=== PATIENT | male | born 1955 | race Caucasian/White ===

== ENCOUNTER 2023-04-07 07:51 | Outpatient (OUT) | payer OTHER, SELFPAY ==
[2023-04-07 08:49] LABS: Basophils Absolute Auto 0.1 10^3/uL (0.0-0.1); Eosinophils Absolute Auto 0.3 10^3/uL (0.0-0.7); Eosinophils Percent Auto 3.8 % (0.9-7.0); Hematocrit 46.3 % (42.0-54.0); Hemoglobin 15.2 g/dL (14.0-18.0); Immature Granulocytes Abs Auto 0.04 10^3/uL (0.00-0.03); Immature Granulocytes Pct Auto 0.5 % (0.0-0.5); Lymphocytes Absolute Auto 1.8 10^3/uL (1.2-3.8); Lymphocytes Percent Auto 21.1 % (20.5-60.0); Mean Corpuscular HGB Conc 32.8 g/dL (29.9-35.2); Mean Corpuscular Hemoglobin 29.3 pg (25.9-34.0); Mean Corpuscular Volume 89.4 fL (80.0-94.0); Mean Platelet Volume 10.5 fL (9.5-13.5); Monocytes Absolute Auto 0.9 10^3/uL (0.3-0.8); Monocytes Percent Auto 10.6 % (1.7-12.0); Neutrophils Absolute Auto 5.3 10^3/uL (1.4-6.5); Platelet Count 314 10^3/uL (150-450); Red Blood Count 5.18 10^6/uL (4.70-6.10); Red Cell Distribution Width 13.1 % (11.0-15.0); White Blood Count 8.4 10^3/uL (4.0-11.0)
[2023-04-07 10:04] LABS: Free T4 1.05 ng/dL (0.76-1.46)
[2023-04-07 10:10] LABS: Prostate Specific Antigen Scrn 0.84 ng/mL (<=4.00)
[2023-04-07 10:43] LABS: Alanine Aminotransferase 23 U/L (16-63); Albumin Globulin Ratio 1.1; Alkaline Phosphatase 94 U/L (46-116); Anion Gap 10.7; Aspartate Amino Transferase 12 U/L (15-37); BUN Creatinine Ratio 21.1; Bilirubin Total 0.6 mg/dL (0.2-1.0); Calcium 8.8 mg/dL (8.5-10.1); Carbon Dioxide 27.1 mmol/L (21.0-32.0); Chloride 105 mmol/L (98-107); Chol HDL Ratio 3.6; Cholesterol 157 mg/dL (<=200); Estimated GFR (African America >60 (>=60); Estimated GFR (Non-African Ame >60 (>=60); Globulin 3.8 g/dL; Glucose 124 mg/dL (74-106); HDL Cholesterol 44 mg/dL (40-60); LDL Cholesterol Calculated 91.2 mg/dL; Potassium 3.8 mmol/L (3.5-5.1); Sodium 139 mmol/L (136-145); Thyroid Stimulating Hormone 4.479 uIU/mL (0.358-3.740); Total Protein 7.8 g/dL (6.4-8.2); Triglycerides 109 mg/dL (<=150); VLDL CHOLESTEROL 21.8 mg/dL
[2023-04-07 11:45] LABS: Estimated Average Glucose 128 mg/dL; Glycohemoglobin A1C 6.1 % (4.5-6.2)
[2023-04-07 12:02] LABS: Microalbumin Urine Random <1.3 mg/dL (<=30.0)
[2023-04-07 12:19] LABS: Bilirubin Urine NEGATIVE (NEGATIVE); Blood Urine NEGATIVE (NEGATIVE); Clarity Urine CLEAR (CLEAR); Color Urine LT. YELLOW (YELLOW); Glucose Urine UA NEGATIVE (NEGATIVE); Ketones Urine NEGATIVE (NEGATIVE); Leukocyte Esterase Urine NEGATIVE (NEGATIVE); Nitrite Urine NEGATIVE (NEGATIVE); Protein Urine NEGATIVE (NEG/TRACE); Urobilinogen Urine 0.2 EU/dL (0.2-1.0)
[2023-04-07 13:24] LABS: Bacteria Urine NONE SEEN #/HPF (NONE SEEN); Mucus Urine NONE SEEN (NONE SEEN); RBC Urine NONE SEEN #/HPF (0-2); WBC Urine NONE SEEN #/HPF (NONE SEEN)
[2023-04-07 13:25] LABS: Squamous Epithelial Cell Urine RARE #/LPF (NONE/RARE)
== END 2023-04-07 07:52 | disposition home or self-care (01) ==
LOC: LAB 07:58
PROVIDERS: PCP Nurse Practitioner; Visit Provider Nurse Practitioner
DX: R73.03 Prediabetes (principal); E03.9 Hypothyroidism, unspecified; E78.5 Hyperlipidemia, unspecified; Z12.5 Encounter for screening for malignant neoplasm of prostate
CPT/HCPCS: 36415; 80053; 80061; 81001; 82043; 83036; 84439; 84443; 85025; G0103

== ENCOUNTER 2023-11-14 13:36 | Outpatient (OUT) | payer OTHER, SELFPAY | END 2023-11-14 13:37 | disposition home or self-care (01) | LOC: PST 13:36 | PROVIDERS: PCP Nurse Practitioner; Visit Provider Surgery | DX: Z86.010 Personal history of colon polyps (principal) ==

== ENCOUNTER 2023-11-22 07:18 | Day surgery (SDC) | payer OTHER, SELFPAY ==
--- NOTE | 2023-11-22 | OP_ITS ---
OPERATION DATE: 11/22/2023 PREOPERATIVE DIAGNOSIS: Personal history of colon polyps. POSTOPERATIVE DIAGNOSIS: A 3 mm descending colon polyp. PROCEDURE: Colonoscopy to cecum with cold biopsy forceps polypectomy x1 for a 3 mm descending colon polyp. SURGEON: Jason Arriaza M.D. ANESTHESIA: Monitored anesthesia care. ESTIMATED BLOOD LOSS: Less than 1 mL. INDICATIONS AND CONSENT: Patient is a 67-year-old male with a personal history of colon polyps. Indications, risks, benefits, alternatives of proceeding with colonoscopy were explained extensively to the patient, including the risks of bleeding, colon perforation or anesthetic complications. All of his questions were answered. Informed consent was obtained. PROCEDURE: Patient brought to the operating room, placed in the left lateral decubitus position. Monitored anesthesia care was provided. Rectal exam was performed which showed no masses or blood. The scope was inserted into the anal canal. Under direct visualization was advanced. With the aid of abdominal compression, it was advanced to the cecum where cecal markings were clearly identified. There was noted to be a good prep. Upon withdrawal of the scope, mucosal surfaces were carefully examined. There were no mass lesions or inflammatory changes. Within the descending colon, there was noted to be a 3 mm sessile polyp that was removed with cold biopsy forceps with good hemostasis. Within the sigmoid colon, there was moderate to severe sigmoid diverticulosis without inflammatory changes or scarring. The scope was retroflexed in the anal canal. There were prominent rectal veins. No significant hemorrhoidal disease. The scope was then withdrawn. Patient tolerated procedure well, was sent to recovery room in good condition. Follow up colonoscopy should be in five years. CC: Sabine Verde, ELVA MARTÍNEZ
--- OUTSIDE RECORDS SUMMARY | 2023-11-22 07:21 | XMS_ITS | CCD ---
Author Name Unknown Address [address] [place] [address] Organization [facility] Care Team Providers Care Retort Engineer Name Role Phone SABINE VERDE Primary Care Physician SABINE VERDE Attending Unavailable KELSEY ESTRADA Attending Unavailable SABINE VERDE Attending Unavailable Julissa Alvarado Attending Unavailable Jason QUISPE Attending Unavailable SABINE VERDE Referring Unavailable Allergies Allergy Classification Reported Allergen(s) Allergy Type Date of Onset Reaction(s) Facility (2 sources) HYDROcodone; Translations: [hydrocodone] Drug Allergy Gastrointestinal irritation (disorder) General [facility] (2 sources) iodinated radiocontrast dyes; Translations: [iodinated radiocontrast agents] Propensity to adverse reactions to drug Anaphylaxis (disorder) General Surgery [facility] (1 source) No Known Medication Allergies; Translations: [No Known Medication Allergies] Propensity to adverse reactions (disorder) [facility] Repository Medications Current Medications Medication Drug Class(es) Dates Sig (Normalized) Sig (Original) Albuterol (Eqv-Proventil HFA) 90 mcg/inh inhalation aerosol (2 sources) Start: 10-11-2022 take 2 puff(s) by inhalation every six hours as needed for wheezing Albuterol (Eqv-Proventil HFA) 90 mcg/inh inhalation aerosol = 2 puff(s), Inhalation, q6hr, PRN Shortness of breath or wheezing, Refills(s) 0 Start Date: 10/11/22 Status: Ordered Start: 10-11-2022 Albuterol (Eqv -Proventil HFA) 90 mcg/inh inhalation aerosol Refills(s) 0 Start Date: 10/11/22 Status: Ordered amitriptyline hydrochloride 10 mg oral tablet (2 sources) Tricyclic Antidepressant Start: 10-11-2022 take 1 tablet by mouth once daily at bedtime amitriptyline 10 mg Tab 10 mg = 1 tab(s), Oral, Once a day (at bedtime), Refills(s) 0 Start Date: 10/11/22 Status: Ordered atorvastatin 40 mg oral tablet (2 sources) HMG-CoA Reductase Inhibitor Start: 10-11-2022 take 1 tablet by mouth once daily atorvastatin 40 mg Tab 40 mg = 1 tab(s), Oral, Daily, Refills(s) 0 Start Date: 10/11/22 Status: Ordered 24 hr buPROPion hydrochloride 300 mg extended release oral tablet (1 source) Aminoketone Start: 10-19-2023 take 1 tablet by mouth once daily Wellbutrin XL 300 mg/24 hours Tab-ER 300 mg = 1 tab(s), Oral, Daily, Refills(s) 0 Start Date: 10/19/23 Status: Ordered cetirizine hydrochloride 10 mg oral tablet (1 source) Histamine-1 Receptor Antagonist Start: 10-19-2023 take 1 tablet by mouth once daily cetirizine 10 mg Tab 10 mg = 1 tab(s), Oral, Daily, Refills(s) 0 Start Date: 10/19/23 Status: Ordered ibuprofen 600 mg oral tablet (1 source) Nonsteroidal Anti-inflammatory Drug Start: 10-11-2022 ibuprofen 600 mg Tab Refills(s) 0 Start Date: 10/11/22 Status: Ordered levothyroxine sodium 0.088 mg oral tablet (2 sources) l-Thyroxine Start: 10-19-2023 take 1 tablet by mouth once daily levothyroxine 88 mcg (0.088 mg) Tab 88 mcg = 1 tab(s), Oral, Daily, Refills(s) 0 Start Date: 10/19/23 Status: Ordered Start: 10-11-2022 levothyroxine 75 mcg (0.075 mg) Tab Refills(s) 0 Start Date: 10/11/22 Status: Ordered lisinopril 10 mg oral tablet (2 sources) Angiotensin Converting Enzyme Inhibitor Start: 10-11-2022 take 1 tablet by mouth once daily lisinopril 10 mg Tab 10 mg = 1 tab(s), Oral, Daily, Refills(s) 0 Start Date: 10/11/22 Status: Ordered metFORMIN hydrochloride 500 mg oral tablet (2 sources) Biguanide Start: 10-11-2022 take 1 tablet by mouth twice daily metformin 500 mg Tab 500 mg = 1 tab(s), Oral, BID, Refills(s) 0 Start Date: 10/11/22 Status: Ordered montelukast 10 mg oral tablet (2 sources) Leukotriene Receptor Antagonist Start: 10-11-2022 take 1 tablet by mouth once daily in the evening montelukast 10 mg Tab 10 mg = 1 tab(s), Oral, qPM, Refills(s) 0 Start Date: 10/11/22 Status: Ordered SUMAtriptan 25 mg oral tablet (1 source) Serotonin-1b and Serotonin-1d Receptor Agonist Start: 10-19-2023 take 1 tablet by mouth once Imitrex 25 mg Tab 25 mg = 1 tab(s), Oral, Once, Refills(s) 0 Start Date: 10/19/23 Status: Ordered tadalafil 5 mg oral tablet (4 sources) Phosphodiesterase 5 Inhibitor Start: 10-12-2022 take 1 tablet by mouth once daily, then take 1 tablet by mouth once daily, then take 4 tablets by mouth once daily Cialis 5 mg oral tablet 5 mg = 1 tab(s), Oral, Daily, Take 5mg daily for BPH and ED. Do not exceed 20mg/day total, # 30 tab(s), Refills(s) 6, Pharmacy: [facility]/pharmacy #[id number], 178, cm, 10/12/22 9:09:00 EST, Height/Length Dosing, 97.5, kg, 10/12/22 9:09:00 EST, Weight Dosing Start Date: 10/12/22 Status: Ordered Start: 10-12-2022 take 1 tablet by reese th once daily as needed, then take 2 tablets by mouth once daily as needed Cialis 10 mg Tab 10 mg = 1 tab(s), Oral, Daily, PRN for erectile dysfunction, 1-2 hours prior to intercourse. Do not exceed 20mg/day, # 30 tab(s), Refills(s) 3, Pharmacy: [facility]/pharmacy #[id number], 178, cm, 10/12/22 9:09:00 EST, Height/Length Dosing, 97.5, kg, 10/12/22 9:09:00 EST, Weight Dosing Start Date: 10/12/22 Status: Ordered Trelegy Ellipta (2 sources) Start: 10-12-2022 Trelegy Ellipt a Inhalation, Daily, Refills(s) 0 Start Date: 10/12/22 Status: Ordered Problems Problem Classification Problem Date Documented Date Episodic/Chronic Asthma (2 sources) Asthma 10-07-2022 Chronic Diabetes mellitus without complication (1 source) Prediabetes 10-19-2023 Episodic Disorders of lipid metabolism (1 source) Hyperlipidemia 10-19-2023 Chronic Diverticulosis and diverticulitis (1 source) Diverticular disease 10-19-2023 Chronic Essential hypertension (2 sources) Hypertensive disorder 10-07-2022 Chronic Hyperplasia of prostate (3 sources) Benign prostatic hypertrophy with outflow obstruction; Translations: [Benign prostatic hyperplasia with lower urinary tract symptoms] Onset: 10-12-2022 Chronic Mood disorders (1 source) Depressive disorder 10-19-2023 Chronic Other and unspecified benign neoplasm (3 sources) History of polyp of colon; Translations: [Personal history of colonic polyps] Onset: 11-07-2023 Episodic Other male genital disorders (3 sources) Male erectile dysfunction, unspecified; Translations: [Erectile dysfunction] Onset: 10-12-2022 Chronic Other nutritional; endocrine; and metabolic disorders (3 sources) Body mass index 30+ - obesity 10-07-2022 Chronic Other skin disorders (2 sources) Eruption 10-07-2022 Episodic Thyroid disorders (2 sources) Hypothyroidism 10-07-2022 Chronic Results Test Name Value Interpretation Reference Range Facil ity Consent for Procedure/Surger yon 11-08-2023 Consent for Procedure/Surgery [id number] #1.00TIFF Normal [facility] Ambulatory Visit Summaryon 0 11-07-2023 Ambulatory Visit Summary JULISA BATISTA :1955 Visit Date:11/07/2023 Ambulatory Visit Instructions Your Diagnosis Personal history of colonic polyps Your Care Team Attending Physician - Jason QUISPE MD Primary Care Physician - SABINE VERDE CNP Referring Physician - SABINE VERDE CNP This Is Your Medications List Contact prescribing physician if questions or concerns albuterol (Albuterol (Eqv-Proventil HFA) 90 mcg/inh inhalation aerosol) amitriptyline (amitriptyline 10 mg Tab) atorvastatin (atorvastatin 40 mg Tab) buPROPion (Wellbutrin XL 300 mg/24 hours Tab-ER) cetirizine (cetirizine 10 mg Tab) fluticasone/umeclidi nium/vilanterol (Trelegy Ellipta) levothyroxine (levothyroxine 88 mcg (0.088 mg) Tab) lisinopril (lisinopril 10 mg Tab) metformin (metformin 500 mg Tab) montelukast (montelukast 10 mg Tab) sumatriptan (Imitrex 25 mg Tab) tadalafil (Cialis 10 mg Tab) tadalafil (Cialis 5 mg oral tablet) Procedures Performed Sigmoidoscopy (06/15/2018), Colonoscopy (01/20/2015), Primary repair of esophageal atresia (2003), Colonoscopy, Excision of lipoma, Repair of inguinal hernia. Discharge Vitals Heart Rate (Peripheral) 76 Respiratory Rate 16 Blood Pressure 138/86 Height 177.8 cm Height 70 in Weight 106.7 kg Weight 234.74 lb BMI 33.75 Medications What How Much When Why Instructions Unchanged albuterol (Albuterol (Eqv-Proventil HFA) 90 mcg/ inh inhalation aerosol) 2 Puffs Inhalation Every 6 hours as needed for Shortness of breath or wheezing Contact prescribing physician if questions or concerns Unchanged amitriptyline (amitriptyline 10 mg Tab) 1 Tablets By Mouth Once a day (at bedtime) Contact prescribing physician if questions or concerns Unchanged atorvastatin (atorvastatin 40 mg Tab) 1 Tablets By Mouth Every day Contact prescribing physician if questions or concerns Unchanged buPROPion (Wellbutrin XL 300 mg/ 24 hours Tab-ER) 1 Tablets By Mouth Every day Contact prescribing physician if questions or concerns Unchanged cetirizine (cetirizine 10 mg Tab) 1 Tablets By Mouth Every day Contact prescribing physician if questions or concerns Unchanged fluticasone/ umeclidinium/ vilanterol (Trelegy Ellipta) Inhalation Every day Contact prescribing physician if questions or concerns Unchanged levothyroxine (levothyroxine 88 mcg (0.088 mg) Tab) 1 Tablets By Mouth Every day Contact prescribing physician if questions or concerns Unchanged lisinopril (lisinopril 10 mg Tab) 1 Tablets By Mouth Every day Contact prescribing physician if questions or concerns Unchanged metformin (metformin 500 mg Tab) 1 Tablets By Mouth 2 times a day Contact prescribing physician if questions or concerns Unchanged montelukast (montelukast 10 mg Tab) 1 Tablets By Mouth Once a day (in the evening) Contact prescribing physician if questions or concerns Unchanged sumatriptan (Imitrex 25 mg Tab) 1 Tablets By Mouth Once Contact prescribing physician if questions or concerns Unchanged tadalafil (Cialis 10 mg Tab) 1 Tablets By Mouth Every day as needed for for erectile dysfunction Erectile dysfunction 1-2 hours prior to intercourse. Do not exceed 20mg/ day Contact prescribing physician if questions or concerns Unchanged tadalafil (Cialis 5 mg oral tablet) 1 Tablets By Mouth Every day BPH with urinary obstruction Erectile dysfunction Take 5mg daily for BPH and ED. Do not exceed 20mg/ day total Contact prescribing physician if questions or concerns Allergies HYDROcodone (Gastrointestinal upset) iodinated radiocontrast dyes (Anaphylaxis) Problems Ongoing - Any problem that you are currently receiving treatment for. Asthma BMI 33.0-33.9,adult BPH with urinary obstruction Depression Diverticulosis Erectile dysfunction History of colon polyps Hyperlipidemia Hypertension Hypothyroidism Obesity (BMI 30-39.9) Personal history of colonic polyps Prediabetes Historical - Any problem that you are no longer receiving treatment for. Rash of hands Patient Survey You may receive a survey via text or e-mail asking about your office visit. Please share your experience with us by completing your survey. We appreciate your feedback and thank you for choosing us for your care. [facility] Consultation Noteon 10-05-19 24 Consultation Note [id number] #1.00TIFF [facility] Physician Referralon 024 Physician Referral [id number] #1.00TIFF [facility] Physician Referralon 024 Physician Referral [id number] #1.00TIFF [facility] Vital Signs Date Time Vital Sign Value Performing Clinician Faci litosiel 11-07-2023 13:24-0500 Blood Pressure Location Jason NILL [facility] [place] 11-07-2023 13:24-0500 Diastolic blood pressure 86 mm[Hg] Jason NILL [facility] [place] 11-07-2023 13:24-0500 Heart rate 76 /min Jason NILL [facility] [place] 11-07-2023 13:24-0500 Respiratory rate 16 /min Jason NILL [facility] [place] 11-07-2023 13:24-0500 Systolic blood pressure 138 mm[Hg] Jason NILL [facility] [place] 10-12-2022 09:06-0500 Blood Pressure Location Julissa Lue [facility] 10-12-2022 09:06-0500 Diastolic blood pressure 76 mm[Hg] Julissa Lue [facility] 10-12-2022 09:06-0500 Heart rate 78 /min Julissa Lue [facility] 10-12-2022 09:06-0500 Respiratory rate 16 /min Julissa Lue [facility] 10-12-2022 09:06-0500 Systolic blood pressure 132 mm[Hg] Julissa Lue [facility] Encounters Encounter Date Encounter Type Care Provider Facility Start: 11-07-2023 End: 11-08-2023 ambulatory Jason QUISPE Facility:[facility]3] Start: 11-07-2023 End: 11-07-2023 Patient encounter procedure [facility]ISPE [facility] Start: 10-10-2023 End: 10-10-2023 ambulatory KELSEY ESTRADA Not Available Start: 09-29-2023 ambulatory Julissa Alvarado Facility:[facility] Start: 09-28-2023 End: 09-28-2023 ambulatory SABINE VERDE Not Available Start: 08-23-2023 End: 08-23-2023 ambulatory SABINE AICHHOLZ Not Available Start: 12-14-2022 ambulatory Julissa Alvarado Facility:[facility] Start: 10-12-2022 End: 10-12-2022 Patient encounter procedure Julissa WrightEhsan Floraxel [facility] Procedures Date Procedure Procedure Detail Performing Clinician Start: 06-15-2018 Sigmoidoscopy Jason Hoover GHAZAL Start: 01-20-2015 Colonoscopy Jason ELIZABETH LL Start: 09-25-2003 Primary repair of esophageal atresia Julissa Christiano Colonoscopy Jason RADHAL Excision of lipoma Jason Hoover GHAZAL History of hernia repair Imani Alvarado Repair of inguinal hernia Prachi morgan RADHAL Immunizations Immunization Date Immunization Notes Care Provider [facility] 06-01-2023 influenza virus vaccine, unspecified formulation Jason GARCIAL [facility] [place] 05-03-2023 SARS-CoV-2 (COVID-19 ) [id number] Jason GARCIAL [facility] [place] 07-25-2022 influenza virus vaccine, unspecified formulation Julissa Christiano [facility] 07-25-2022 SARS-CoV-2 (COVID-19 ) [id number] Julissa Alvarado [facility] 07-07-2015 influenza virus vaccine, unspecified formulation Julissa Alvarado [facility] 01-20-2015 tetanus toxoid, redu osman diphtheria toxoid, and acellular pertussis vaccine, adsorbed Julissa Alvarado [facility] 07-26-2014 influenza virus vaccine, unspecified formulation Julissa Alvarado [facility] Payers Date Payer Category Payer Unknown [id number] 1955 Unknown [id number] 1955 Unknown [id number] 1955 Unknown [id number] 1955 Unknown [id number] [id number] 1955 Unknown [id number] [id number] Social History Date Type Detail Facility Start: 10-12-2022 End: 11-07-2023 Tobacco smoking status Ex-smoker (finding) [facility] Tobacco smoking status Never [facility] Sex Assigned At Male [facility] Functional Status Date Assessment Result Facility 11-07-2023 [facility] Status N[facility]A [facility] Functional Status N/A [facility] Clinical Note 11-07-2023 Note Date & Type Note Facility 11-07-2023 Note Chief Complaint consultation for colonoscopy HPI Staff 67 year old male presents on consultation from Sabine Verde for surveillance colonoscopy. Colonoscopy completed 12/2014 with polyp of ascending colon with recommended repeat in 3 years; pathology not available. Attempted colonoscopy completed 05/2018 converted to sigmoidoscopy as scope was unable to advance past descending colon; unremarkable. Father with history of colon cancer, diagnosed age 72. Denies abdominal or rectal pain. No rectal bleeding or change in bowel habits. Denies nausea or vomiting. No unexplained weight loss. History of Present Illness 67 yo male with h/o htn, hyperlipidemia, hypothyroidism, asthma, bph, referred for surveillance colonoscopy; patient had colonoscopy 12/2014 at [facility] with removal of 8 mm ascending colon polyp, pathology not available; recommend f/u colonoscopy in 3 years, had attempted colonoscopy in [place] in 2018, only got to distal descending colon; abd operations significant for inguinal hernia repair and LS Lynn fundoplication; on ibuprofen prn, no asa, no SBE prophylaxis; fmhx of colon cancer in patient's father dx in his 70's, no fmhx of IBD. no tobacco use. Review of Systems PHQ Score Initial Depression Screen Score: 0 SCORE ROS - Provider Constitutional: no fever, no sweats, no weight loss. Eyes: no glasses, no blurred vision, no visual loss. ENMT: no dentures, no hoarseness, no swallowing difficulties, no hearing loss, no ear infection(s), no nose bleeds. Cardiovascular: normal blood pressure, no chest pain, regular heartbeat, no heart murmur. Respiratory: no shortness of breath, no cough, no asthma, no wheezing. Gastrointestinal: no nausea, no vomiting, no diarrhea, no constipation, no blood in stool, no change in bowel habits, no abdominal pain, no hepatitis. Genitourinary: no kidney stones, no urine infection, no dysuria. Musculoskeletal: no pain, no weakness. Skin: no changing moles, no rash, no skin lumps. Neurologic: no seizures, no epilepsy, no headache. Psychiatric: no emotional or psychiatric problem. Heme/Lymph: no bleeding problems, no anemia, no blood clots, no transfusions. Allergy/Immunologic: no swollen lymph nodes/glands, no IV drug abuse. Other: Additional ROS info: Except as noted in the above Review of Systems and in the History of Present Illness, all other systems have been reviewed and are negative or noncontributory. Physical Exam Vitals & Measurements HR: 76(Peripheral) RR: 16 BP: 138/86 HT: 70 in HT: 177.8 cm WT: 106.7 kg WT: 234.74 lb BMI: 33.75 HEENT: normal conjunctiva, sclera clear, no scleral icterus, EOM intact, PERRLA, oral mucosa moist without lesions. Neck: trachea midline, no mass, symmetric, no thyromegaly or nodules, no adenopathy Respiratory: lungs CTA, respirations non labored. Cardiovascular: regular rate and rhythm, no murmur, no pedal edema or varicosities. Gastrointestinal: soft, non distended, no tenderness, no masses, no palpable hernias, diastasis recti no, no hepatosplenomegaly; normal bs Lymphatic: no cervical adenopathy, no supraclavicular adenopathy. Musculoskeletal: normal gait, digits and nails without infection, nodes, cyanosis, clubbing. Skin: no rashes, no lesions, no ulcers, no subcutaneous nodules, induration. Psychiatric/Neuro: oriented to time, place, person, judgement normal, affect appropriate for age, insight intact, no focal deficits. Tests: review of old records completed , Discussed surgical options, risks, and possible complications with patient. Assessment/Plan 1. Personal history of colonic polyps (Z86.010: Personal history of colonic polyps) plan colonoscopy under anesthesia, informed consent obtained. Follow-up No qualifying data available Problem List/Past Medical History Ongoing Asthma BMI 33.0-33.9,adult BPH with urinary obstruction Depression Diverticulosis Erectile dysfunction History of colon polyps Hyperlipidemia Hypertension Hypothyroidism Obesity (BMI 30-39.9) Personal history of colonic polyps Prediabetes Historical Rash of hands Procedure/Surgical History Sigmoidoscopy (06/15/2018), Colonoscopy (01/20/2015), Primary repair of esophageal atresia (2003), Colonoscopy, Excision of lipoma, Repair of inguinal hernia. Medications Albuterol (Eqv-Proventil HFA) 90 mcg/inh inhalation aerosol, 2 puff(s), Inhalation, q6hr, PRN amitriptyline 10 mg Tab, 10 mg= 1 tab(s), Oral, Once a day (at bedtime) atorvastatin 40 mg Tab, 40 mg= 1 tab(s), Oral, Daily cetirizine 10 mg Tab, 10 mg= 1 tab(s), Oral, Daily Cialis 10 mg Tab, 10 mg= 1 tab(s), Oral, Daily, PRN, 3 refills Cialis 5 mg oral tablet, 5 mg= 1 tab(s), Oral, Daily, 6 refills Imitrex 25 mg Tab, 25 mg= 1 tab(s), Oral, Once levothyroxine 88 mcg (0.088 mg) Tab, 88 mcg= 1 tab(s), Oral, Daily lisinopril 10 mg Tab, 10 mg= 1 tab(s), Oral, Daily metformin 500 mg Tab, 500 mg= 1 tab(s), Oral, BID montelukast 10 mg Tab, 10 mg= 1 tab(s), Oral, qPM Trele (more content not included)... [facility] Comment on above: Result Comment: Elec tronically Signed By: JOSE ENRIQUE PAREDES, Jason Charles.[email or web address]\Date and Time Signed: 11/07/23 14:00 EST Hospital Discharge instructions 10-12-2022 Note Date & Type Note Facility 10-12-2022 Hospital Discharge instructions Patient Education 10/12/2022 09:34:22 Benign Prostatic Hyperplasia Benign Prostatic Hyperplasia Benign prostatic hyperplasia (BPH) is an enlarged prostate gland that is caused by the normal aging process and not by cancer. The prostate is a walnut-sized gland that is involved in the production of semen. It is located in front of the rectum and below the bladder. The bladder stores urine and the urethra is the tube that carries the urine out of the body. The prostate may get bigger as a man gets older. An enlarged prostate can press on the urethra. This can make it harder to pass urine. The build-up of urine in the bladder can cause infection. Back pressure and infection may progress to bladder damage and kidney (renal) failure. What are the causes? This condition is part of a normal aging process. However, not all men develop problems from this condition. If the prostate enlarges away from the urethra, urine flow will not be blocked. If it enlarges toward the urethra and compresses it, there will be problems passing urine. What increases the risk? This condition is more likely to develop in men over the age of 50 years. What are the signs or symptoms? Symptoms of this condition include: Getting up often during the night to urinate. Needing to urinate frequently during the day. Difficulty starting urine flow. Decrease in size and strength of your urine stream. Leaking (dribbling) after urinating. Inability to pass urine. This needs immediate treatment. Inability to completely empty your bladder. Pain when you pass urine. This is more common if there is also an infection. Urinary tract infection (UTI). How is this diagnosed? This condition is diagnosed based on your medical history, a physical exam, and your symptoms. Tests will also be done, such as: A post-void bladder scan. This measures any amount of urine that may remain in your bladder after you finish urinating. A digital rectal exam. In a rectal exam, your health care provider checks your prostate by putting a lubricated, gloved finger into your rectum to feel the back of your prostate gland. This exam detects the size of your gland and any abnormal lumps or growths. An exam of your urine (urinalysis). A prostate specific antigen (PSA) screening. This is a blood test used to screen for prostate cancer. An ultrasound. This test uses sound waves to electronically produce a picture of your prostate gland. Your health care provider may refer you to a specialist in kidney and prostate diseases (urologist). How is this treated? Once symptoms begin, your health care provider will monitor your condition (active surveillance or watchful waiting). Treatment for this condition will depend on the severity of your condition. Treatment may include: Observation and yearly exams. This may be the only treatment needed if your condition and symptoms are mild. Medicines to relieve your symptoms, including: ?Medicines to shrink the prostate. ?Medicines to relax the muscle of the prostate. Surgery in severe cases. Surgery may include: ?Prostatectomy. In this procedure, the prostate tissue is removed completely through an open incision or with a laparoscope or robotics. ?Transurethral resection of the prostate (TURP). In this procedure, a tool is inserted through the opening at the tip of the penis (urethra). It is used to cut away tissue of the inner core of the prostate. The pieces are removed through the same opening of the penis. This removes the blockage. ?Transurethral incision (TUIP). In this procedure, small cuts are made in the prostate. This lessens the prostate's pressure on the urethra. ?Transurethral microwave thermotherapy (TUMT). This procedure uses microwaves to create heat. The heat destroys and removes a small amount of prostate tissue. ?Transurethral needle ablation (TUNA). This procedure uses radio frequencies to destroy and remove a small amount of prostate tissue. ?Interstitial laser coagulation (ILC). This procedure uses a laser to destroy and remove a small amount of prostate tissue. ?Transurethral electrovaporization (TUVP). This procedure uses electrodes to destroy and remove a small amount of prostate tissue. ?Prostatic urethral lift. This procedure inserts an implant to push the lobes of the prostate away from the urethra. Follow these instructions at home: Take knqb-fjk-zgfhlex and prescription medicines only as told by your health care provider. Monitor your symptoms for any changes. Contact your health care provider with any changes. Avoid drinking large amounts of liquid before going to bed or out in public. Avoid or reduce how much caffeine or alcohol you drink. Give yourself time when you urinate. Keep all follow-up visits as told by your health care provider. This is important. Contact a health care provider if: You have unexplained back pain. Your symptoms do not get better with treatment. You develop side effects from the medicine you are taking. Your urine becomes very dark or has a bad smell. Your lower abdomen becomes distended and you have trouble passing your urine. Get help right away if: You have a fever or chills. You suddenly cannot urinate. You feel lightheaded, or very dizzy, or you faint. There are large amounts of blood or clots in the urine. Your urinary problems become hard to manage. You develop moderate to severe low back or flank pain. The flank is the side of your body between the ribs and the hip. These symptoms may represent a serious problem that is an emergency. Do not wait to see if the symptoms will go away. Get medical help right away. Call your local emergency services (911 in the [place] Do not drive yourself to the hospital. Summary Benign prostatic hyperplasia (BPH) is an enlarged prostate that is caused by the normal aging process and not by cancer. An enlarged prostate can press on the urethra. This can make it hard to pass urine. This condition is part of a normal aging process and is more likely to develop in men over the age of 50 years. Get help right away if you suddenly cannot urinate. This information is not intended to replace advice given to you by your health care provider. Make sure you discuss any questions you have with your health care provider. Document Released: 09/11/2006 Document Revised: 08/06/2019 Document Reviewed: 10/16/2017 [employer] Patient Education 2020 [employer]. 10/12/2022 09:05:53 Erectile Dysfunction Erectile Dysfunction Erectile dysfunction (ED) is the inability to get or keep an erection in order to have sexual intercourse. Erectile dysfunction may include: Inability to get an erection. Lack of enough hardness of the erection to allow penetration. Loss of the erection before sex is finished. What are the causes? This condition may be caused by: Certain medicines, such as: ?Pain relievers. ?Antihistamines. ?Antidepressants. ?Blood pressure medicines. ?Water pills (diuretics). ?Ulcer medicines. ?Muscle relaxants. ?Drugs. Excessive drinking. Psychological causes, such as: ?Anxiety. ?Depression. ?Sadness. ?Exhaustion. ?Performance fear. ?Stress. Physical causes, such as: ?Artery problems. This may include diabetes, smoking, liver disease, or atherosclerosis. ?High blood pressure. ?Hormonal problems, such as low testosterone. ?Obesity. ?Nerve problems. This may include back or pelvic injuries, diabetes mellitus, multiple sclerosis, or Parkinson disease. What are the signs or symptoms? Symptoms of this condition include: Inability to get an erection. Lack of enough hardness of the erection to allow penetration. Loss of the erection before sex is finished. Normal erections at some times, but with frequent unsatisfactory episodes. Low sexual satisfaction in either partner due to erection problems. A curved penis occurring with erection. The curve may cause pain or the penis may be too curved to allow for intercourse. Never having nighttime erections. How is this diagnosed? This condition is often diagnosed by: Performing a physical exam to find other diseases or specific problems with the penis. Asking you detailed questions about the problem. Performing blood tests to check for diabetes mellitus or to measure hormone levels. Performing other tests to check for underlying health conditions. Performing an ultrasound exam to check for scarring. Performing a test to check blood flow to the penis. Doing a sleep study at home to measure nighttime erections. How is this treated? This condition may be treated by: Medicine taken by mouth to help you achieve an erection (oral medicine). Hormone replacement therapy to replace low testosterone levels. Medicine that is injected into the penis. Your health care provider may instruct you how to give yourself these injections at home. Vacuum pump. This is a pump with a ring on it. The pump and ring are placed on the penis and used to create pressure that helps the penis become erect. Penile implant surgery. In this procedure, you may receive: ?An inflatable implant. This consists of cylinders, a pump, and a reservoir. The cylinders can be inflated with a fluid that helps to create an erection, and they can be deflated after intercourse. ?A semi-rigid implant. This consists of two silicone rubber rods. The rods provide some rigidity. They are also flexible, so the penis can both curve downward in its normal position and become straight for sexual intercourse. Blood vessel surgery, to improve blood flow to the penis. During this procedure, a blood vessel from a different part of the body is placed into the penis to allow blood to flow around (bypass) damaged or blocked blood vessels. Lifestyle changes, such as exercising more, losing weight, and quitting smoking. Follow these instructions at home: Medicines Take ulgq-hhp-ctwjmxd and prescription medicines only as told by your health care provider. Do not increase the dosage without first discussing it with your health care provider. If you are using self-injections, perform injections as directed by your health care provider. Make sure to avoid any veins that are on the surface of the penis. After giving an injection, apply pressure to the injection site for 5 minutes. General instructions Exercise regularly, as directed by your health care provider. Work with your health care provider to lose weight, if needed. Do not use any products that contain nicotine or tobacco, such as cigarettes and e-cigarettes. If you need help quitting, ask your health care provider. Before using a vacuum pump, read the instructions that come with the pump and discuss any questions with your health care provider. Keep all follow-up visits as told by your health care provider. This is important. Contact a health care provider if: You feel nauseous. You vomit. Get help right away if: You are taking oral or injectable medicines and you have an erection that lasts longer than 4 hours. If your health care provider is unavailable, go to the nearest emergency room for evaluation. An erection that lasts much longer than 4 hours can result in permanent damage to your penis. You have severe pain in your groin or abdomen. You develop redness or severe swelling of your penis. You have redness spreading up into your groin or lower abdomen. You are unable to urinate. You experience chest pain or a rapid heart beat (palpitations) after taking oral medicines. Summary Erectile dysfunction (ED) is the inability to get or keep an erection during sexual intercourse. This problem can usually be treated successfully. This condition is diagnosed based on a physical exam, your symptoms, and tests to determine the cause. Treatment varies depending on the cause, and may include medicines, hormone therapy, surgery, or vacuum pump. You may need follow-up visits to make sure that you are using your medicines or devices correctly. Get help right away if you are taking or injecting medicines and you have an erection that lasts longer than 4 hours. This information is not intended to replace advice given to you by your health care provider. Make sure you discuss any questions you have with your health care provider. Document Released: 09/08/2001 Document Revised: 08/24/2018 Document Reviewed: 09/27/2017 [employer] Patient Education [employer]. Follow Up Care 09/13/2022 14:25:31 With:Julissa Alvarado MD, YVROSE, URO Address: When: Unknown [facility] Evaluation + Plan note Note Date & Type Note Facility Evaluation + Plan note Future Appointments Appointment Date:12/14/2022 10:45:00 AM Scheduled Provider:Julissa Alvarado MD Location:[facility] Appointment Type:URO Office Visit [facility] Hospital course Narrative Note Date & Type Note Facility Hospital course Narrative No data available for this section [facility] Hospital Discharge instructions Note Date & Type Note Facility Hospital Discharge instructions No data available for this section General Surgery [place] Progress note Note Date & Type Note Facility Progress note No data available for this section [facility] Reason for Referral Referred by: Julissa Alvarado MD No data available for this section Summary Purpose Family History No Family History Records Found No data available for this section No Family History Records Found Advance Directives No Advanced Directives Records FoundNo Advanced Directives Records Found Additional Source Comments Patient Care team informatio n (unrecognized section and content) Personnel Name: SABINE VERDE CNP Address: Address: [address] [place] [address] Personnel Name: SABINE VERDE CNP Address: Address: [address] [place] [address] (unrecognized sect ion and content) No Status Records FoundNo Status Records Found INFORMATION SOURCE (unrecogn ized section and content) DATE CREATED AUTHOR 10/11/2023 [facility] DATE CREATED AUTHOR AUTHOR'S ORGANIZ ATION 11/09/2023 [facility] FOR RECORDS PERTAINING TO PATIENTS WHO ARE OR HAVE BEEN ENROLLED IN A CHEMICAL DEPENDENCY/SUBSTANCEABUSE PROGRAM, SOME INFORMATION MAY BE OMITTED. This clinical summary was aggregated from multiple sources. Caution should be exercised in using it in the provision of clinical care. This summary normalizes information from multiple sources, and as a consequence, information in this document may materially change the coding, format and clinical context of patient data. In addition, data may be omitted in some cases. CLINICAL DECISIONS SHOULD BE BASED ON THE PRIMARY CLINICAL RECORDS. [employer] provides no warranty or guarantee of the accuracy or completeness of information in this document.
[2023-11-22 07:32] VITALS: BP 128/95; PULSE 92; RESP 20; TEMP 36.3; O2SAT 93; BMI 32.7
[2023-11-22] MEDS: LACTATED RINGER'S SOLUTION 1,000 ML 50 ML IV (07:50)
[2023-11-22 07:55] LABS: Glucometer 108 mg/dL (74-106)
[2023-11-22 09:00] VITALS: BP 88/59; PULSE 88; RESP 16; O2SAT 93
[2023-11-22 09:10] VITALS: BP 89/46; PULSE 82; RESP 18; O2SAT 94
[2023-11-22 09:20] VITALS: BP 101/87; PULSE 80; RESP 18; O2SAT 97
[2023-11-22 09:30] VITALS: BP 127/75; PULSE 90; RESP 16; O2SAT 95
== END 2023-11-22 09:51 | disposition home or self-care (01) ==
PROVIDERS: PCP Nurse Practitioner; Visit Provider Surgery
PROC: (CPT 00811; principal; 2023-11-22 08:20)
DX: K57.30 Diverticulosis of large intestine without perforation or abscess without bleeding (principal); Z86.010 Personal history of colon polyps; K63.5 Polyp of colon; J45.909 Unspecified asthma, uncomplicated; N40.1 Benign prostatic hyperplasia with lower urinary tract symptoms; N52.9 Male erectile dysfunction, unspecified; E78.5 Hyperlipidemia, unspecified; I10 Essential (primary) hypertension; E03.9 Hypothyroidism, unspecified; Z86.16 Personal history of COVID-19; Z80.0 Family history of malignant neoplasm of digestive organs; Z79.899 Other long term (current) drug therapy; Z79.84 Long term (current) use of oral hypoglycemic drugs; R73.03 Prediabetes; Z87.891 Personal history of nicotine dependence
CPT/HCPCS: 00811; 45380; 36415; 82948; 88305; 99999; J2704

== ENCOUNTER 2024-08-27 10:11 | Outpatient (OUT) | payer OTHER, SELFPAY ==
[2024-08-27 11:03] LABS: Internal Control Within Normal Limits; SARS-CoV-2 Ag NEGATIVE (NEGATIVE)
[2024-08-27 15:14] LABS: Anion Gap 10.3; BUN Creatinine Ratio 19.6; Calcium 9.6 mg/dL (8.5-10.1); Carbon Dioxide 31.8 mmol/L (21.0-32.0); Chloride 101 mmol/L (98-107); Estimated GFR (African America >60 (>=60 mL/min/1.73m^2); Estimated GFR (Non-African Ame >60 (>=60 mL/min/1.73m^2); Glucose 161 mg/dL (74-106); Potassium 4.1 mmol/L (3.5-5.1); Sodium 139 mmol/L (136-145)
== END 2024-08-27 10:12 | disposition home or self-care (01) ==
LOC: LAB 10:14
PROVIDERS: PCP Nurse Practitioner; Visit Provider Nurse Practitioner
DX: K52.9 Noninfective gastroenteritis and colitis, unspecified (principal); Z20.822 Contact with and (suspected) exposure to COVID-19; R11.2 Nausea with vomiting, unspecified
CPT/HCPCS: 36415; 80048; 87811

== ENCOUNTER 2024-09-13 09:19 | Outpatient (OUT) | payer OTHER, SELFPAY ==
--- NOTE | 2024-09-13 09:28 | US_ITS ---
The [address] [address] Patient Name: JULISA BATISTA MRN: [id number] date: 1955 Sex: M Assigned Patient Location: US Current Patient Location: US Accession/Order Number: [id number] Exam Date: 09/13/2024 09:30 Report Date: 09/13/2024 11:39 At the request of: SJ GUARDADO Procedure: US right upper quadrant EXAM: US right upper quadrant HISTORY: Nausea And Vomiting, Right Upper Quadrant Pain COMPARISON: None. TECHNIQUE: Grayscale, color and Doppler FINDINGS: The liver measures 18 cm in length. Diffuse increase in hepatic echotexture with no focal mass. Hepatopedal flow in the main portal vein The visualized pancreas is normal. Pancreas is poorly visualized The gallbladder is normal in size. The wall measures 3 mm, normal. Negative sonographic Goldstein sign. Common bile duct measures 6.4 mm. The right kidney is normal measuring 10.8 x 5.6 x 5.7 cm. 4 mm nonobstructing nephrolith No free fluid US/US right upper quadrant IMPRESSION: Echogenic liver suggesting hepatic steatosis 4 mm nonobstructing right nephrolith. Electronically authenticated by: KIM CHEN Date: 09/13/2024 11:39
[2024-09-13 10:38] LABS: Basophils Absolute Auto 0.1 10^3/uL (0.0-0.1); Basophils Percent Auto 1.1 % (0.2-2.0); Eosinophils Absolute Auto 0.4 10^3/uL (0.0-0.7); Eosinophils Percent Auto 5.8 % (0.9-7.0); Hematocrit 44.8 % (42.0-54.0); Hemoglobin 14.7 g/dL (14.0-18.0); Immature Granulocytes Abs Auto 0.03 10^3/uL (0.00-0.03); Immature Granulocytes Pct Auto 0.5 % (0.0-0.5); Lymphocytes Absolute Auto 1.5 10^3/uL (1.2-3.8); Lymphocytes Percent Auto 23.3 % (20.5-60.0); Mean Corpuscular HGB Conc 32.8 g/dL (29.9-35.2); Mean Corpuscular Hemoglobin 28.8 pg (25.9-34.0); Mean Corpuscular Volume 87.8 fL (80.0-94.0); Mean Platelet Volume 10.7 fL (9.5-13.5); Monocytes Absolute Auto 0.7 10^3/uL (0.3-0.8); Monocytes Percent Auto 10.9 % (1.7-12.0); Neutrophils Absolute Auto 3.8 10^3/uL (1.4-6.5); Neutrophils Percent Auto 58.4 % (43.0-75.0); Platelet Count 322 10^3/uL (150-450); Red Cell Distribution Width 12.7 % (11.0-15.0); White Blood Count 6.5 10^3/uL (4.0-11.0)
[2024-09-13 10:44] LABS: Bilirubin Urine NEGATIVE (NEGATIVE); Blood Urine NEGATIVE (NEGATIVE); Clarity Urine CLEAR (CLEAR); Color Urine YELLOW (YELLOW); Glucose Urine UA NEGATIVE (NEGATIVE); Ketones Urine NEGATIVE (NEGATIVE); Leukocyte Esterase Urine NEGATIVE (NEGATIVE); Nitrite Urine NEGATIVE (NEGATIVE); Protein Urine NEGATIVE (NEG/TRACE); Specific Gravity Urine 1.015 (1.005-1.025); Urine Microscopic Indicated NO; Urobilinogen Urine 0.2 EU/dL (0.2-1.0)
[2024-09-13 11:07] LABS: Estimated Average Glucose 143 mg/dL; Glycohemoglobin A1C 6.6 % (4.5-6.2)
[2024-09-13 11:37] LABS: Alanine Aminotransferase 19 U/L (16-63); Albumin Level 3.5 g/dL (3.4-5.0); Alkaline Phosphatase 96 U/L (46-116); Anion Gap 10.3; Aspartate Amino Transferase 11 U/L (15-37); BUN Creatinine Ratio 15.2; Bilirubin Total 1.3 mg/dL (0.2-1.0); Calcium 9.2 mg/dL (8.5-10.1); Carbon Dioxide 28.1 mmol/L (21.0-32.0); Chloride 106 mmol/L (98-107); Chol HDL Ratio 3.6; Cholesterol 154 mg/dL (<=200); Estimated GFR (African America >60 (>=60 mL/min/1.73m^2); Estimated GFR (Non-African Ame >60 (>=60 mL/min/1.73m^2); Globulin 3.6 g/dL; Glucose 131 mg/dL (74-106); HDL Cholesterol 43 mg/dL (40-60); LDL Cholesterol Calculated 98.2 mg/dL; Potassium 4.4 mmol/L (3.5-5.1); Sodium 140 mmol/L (136-145); Thyroid Stimulating Hormone 2.061 uIU/mL (0.358-3.740); Total Protein 7.1 g/dL (6.4-8.2); Triglycerides 64 mg/dL (<=150); VLDL CHOLESTEROL 12.8 mg/dL
[2024-09-13 12:22] LABS: Prostate Specific Antigen Scrn 0.84 ng/mL (<=4.00)
[2024-09-13 14:06] LABS: Free T4 1.06 ng/dL (0.76-1.46)
== END 2024-09-13 09:20 | disposition home or self-care (01) ==
PROVIDERS: PCP Nurse Practitioner; Visit Provider Nurse Practitioner
DX: Z00.00 Encounter for general adult medical examination without abnormal findings (principal); R11.2 Nausea with vomiting, unspecified; R10.11 Right upper quadrant pain; Z12.5 Encounter for screening for malignant neoplasm of prostate; R73.9 Hyperglycemia, unspecified; N20.0 Calculus of kidney
CPT/HCPCS: 36415; 76705; 80053; 80061; 81003; 83036; 84439; 84443; 85025; G0103

== ENCOUNTER 2024-09-21 17:16 | Outpatient (OUT) | payer OTHER, SELFPAY ==
--- NOTE | 2024-09-21 | XR_ITS ---
The [address] [address] Patient Name: JULISA BATISTA MRN: [id number] date: 1955 Sex: M Assigned Patient Location: [facility] Current Patient Location: [facility] Accession/Order Number: [id number] Exam Date: 09/21/2024 17:55 Report Date: 09/24/2024 15:37 At the request of: SJ GUARDADO Procedure: XR thoracic spine 3V EXAMINATION: XR thoracic spine 3V HISTORY: Thoarasic pain M54.6 COMPARISON: No relevant comparison available. FINDINGS: BONES: Mild widespread spondylosis and facet osteoarthritis. No visible acute bony abnormality. DISC SPACES: Normal. No significant disc height narrowing, subluxation, or endplate abnormality. PARASPINOUS: Negative. No paraspinous abnormality is seen. OTHER: Negative. XR/XR thoracic spine 3V IMPRESSION: Mild degenerative changes Electronically authenticated by: KIM CHEN Date: 09/24/2024 15:37
--- NOTE | 2024-09-21 | XR_ITS ---
The [address] [address] Patient Name: JULISA BATISTA MRN: [id number] date: 1955 Sex: M Assigned Patient Location: [facility] Current Patient Location: Accession/Order Number: [id number] Exam Date: 09/21/2024 17:55 Report Date: 09/24/2024 08:23 At the request of: SJ GUARDADO Procedure: XR chest 2V EXAMINATION: XR chest 2V HISTORY: Pleurisy chest pain R09.1 COMPARISON: No relevant comparison available. TECHNIQUE: PA and lateral FINDINGS: LUNGS: Minimal linear opacity in the left lung base, atelectasis is favored VASCULATURE: No increased pulmonary vasculature. PLEURA: No pneumothorax, effusion, or pleural thickening. CARDIAC: No cardiomegaly or cardiac silhouette abnormality. MEDIASTINUM: No visible mass or adenopathy. BONES: No fracture or visible bone lesion. OTHER: Negative. XR/XR chest 2V IMPRESSION: Minimal left basilar atelectasis. Electronically authenticated by: KIM CHEN Date: 09/24/2024 08:23
--- OUTSIDE RECORDS SUMMARY | 2024-09-21 17:19 | XMS_ITS | CCD ---
Author Organization [facility] Care Team Providers Care Industrial Relations Specialist Name Role Phone SABINE VERDE Primary Care Physician [phone] Julissa Alvarado Attending Unavailable Jason QUISPE Attending Unavailable Jason QUISPE Attending Unavailable SABINE VERDE Referring Unavailable Jason QUISPE Attending Unavailable Ammon MEDICAL INVESTIGATOR, Sabine Unavailable Ammon MEDICAL INVESTIGATOR, Sabine Unavailable Manohar Adorno MD Unavailable Unallocated , [facility] Provider Primary Care Provi pily Manohar Adorno MD Primary Care Provider [phone] Unallocated , [facility] Provider Primary Care Provi pily Manohar Adorno MD Primary Care Provider SABINE VERDE Attending Unavailable KELSEY ESTRADA Attending Unavailable SABINE VERDE Attending Unavailable SABINE VERDE Attending Unavailable SABINE VERDE Attending Unavailable AMMON, SABINE Attending Unavailable AMMON, SABINE Attending Unavailable Manohar Adorno MD Primary Care Provider [phone] Allergies Allergy Classification Reported Allergen(s) Allergy Type Date of Onset Reaction(s) Facility (15 sources) HYDROcodone; Translations: [hydrocodone] Drug Allergy 08-23-20 Gastrointestinal irritation (disorder), GI intolerance General Surgery [facility] (2 sources) iodinated radiocontrast dyes; Translations: [iodinated radiocontrast agents] Propensity to adverse reactions to drug Anaphylaxis (disorder) General [facility] [place] (1 source) No Known Medication Allergies; Translations: [No Known Medication Allergies] Propensity to adverse reactions (disorder) [facility] Repository (12 sources) Codeine Drug Allergy 09-28-19 12 GI intolerance [facility] Work Phone: (12 sources) egg white (chicken) allergenic extract Drug Allergy 09-28-19 12 Cough [facility] (13 sources) Iodinated Contrast Media Drug Allergy 08-23-20 23 Anaphylaxis [facility] Medications Current Medications Medication Drug Class(es) Dates Sig (Normalized) Sig (Original) [id number] 200 actuat albuterol 0.09 mg/actuat metered dose inhaler (20 sources) beta2-Adrenergic Agonist Start: 05-13-2024 End: 08-11-2024 take 2 puff(s) by inhalation every six hours for wheezing albuterol HFA 90 mcg/act inhaler Indications: Mild intermittent asthma without complication (CMS/HCC) Inhale 2 puffs every 6 (six) hours if needed for wheezing or shortness of breath 54 g 05/13/2024 Active Start: 04-29-2024 albuterol (2.5 MG/3ML) 0.083% nebulizer solution Indications: Asthmatic bronchitis with acute exacerbation, unspecified asthma severity, unspecified whether persistent (CMS/HCC) USE 1 VIAL VIA NEBULIZER EVERY 8 HOURS NEEDED FOR WHEEZING OR SHORTNESS OF BREATH 825 mL 04/29/2024 Active Albuterol (Eqv-Proventil HFA) 90 mcg/inh inhalation aerosol [...] Ordered amitriptyline hydrochloride 10 mg oral tablet (14 sources) Tricyclic Antidepressant Start: 04-13-2024 End: 07-12-2024 take 1 tablet by mouth at bedtime amitriptyline (Elavil) 10 MG tablet Indications: MDD (major depressive disorder), single episode, in partial remission (HCC) (CMS/HCC) Take 1 tablet (10 mg) by mouth at bedtime 90 tablet 1 04/13/2024 Active Start: 10-11-2022 take 1 tablet by reese th once daily at bedtime amitriptyline 10 mg Tab 10 mg = 1 tab(s), Oral, Once a day (at bedtime), Refills(s) 0 Start Date: 10/11/22 Status: Ordered atorvastatin 40 mg oral tablet (15 sources) HMG-CoA Reductase Inhibitor Start: 08-30-2024 End: 11-28-2024 take 1 tablet by mouth at bedtime atorvastatin (Lipitor) 40 MG tablet Indications: Screening for prostate cancer Take 1 tablet (40 mg) by mouth at bedtime 90 tablet 08/30/2024 11/28/2024 Active Start: 02-22-2024 End: 05-22-2024 take 1 tablet by mouth in the evening atorvastatin (Lipitor) 40 MG tablet Indications: Screening for prostate cancer Take 1 tablet (40 mg) by mouth in the evening 90 tablet 1 02/22/2024 Active Start: 10-11-2022 take 1 tablet by reese th once daily atorvastatin 40 mg Tab 40 mg = 1 tab(s), Oral, Daily, Refills(s) 0 Start Date: 10/11/22 Status: Ordered 24 hr buPROPion hydrochloride 300 mg extended release oral tablet (14 sources) Aminoketone Start: 08-30-2024 End: 11-28-2024 take 1 tablet by mouth every twenty-four hours in the morning buPROPion XL (Wellbutrin XL) 300 MG 24 hr tablet Indications: MDD (major depressive disorder), single episode, in partial remission (HCC) (CMS/HCC) Take 1 tablet (300 mg) by mouth in the morning. 90 tablet 08/30/2024 11/28/2024 Active Start: 02-22-2024 End: 05-22-2024 take 1 tablet by mouth every twenty-four hours in the morning buPROPion XL (Wellbutrin XL) 300 MG 24 hr tablet Indications: MDD (major depressive disorder), single episode, in partial remission (HCC) (CMS/HCC) Take 1 tablet (300 mg) by mouth in the morning. 90 tablet 1 02/22/2024 Active Start: 10-19-2023 take 1 tablet by mouth once da angel Wellbutrin XL 300 mg/24 hours Tab-ER 300 mg = 1 tab(s), Oral, Daily, Refills(s) 0 Start Date: 10/19/23 Status: Ordered cetirizine hydrochloride 10 mg oral tablet (13 sources) Histamine-1 Receptor Antagonist Start: 04-02-2024 End: 07-01-2024 take 1 tablet by mouth in the morning cetirizine ([facility] All[facility] Relief,Cetirizine,) 10 MG tablet Indications: Seasonal allergies Take 1 tablet (10 mg) by mouth in the morning. 90 tablet 1 04/02/2024 Active Start: 10-19-2023 take 1 tablet by reese th once daily cetirizine 10 mg Tab 10 mg = 1 tab(s), Oral, Daily, Refills(s) 0 Start Date: 10/19/23 Status: Ordered hyoscyamine sulfate 0.125 mg sublingual tablet (15 sources) Start: 08-26-2024 End: 09-02-2024 take 1 tablet by mouth every six hours hyoscyamine (Levsin/SL) 0.125 MG SL tablet Indications: Gastroenteritis Take 1 tablet (0.125 mg) by mouth every 6 (six) hours if needed for cramping for up to 7 days 28 tablet 08/26/2024 Active Start: 01-25-2024 End: 08-26-2024 hyoscyamine (Levsin/SL) 0.12 5 MG SL tablet Indications: Gastroenteritis Place 1 tablet (125 mcg) under the tongue every 6 (six) hours if needed for cramping for up to 7 days 28 tablet 01/25/2024 08/26/2024 Discontinued (Therapy completed) ibuprofen 600 mg oral tablet (14 sources) Nonsteroidal Anti-inflammatory Drug Start: 10-11-2022 ibuprofen 600 mg Tab Refills(s) 0 Start Date: 10/11/22 Status: Ordered ibuprofen 600 MG tablet Take 600 mg by mouth every 12 (twelve) hours if needed for mild pain. Active levothyroxine sodium 0.088 mg oral tablet (15 sources) l-Thyroxine Start: 09-01-2024 End: 11-30-2024 take 1 tablet by mouth before mealtime levothyroxine (Synthroid, Levoxyl) 88 MCG tablet Indications: Hypothyroidism (acquired) (CMS/HCC) Take 1 tablet (88 mcg) by mouth in the morning. Take before meals. 90 tablet 09/01/2024 11/30/2024 Active Start: 03-04-2024 End: 06-02-2024 take 1 tablet by mouth before mealtime levothyroxine (Synthroid, Levoxyl) 88 MCG tablet Indications: Hypothyroidism (acquired) (CMS/HCC) Take 1 tablet (88 mcg) by mouth in the morning. Take before meals. 90 tablet 03/04/2024 Active Start: 10-19-2023 take 1 tablet by reese th once daily levothyroxine 88 mcg (0.088 mg) Tab 88 mcg = 1 tab(s), Oral, Daily, Refills(s) 0 Start Date: 10/19/23 Status: Ordered Start: 10-11-2022 levothyroxine 75 mcg (0.075 mg) Tab Refills(s) 0 Start Date: 10/11/22 Status: Ordered lisinopril 10 mg oral tablet (14 sources) Angiotensin Converting Enzyme Inhibitor Start: 04-13-2024 End: 07-12-2024 take 1 tablet by mouth in the morning lisinopril 10 MG tablet Indications: Primary hypertension (CMS/HCC) Take 1 tablet (10 mg) by mouth in the morning. 90 tablet 1 04/13/2024 Active Start: 10-11-2022 take 1 tablet by reese th once daily lisinopril 10 mg Tab 10 mg = 1 tab(s), Oral, Daily, Refills(s) 0 Start Date: 10/11/22 Status: Ordered metFORMIN hydrochloride 500 mg oral tablet (15 sources) Biguanide Start: 08-30-2024 End: 11-28-2024 take 1 tablet by mouth in the morning metFORMIN (Glucophage) 500 MG tablet Indications: Pre-diabetes Take 1 tablet (500 mg) by mouth in the morning and 1 tablet (500 mg) in the evening. Take with meals. 180 tablet 08/30/2024 11/28/2024 Active Start: 02-22-2024 End: 05-22-2024 take 1 tablet by mouth in the morning metFORMIN (Glucophage) 500 MG tablet Indications: Pre-diabetes Take 1 tablet (500 mg) by mouth in the morning and 1 tablet (500 mg) in the evening. Take with meals. 180 tablet 1 02/22/2024 Active Start: 10-11-2022 take 1 tablet by reese th twice daily metformin 500 mg Tab 500 mg = 1 tab(s), Oral, BID, Refills(s) 0 Start Date: 10/11/22 Status: Ordered montelukast 10 mg oral tablet (14 sources) Leukotriene Receptor Antagonist Start: 04-13-2024 End: 07-12-2024 take 1 tablet by mouth at bedtime montelukast (Singulair) 10 MG tablet Indications: Seasonal allergies Take 1 tablet (10 mg) by mouth at bedtime 90 tablet 1 04/13/2024 Active Start: 10-11-2022 take 1 tablet by reese th once daily in the evening montelukast 10 mg Tab 10 mg = 1 tab(s), Oral, qPM, Refills(s) 0 Start Date: 10/11/22 Status: Ordered omeprazole 20 mg delayed release oral capsule (12 sources) Proton Pump Inhibitor Start: 07-17-2024 End: 10-15-2024 take 1 capsule by mouth before mealtime omeprazole (PriLOSEC) [address] capsule Indications: Gastroesophageal reflux disease without esophagitis Take 1 capsule (20 mg) by mouth in the morning. Take before meals. Do not crush or chew.. 90 capsule 07/17/2024 10/15/2024 Active ondansetron 4 mg disintegrating oral tablet (5 sources) Serotonin-3 Receptor Antagonist Start: 08-26-2024 End: 09-02-2024 take 1 tablet by mouth every eight hours for nausea ondansetron ODT (Zofran-ODT) 4 MG disintegrating tablet Indications: Gastroenteritis Take 1 tablet (4 mg) by mouth every 8 (eight) hours if needed for vomiting or nausea for up to 7 days 21 tablet 08/26/2024 09/02/2024 Active pimecrolimus 10 mg/ml topical cream (13 sources) Calcineurin Inhibitor Immunosuppressant Start: 10-11-2022 pimecrolimus (Elidel) 1 % cream 1 (one) time each day at the same time 10/11/2022 Active SUMAtriptan 25 mg oral tablet (14 sources) Serotonin-1b and Serotonin-1d Receptor Agonist Start: 10-19-2023 take 1 tablet by mouth once Imitrex 25 mg Tab 25 mg = 1 tab(s), Oral, Once, Refills(s) 0 Start Date: 10/19/23 Status: Ordered SUMAtriptan (Imi trex) 25 MG tablet Take 25 mg by mouth if needed for migraine. May repeat dose once in 2 hours if no relief. Do not exceed 2 doses in 24 hours. Active tadalafil 5 mg oral tablet (17 sources) Phosphodiesterase 5 Inhibitor Start: 10-12-2022 take 1 tablet by mouth once daily, then take 1 tablet by mouth once daily, then take 4 tablets by mouth once daily Cialis 5 mg oral tablet 5 mg = 1 tab(s), Oral, Daily, Take 5mg daily for BPH and ED. Do not exceed 20mg/day total, # 30 tab(s), Refills(s) 6, Pharmacy: [facility]/pharmacy #[id number], 178, cm, 10/12/22 9:09:00 EST, Height/Length [...] 20mg/day, # 30 tab(s), Refills(s) 3, Pharmacy: [facility]/pharmacy #[id number], 178, cm, 10/12/22 9:09:00 EST, Height/Length Dosing, 97.5, kg, 10/12/22 9:09:00 EST, Weight Dosing Start Date: 10/12/22 Status: Ordered tamsulosin hydrochloride 0.4 mg oral capsule (8 sources) alpha-Adrenergic Anne-Marie Start: 07-18-2024 End: 10-16-2024 take 1 capsule by mouth every twenty-four hours at bedtime tamsulosin (Flomax) 0.4 MG 24 hr capsule Indications: BPH with urinary obstruction Take 1 capsule (0.4 mg) by mouth at bedtime 90 capsule 07/18/2024 10/16/2024 Active Trelegy Ellipta (2 sources) Start: 10-12-2022 Trelegy Ellipta Inhalation, Daily, Refills(s) 0 Start Date: 10/12/22 Status: Ordered Completed/Discontinued Medications Medication Drug Class(es) Dates Sig (Normalized) Sig (Original) famotidine 20 mg oral tablet (6 sources) Histamine-2 Receptor Antagonist Start: 01-25-2024 End: 07-17-2024 take 1 tablet by mouth in the morning famotidine (Pepcid) 20 MG tablet Indications: Gastroesophageal reflux disease without esophagitis Take 1 tablet (20 mg) by mouth in the morning and 1 tablet (20 mg) before bedtime. 180 tablet 1 07/17/2024 07/17/2024 Discontinued (Therapy completed) Problems Active Problems Problem Classification Problem Date Documented Date Episodic/Chronic Abdominal pain (7 sources) Right upper quadrant pain; Translations: [Right upper quadrant pain] Onset: 08-27-2024 08-27-2024 Episodic Allergic reactions (20 sources) Allergic bronchopulmonary aspergillosis; 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] Onset: 11-09-2023 11-09-2023 Chronic Asthma (20 sources) Asthma; Translations: [Asthmatic bronchitis] Onset: 09-28-2023 10-07-2022 Chronic Blindness and vision defects (13 sources) Visual impairment; Translations: [Unspecified visual loss] Onset: 11-09-2023 11-09-2023 Chronic Calculus of urinary tract (2 sources) Kidney stone; Translations: [Calculus of kidney] Onset: 09-13-2024 09-13-2024 Episodic Diabetes mellitus without complication (2 sources) Type 2 diabetes mellitus without complication; Translations: [Type 2 diabetes mellitus without complications] Onset: 09-13-2024 09-13-2024 Chronic Disorders of lipid metabolism (14 sources) Hyperlipidemia; Translations: [Hyperlipidemia, unspecified] Onset: 11-09-2023 10-19-2023 Chronic Diverticulosis and diverticulitis (14 sources) Diverticular disease; Translations: [Diverticulosis of intestine, part unspecified, without perforation or abscess without bleeding] Onset: 11-09-2023 10-19-2023 Chronic Esophageal disorders (13 sources) Gastroesophageal reflux disease without esophagitis; Translations: [Gastro-esophageal reflux disease without esophagitis] Onset: 07-17-2024 07-17-2024 Chronic Essential hypertension (17 sources) Hypertensive disorder; Translations: [Essential (primary) hypertension] Onset: 08-23-2023 10-07-2022 Chronic Hyperplasia of prostate (16 sources) Benign prostatic hypertrophy with outflow obstruction; Translations: [Benign prostatic hyperplasia with lower urinary tract symptoms] Onset: 10-12-2022 Chronic Immunizations and screening for infectious disease (13 sources) Needs influenza immunization; Translations: [Encounter for immunization] Onset: 07-17-2024 07-17-2024 Episodic Mood disorders (16 sources) Depressive disorder; Translations: [Major depression single episode, in partial remission] Onset: 08-23-2023 10-19-2023 Chronic Nausea and vomiting (10 sources) Nausea and vomiting; Translations: [Nausea with vomiting, unspecified] Onset: 08-26-2024 08-26-2024 Episodic Other male genital disorders (16 sources) Male erectile dysfunction, unspecified; Translations: [Erectile dysfunction] Onset: 10-12-2022 Chronic Other nutritional; endocrine; and metabolic disorders (20 sources) Body mass index 30+ - obesity; Translations: [Obesity, unspecified] Onset: 09-28-2023 10-07-2022 Chronic Other screening for suspected conditions (not mental disorders or infectious disease) (20 sources) Patient encounter status; Translations: [Encounter for screening for malignant neoplasm of colon] Onset: 09-28-2023 09-28-2023 Episodic Other skin disorders (2 sources) Eruption 10-07-2022 Episodic Spondylosis; intervertebral disc disorders; other back problems (13 sources) Pain in thoracic spine; Translations: [Pain in thoracic spine] Onset: 07-17-2024 07-17-2024 Episodic Thyroid disorders (18 sources) Hypothyroidism; Translations: [Acquired hypothyroidism] Onset: 08-23-2023 10-07-2022 Chronic Past or Other Problems Problem Classification Problem Date Documented Date Episodic/Chronic Abdominal hernia (13 sources) Inguinal hernia; Translations: [Unilateral inguinal hernia, without obstruction or gangrene, not specified as recurrent] Onset: 11-09-2023 11-09-2023 Episodic Allergic reactions (13 sources) Inflammatory dermatosis; Translations: [Dermatitis, unspecified] Onset: 10-10-2023 10-10-2023 Episodic Chronic obstructive pulmonary disease and bronchiectasis (13 sources) Bronchitis; Translations: [Bronchitis, not specified as acute or chronic] Onset: 12-21-2023 12-21-2023 Episodic Diabetes mellitus without complication (20 sources) Prediabetes; Translations: [Prediabetes] Onset: 08-23-2023 Resolved: 09-13-2024 10-19-2023 Episodic Mycoses (13 sources) Onychomycosis; Translations: [Tinea unguium] Onset: 09-12-2023 09-12-2023 Episodic Noninfectious gastroenteritis (17 sources) Gastroenteritis; Translations: [Noninfective gastroenteritis and colitis, unspecified] Onset: 01-25-2024 Resolved: 07-17-2024 01-25-2024 Episodic Other and unspecified benign neoplasm (16 sources) History of polyp of colon; Translations: [Personal history of colonic polyps] Onset: 11-07-2023 Episodic Pleurisy; pneumothorax; pulmonary collapse (15 sources) Pleurisy; Translations: [Pleurisy] Onset: 11-09-2023 11-09-2023 Episodic Viral infection (13 sources) Disease caused by 2019-nCoV; Translations: [COVID-19] Onset: 12-05-2023 12-05-2023 Episodic Results Test Name Value Interpretation Reference Range Facil ity ALL CBC WITH AUTO DIFFon BASOPHILS ABSOLUTE AUTO 0.1 [facility] Basophils/100 WBC (Bld) 1.1 % 0.2 - 2.0 % [facility] Eosinophils/100 WBC (Bld) 5.8 % 0.9 - 7.0 % [facility] Erythrocyte distribution width (RBC) [Ratio] 12.7 % 11.0 - 15.0 % [facility] Hematocrit (Bld) [Volume fraction] 44.8 % 42.0 - 54.0 % [facility] Hemoglobin (Bld) [Mass/Vol] 14.7 g/dL 14.0 - 18.0 g/dL [facility] IMMATURE GRANULOCYTES ABS AUTO 0.03 [facility] Immature granulocytes/100 WBC (Bld) 0.5 % 0.0 - 0.5 % [facility] LYMPHOCYTES ABSOLUTE AUTO 1.5 [facility] Lymphocytes/100 WBC (Bld) 23.3 % 20.5 - 60.0 % [facility] MCH (RBC) [Entitic mass] 28.8 pg 25.9 - 34.0 pg [facility] MCHC (RBC) [Mass/Vol] 32.8 g/dL 29.9 - 35.2 g/dL [facility] MCV (RBC) [Entitic vol] 87.8 fL 80.0 - 94.0 fL [facility] MONOCYTES ABSOLUTE AUTO 0.7 [facility] Monocytes/100 WBC (Bld) 10.9 % 1.7 - 12.0 % [facility] NEUTROPHILS ABSOLUTE AUTO 3.8 [facility] Neutrophils/100 WBC (Bld) 58.4 % 43.0 - 75.0 % [facility] Platelet mean volume (Bld) [Entitic vol] 10.7 fL 9.5 - 13.5 fL [facility] EO # 0.4 [facility] TBH PLT 322 [facility] RBC 5.1 [facility] TB WBC 6.5 [facility] SARS-COV-2 AG*on 08-27-2024 SARS-CoV-2 (COVID-19) RNA ELSA+probe Ql (Unsp spec) Negative NEGATIVE [facility] Comment on above: This test has not be en FDA cleared or approved, but has been authorized by the FDA under an Emergency Use Authorization (EUA) for use by authorized laboratories certified under CLIA that meet the requirements to perform moderate or high complexity testing. This test has been authorized only for the detection of proteins from SARS-CoV-2, not for any other viruses or pathogens. The emergency use of this test is authorized for the duration of the declaration that circumstances exist justifying the authorization of emergency use of in vitro diagnostic tests for detection and/or diagnosis of Covid-19 under section 564(b)(1) of the Act, 21 U.S.C. 360bbb-3(b)(1), unless the declaration is terminated or authorization is revoked sooner. [facility] Path[facility] Note[facility] 12-11-2023 Pathology Note [id number] 6B#1.00TIFF Normal [facility] Pathology Noteon 12-07-2023 Pathology Note [id number] 48#1.00TIFF Normal [facility] Reminderson 12-07-2023 Reminders -- From: aZhida San LPN To: N - Clinical; Sent: 12/07/2023 09:18:33 EDT Show up: 10/22/2028 07:00:00 EST Subject: colonoscopy recall Due Date/Time: 11/22/2028 07:00:00 EST Reminder/Recall Patient due for surveillance colonoscopy 11/22/2028 due to history of tubular adenoma. Normal [facility] Outside Colonoscopyon 2023 Outside Colonoscopy [id number] 63#1.00TIFF Normal [facility] Lab Reportson 11-22-2023 Lab Reports [id number] 84#1.00TIFF Normal [facility] Consent for Procedure/Surger yon 11-08-2023 Consent for Procedure/Surgery [id number] 74#1.00TIFF Normal [facility] Ambulatory Visit Summaryon 0 11-07-2023 Ambulatory Visit Summary JAY CHANDLER :1955 Visit Date:11/07/2023 Ambulatory Visit Instructions Your [...] hours Tab-ER) cetirizine (cetirizine 10 mg Tab) fluticasone/umeclid inium/vilanterol (Trelegy Ellipta) levothyroxine (levothyroxine 88 mcg (0.088 [...] you for choosing us for your care. [facility] Consultation Noteon 10-05-19 24 Consultation Note [id number] 5C#1.00TIFF [facility] Physician Referralon 024 Physician Referral [id number] 87#1.00TIFF [facility] Physician Referralon 024 Physician Referral [id number] 0B#1.00TIFF [facility] Vital Signs Date Time Vital Sign Value Performing Clinician Facility 08-26-2024 17:06-0500 Body height 177.8 cm Sabine Verde MEDICAL INVESTIGATOR Work Phone: [facility] 08-26-2024 17:06-0500 Body mass index (BMI) [Ratio] 33 kg/m2 Sabine Verde NP Work Phone: [facility] 08-26-2024 17:06-0500 Body temperature 98.1 [degF] Sabine Verde NP Work Phone: [facility] 08-26-2024 17:06-0500 Body weight 104.33 kg Sabine Davidhholz MEDICAL INVESTIGATOR Work Phone: [facility] Comment on above: pt refuses to weigh in office he weighed himself at home before coming in today 08-26-2024 17:06-0500 Diastolic blood pressure 80 mm[Hg] Sabine Estelitaholz MEDICAL INVESTIGATOR Work Phone: [facility] 08-26-2024 17:06-0500 Heart rate 91 /min Sabine Aichholz MEDICAL INVESTIGATOR Work Phone: [facility] 08-26-2024 17:06-0500 Respiratory rate 21 /min Sabine Aichholz MEDICAL INVESTIGATOR Work Phone: [facility] 08-26-2024 17:06-0500 SaO2% (BldA) [Mass fraction] 98 % Sabine Frankiehholz MEDICAL INVESTIGATOR Work Phone: [facility] 08-26-2024 17:06-0500 Systolic blood pressure 110 mm[Hg] Sabine Aichholz MEDICAL INVESTIGATOR Work Phone: [facility] 07-17-2024 14:37-0400 Body height 177.8 cm Sabine Aichholz MEDICAL INVESTIGATOR Work Phone: [facility] 07-17-2024 14:37-0400 Body mass index (BMI) [Ratio] 33.72 kg/m2 Sabine Aichholz MEDICAL INVESTIGATOR Work Phone: [facility] 07-17-2024 14:37-0400 Body temperature 98.8 [degF] Sabine Frankiehholz MEDICAL INVESTIGATOR Work Phone: [facility] 07-17-2024 14:37-0400 Body weight 106.59 kg Sabine Aichholz MEDICAL INVESTIGATOR Work Phone: [facility] 07-17-2024 14:37-0400 Diastolic blood pressure 78 mm[Hg] Sabine Aichholz MEDICAL INVESTIGATOR Work Phone: [facility] 07-17-2024 14:37-0400 Heart rate 89 /min Sabine Aichholz MEDICAL INVESTIGATOR Work Phone: [facility] 07-17-2024 14:37-0400 Respiratory rate 19 /min Sabine Caponejasmyne MEDICAL INVESTIGATOR Work Phone: [facility] 07-17-2024 14:37-0400 SaO2% (BldA) [Mass fraction] 97 % Sabine Caponejasmyne MEDICAL INVESTIGATOR Work Phone: [facility] 07-17-2024 14:37-0400 Systolic blood pressure 118 mm[Hg] Sabine Caponejasmyne MEDICAL INVESTIGATOR Work Phone: [facility] 11-07-2023 13:24-0500 Blood Pressure Location Jason NILL [facility] 11-07-2023 13:24-0500 Diastolic blood pressure 86 mm[Hg] Jason NILL [facility] 11-07-2023 13:24-0500 Heart rate 76 /min Jason NILL [facility] 11-07-2023 13:24-0500 Respiratory rate 16 /min Jason NILL [facility] 11-07-2023 13:24-0500 Systolic blood pressure 138 mm[Hg] Jason NILL [facility] 10-12-2022 09:06-0500 Blood Pressure Location Julissa Lue [facility] 10-12-2022 09:06-0500 Diastolic blood pressure 76 mm[Hg] Julissa Lue [facility] 10-12-2022 09:06-0500 Heart rate 78 /min Julissa Lue [facility] 10-12-2022 09:06-0500 Respiratory rate 16 /min Julissa Lue [facility] 10-12-2022 09:06-0500 Systolic blood pressure 132 mm[Hg] Julissa Alvarado [facility] Encounters Encounter Date Encounter Type Care Provider Facility Start: 09-13-2024 End: 09-13-2024 Clinisync Result Encounter Sabine Aichholz MEDICAL INVESTIGATOR Work Phone: [facility] Unsolicited Start: 09-13-2024 End: 09-13-2024 Clinisync Result Encounter Sabine Aichholz MEDICAL INVESTIGATOR Work Phone: [facility] Unsolicited Start: 09-13-2024 End: 09-13-2024 Orders Only Sabine Aichholz MEDICAL INVESTIGATOR Work Phone: [facility] Comment on above: RUQ pain (Primary Dx ); Type 2 diabetes mellitus without complication, without long-term current use of insulin ([facility]); Kidney stone on right side Start: 08-31-2024 End: 09-01-2024 Refill Sabine Aichholz MEDICAL INVESTIGATOR Work Phone: [facility] Comment on above: Hypothyroidism (acqu ired) ([facility]) Start: 08-27-2024 End: 08-27-2024 Clinisync Result Encounter Sabine Aichholz MEDICAL INVESTIGATOR Work Phone: [facility] Unsolicited Start: 08-27-2024 End: 08-27-2024 Clinisync Result Encounter Sabine Aichholz MEDICAL INVESTIGATOR Work Phone: [facility] Unsolicited Start: 08-27-2024 End: 08-27-2024 Orders Only Sabine Aichholz MEDICAL INVESTIGATOR Work Phone: [facility] Comment on above: Nausea and vomiting, unspecified vomiting type (Primary Dx); RUQ pain; Elevated serum glucose Start: 08-26-2024 End: 08-26-2024 ambulatory SABINE AICHHOLZ Not Available Start: 08-26-2024 End: 08-26-2024 Office outpatient visit 15 minutes Sabine Aichholz MEDICAL INVESTIGATOR Work Phone: [facility] Comment on above: Nausea and vomiting, unspecified vomiting type (Primary Dx); Obesity (BMI 30-39.9); Gastroenteritis Start: 08-26-2024 End: 08-26-2024 Bamboo flowsheet Sabine Verde MEDICAL INVESTIGATOR Work Phone: [facility] Start: 08-26-2024 End: 08-26-2024 Bamboo flowsheet Sabine Verde MEDICAL INVESTIGATOR Work Phone: [facility] Start: 07-17-2024 End: 07-17-2024 ambulatory SABINE VERDE Not Available Start: 07-17-2024 End: 07-17-2024 Office outpatient visit 25 minutes Sabine Verde MEDICAL INVESTIGATOR Work Phone: [facility] Comment on above: Primary hypertension (CMS/HCC) (Primary Dx); Allergic bronchopulmonary aspergillosis (CMS/HCC); Encounter for wellness examination in adult; Screening for prostate cancer; Needs flu shot; Pleurisy; Gastroenteritis; Gastroesophageal reflux disease without esophagitis; Obesity (BMI 30-39.9); Hypothyroidism (acquired) (CMS/HCC); Pre-diabetes; Major depressive disorder with single episode, in partial remission (HCC) (CMS/HCC); Thoracic spine pain Start: 07-17-2024 End: 07-17-2024 Bamboo flowsheet Sabine Verde MEDICAL INVESTIGATOR Work Phone: [facility] Start: 07-17-2024 End: 07-17-2024 Bamboo flowsheet Sabine Verde MEDICAL INVESTIGATOR Work Phone: [facility] Start: 07-17-2024 End: 07-17-2024 Patient encounter status Sabine Verde NP Work Phone: [facility] Start: 05-13-2024 End: 08-11-2024 Refill Teofilo Coronado MD Work Phone: [facility] Start: 05-13-2024 End: 05-13-2024 Refill Sabine Verde MEDICAL INVESTIGATOR Work Phone: [facility] Comment on above: Mild intermittent as thma without complication (CMS/HCC) (Primary Dx) Start: 03-18-2024 End: 03-18-2024 ambulatory SABINE AICHHOLZ Not Available Start: 01-25-2024 End: 01-25-2024 ambulatory SABINE AICHHOLZ Not Available Start: 12-05-2023 ambulatory Jason R NILL Facility : [facility] Start: 11-22-2023 End: 2023 ambulatory Jason R NILL Facility: [facility] Start: 11-16-2023 End: 11-16-2023 ambulatory SABINE AICHHOLZ Not Available Start: 11-07-2023 End: 11-08-2023 ambulatory Jason R NILL Facility: [facility] Start: 11-07-2023 End: 11-07-2023 Patient encounter procedure Jason R RADHAL [facility] Start: 10-10-2023 End: 10-10-2023 ambulatory KELSEY Disha ESTRADA Not Available Start: 09-29-2023 ambulatory Julissa Alvarado Facility:[facility] Start: 09-28-2023 End: 09-28-2023 ambulatory SABINE AICHHOLZ Not Available Start: 12-14-2022 ambulatory Julissa Alvarado Facility:[facility] Start: 10-12-2022 End: 10-12-2022 Patient encounter procedure Julissa Alvarado [facility] Procedures Date Procedure Procedure Detail Performing Clinician Start: 09-13-2024 ALL CBC WITH AUTO DIFF Sabine Ammon MEDICAL INVESTIGATOR Work Phone: Start: 08-27-2024 SARS-COV-2 AG* Sabine Frankie hholz MEDICAL INVESTIGATOR Work Phone: Start: 06-15-2018 Sigmoidoscopy Jason HARMAN Start: 02-06-2015 Colonoscopy Sabine Aichh olz MEDICAL INVESTIGATOR Work Phone: Start: 01-20-2015 Colonoscopy Jason ERICKSON Start: 09-25-2003 Primary repair of esophageal atresia Julissa Alvarado Colonoscopy Jason GARCIAL Excision of lipoma Jason HARMAN History of hernia repair Imani Alvarado Repair of inguinal hernia Prachi QUISPE Plan of Treatment Date Care Activity Detail Author Start: 11-22-2028 Screening for malign ant neoplasm of colon [facility] Start: 10-14-2024 End: 10-14-2024 [facility] Start: 09-23-2024 End: 09-23-2024 Patient encounter procedure 09/23/2024 7:00 PM EST Office Visit [facility] [address] [place] [address] Sabine Verde, MEDICAL INVESTIGATOR [address] [place] [phone] [facility] Start: 09-13-2024 End: 09-13-2025 NM Gallbladder Views W cholecystokinin and W radionuclide IV NM hepatobiliary w cholecystokinin Imaging Routine RUQ pain Expected: 09/13/2024 (Approximate), Expires: 09/13/2025 [facility] Work Phone: Comment on above: Expected: 09/13/2024 (Approximate), Expires: 09/13/2025 Start: 09-13-2024 End: 09-13-2025 XR Abdomen Single view XR ABDOMEN 2 VIEW Imaging Routine Kidney stone on right side Expected: 09/13/2024, Expires: 09/13/2025 [facility] Comment on above: Expected: 09/13/2024 , Expires: 09/13/2025 Start: 09-12-2024 End: 09-12-2024 Patient encounter procedure 09/12/2024 2:40 PM EST Office Visit [facility] [address] [place] [address] Sabine Verde, PRIYA [address] [place] [phone] [facility] Start: 08-27-2024 End: 08-27-2025 Hemoglobin A1c/Hemoglobin.total in Blood Hemoglobin A1c Lab Routine Elevated serum glucose Expected: 08/27/2024 (Approximate), Expires: 08/27/2025 [facility] Comment on above: Expected: 08/27/2024 (Approximate), Expires: 08/27/2025 Start: 08-27-2024 End: 08-27-2025 US Gallbladder US gallbladder Imaging Routine Nausea and vomiting, unspecified vomiting type RUQ pain Expected: 08/27/2024 (Approximate), Expires: 08/27/2025 [facility] Work Phone: Comment on above: Expected: 08/27/2024 (Approximate), Expires: 08/27/2025 Start: 08-26-2024 End: 08-26-2025 Basic metabolic 1998 panel - Serum or Plasma Basic metabolic panel Lab Routine Gastroenteritis Expected: 08/26/2024 (Approximate), Expires: 08/26/2025 [facility] Work Phone: Comment on above: Expected: 08/26/2024 (Approximate), Expires: 08/26/2025 Start: 07-17-2024 End: 07-17-2024 Patient encounter procedure 07/17/2024 2:20 PM EDT Office Visit [facility] [address] [place] [phone] Sabine Verde NP [address] [place] [phone] [facility] Start: 07-17-2024 End: 07-17-2025 CBC W Auto Differential panel - Blood CBC and differential Lab Routine Encounter for wellness examination in adult Expected: 07/17/2024 (Approximate), Expires: 07/17/2025 [facility] Work Phone: Comment on above: Expected: 07/17/2024 (Approximate), Expires: 07/17/2025 Start: 07-17-2024 End: 07-17-2025 Comprehensive metabolic 2000 panel - Serum or Plasma Comprehensive metabolic panel Lab Routine Encounter for wellness examination in adult Expected: 07/17/2024 (Approximate), Expires: 07/17/2025 [facility] Comment on above: Expected: 07/17/2024 (Approximate), Expires: 07/17/2025 Start: 07-17-2024 End: 07-17-2025 Lipid 1996 panel - Serum or Plasma Lipid panel Lab Routine Encounter for wellness examination in adult Expected: 07/17/2024 (Approximate), Expires: 07/17/2025 [facility] Comment on above: Expected: 07/17/2024 (Approximate), Expires: 07/17/2025 Start: 07-17-2024 End: 07-17-2025 Prostate specific Ag [Mass/volume] in Serum or Plasma PSA Lab Routine Screening for prostate cancer Expected: 07/17/2024 (Approximate), Expires: 07/17/2025 [facility] Comment on above: Expected: 07/17/2024 (Approximate), Expires: 07/17/2025 Start: 07-17-2024 End: 07-17-2025 Thyrotropin [Units/volume] in Serum or Plasma TSH Lab Routine Encounter for wellness examination in adult Expected: 07/17/2024 (Approximate), Expires: 07/17/2025 [facility] Comment on above: Expected: 07/17/2024 (Approximate), Expires: 07/17/2025 Start: 07-17-2024 End: 07-17-2025 Thyroxine (T4) free [Mass/volume] in Serum or Plasma T4, free Lab Routine Encounter for wellness examination in adult Expected: 07/17/2024 (Approximate), Expires: 07/17/2025 [facility] Comment on above: Expected: 07/17/2024 (Approximate), Expires: 07/17/2025 Start: 07-17-2024 End: 07-17-2025 Urinalysis complete panel - Urine Urinalysis with reflex microscopic (clean catch) Lab Routine Encounter for wellness examination in adult Expected: 07/17/2024 (Approximate), Expires: 07/17/2025 [facility] Comment on above: Expected: 07/17/2024 (Approximate), Expires: 07/17/2025 Start: 07-17-2024 End: 07-17-2025 XR Chest 2 Views XR chest 2 views Imaging Routine Pleurisy Expected: 07/17/2024 (Approximate), Expires: 07/17/2025 [facility] Comment on above: Expected: 07/17/2024 (Approximate), Expires: 07/17/2025 Start: 07-17-2024 End: 07-17-2025 XR Thoracic spine 3 Views XR thoracic spine 3 views Imaging Routine Thoracic spine pain Expected: 07/17/2024 (Approximate), Expires: 07/17/2025 [facility] Comment on above: Expected: 07/17/2024 (Approximate), Expires: 07/17/2025 Start: 05-26-2024 Influenza vaccination Influenza Vacc ine (#1) [facility] Start: 1955 Screening for malign ant neoplasm of colon [facility] Immunizations Immunization Date Immunization Notes Care Provider Tadeo bergeron 07-17-2024 Seasonal trivalent influenza vaccine, adjuvanted, preservative free Sabine Verde MEDICAL INVESTIGATOR Work Phone: [facility] 09-14-2023 SARS-CoV-2, Unspecified Sabine Verde MEDICAL INVESTIGATOR Work Phone: [facility] 08-30-2023 RSV, recombinant, protein subunit RSVpreF, adjuvant reconstitu, 120mcg/0.5mL, PF (Arexvy) Sabine Verde MEDICAL INVESTIGATOR Work Phone: [facility] 06-01-2023 influenza virus vaccine, unspecified formulation Jason QUISPE [facility] 06-01-2023 Influenza, Seasonal, Quadrivalent, Adjuvanted Sabine Verde MEDICAL INVESTIGATOR Work Phone: [facility] 05-03-2023 SARS-CoV-2 (COVID-19 ) [id number] Jason GARCIAL [facility] 07-25-2022 influenza virus vaccine, unspecified formulation Julissa Lue [facility] 07-25-2022 Influenza, High-dose Seasonal, Quadrivalent, Preservative Free Sabine Aichholz MEDICAL INVESTIGATOR Work Phone: [facility] 07-25-2022 SARS-CoV-2 (COVID-19 ) [id number] Julissa Lue [facility] 07-07-2015 influenza virus vaccine, unspecified formulation Julissa Lue [facility] 07-07-2015 influenza, seasonal, injectable, preservative free Sabine Aichholz MEDICAL INVESTIGATOR Work Phone: [facility] 01-20-2015 tetanus toxoid, redu osman diphtheria toxoid, and acellular pertussis vaccine, adsorbed Julissa Lue [facility] 07-26-2014 influenza virus vaccine, unspecified formulation Julissa Lue [facility] 07-26-2014 influenza, seasonal, injectable Sabine Aichholz MEDICAL INVESTIGATOR Work Phone: [facility] Payers Date Payer Category Payer Private Health Insurance [employer] [id number] 2023 Unknown [employer] [id number] 2023-Present [address] [place] [address] [id number] 2022 Unknown [id number] 1955 Unknown [id number] 1955 Unknown [id number] 727 1955 Unknown [id number] 727 1955 Unknown [id number] 727 1955 Unknown [id number] 1259 1955 Unknown [id number]. 1259 1955 Unknown [id number]. 1259 1955 Unknown [id number]. 1259 1955 Unknown [id number]. 1259 1955 Unknown [id number] 1259 1955 Unknown [id number] 1259 Social History Date Type Detail Facility Start: 10-12-2022 End: 11-07-2023 Tobacco smoking status Ex-smoker (finding) [facility] Tobacco smoking status Never [facility] Start: 11-02-2023 End: 03-18-2024 Sex Assigned At Male [facility] Start: 08-23-2023 Tobacco smoking stat us NHIS Never smoked tobacco [facility] Start: 08-23-2023 Tobacco use and exposure Smoke less tobacco non-user [facility] Start: 03-18-2024 End: 08-26-2024 Alcoholic beverage intake [facility] (finding) [facility] Start: 11-02-2023 End: 03-18-2024 History of Social function [facility] Within the last year , have you been afraid of your partner or ex-partner? No [facility] Do you belong to any clubs or organizations such as episcopal groups, unions, fraternal or athletic groups, or school groups? Yes [facility] Are you now , , , , never or living with a partner? [facility] How often to you hav e a drink containing alcohol? Monthly or less [facility] How many standard dr inks containing alcohol do you have on a typical day? 1 or 2 [facility] How often do you hav e 6 or more drinks on 1 occasion? Never [facility] Do you feel stress - tense, restless, nervous, or anxious, or unable to sleep at night because your mind is troubled all the time - these days [OSQ] Not at all [facility] (I/We) worried wheth er (my/our) food would run out before (I/we) got money to buy more. Never true [facility] Start: 1955 Sex assigned at Not on file [facility] Functional Status Date Assessment Result Facility 11-07-2023 Functional Status N/A [facility] 10-12-2022 Functional Status N/A [facility] Clinical Notes 10-12-2022 to 08-26-2024 Sabine Verde NP - 08/26/2024 5:48 PM Lidia Verde NP - 08/26/2024 5:37 PM ESTNORAH VELIZ - 08/26/2024 5:00 PM Lidia Verde NP - 08/26/2024 5:00 PM ESTPatient Instructions Note Date & Type Note Facility 08-26-2024 History of Present illness Narrative Associated Problem(s): Nausea & vomiting Zofran prn 2 oz fluids, hourly as tolerated Advanced diet as tolerated Associated Problem(s): Gastroenteritis Fluids, rest Treat symptoms, check of COVID No signs of acute abd Pt started with symptoms of watery stools on Monday evening. Yesterday he did have vomiting a few times. Pt is unsure if he was vomiting due to the medication or since his procedure. Pt had a low grade fever as high as 100. Pt has headaches, coughing up white mucus, weakness and fatigue Pt has not eaten since yesterday. Pt has been sipping sprite Pt has stopped vomiting since 2am Pt now only has fluid bowels Images from the original note were not included. Jay Chandler is a 68 y.o. male presents with chief complaint of Fever and Diarrhea HPI: GI Problem The primary symptoms include fever, fatigue, nausea, vomiting, diarrhea and myalgias. Primary symptoms do not include jaundice, hematochezia or dysuria. The illness began 3 to 5 days ago. The problem has not changed since onset. The fever began 3 to 5 days ago. The maximum temperature recorded prior to his arrival was 100 to 100.9 F. The fatigue began 3 to 5 days ago. The fatigue has been unchanged since its onset. Nausea began 2 days ago. The nausea is associated with eating. The nausea is exacerbated by food. The vomiting began more than 2 days ago. Vomiting occurs 2 to 5 times per day. The diarrhea began 3 to 5 days ago. The diarrhea is watery. The diarrhea occurs 5 to 10 times per day. The illness does not include dysphagia, odynophagia, bloating, constipation or tenesmus. Significant associated medical issues include GERD. SUBJECTIVE: MEDICATIONS: Current Outpatient Medications Medication Instructions albuterol (2.5 MG/3ML) 0.083% nebulizer solution USE 1 VIAL VIA NEBULIZER EVERY 8 HOURS NEEDED FOR WHEEZING OR SHORTNESS OF BREATH albuterol HFA 90 mcg/act inhaler 2 puffs, Inhalation, Every 6 hours PRN amitriptyline (ELAVIL) 10 mg, Oral, Nightly atorvastatin (LIPITOR) 40 mg, Oral, Every evening buPROPion XL (WELLBUTRIN XL) 300 mg, Oral, Every morning cetirizine ([employer] ALLERGY RELIEF(CETIRIZINE)) 10 mg, Oral, Every morning hyoscyamine (LEVSIN/SL) 0.125 mg, Oral, Every 6 hours PRN ibuprofen 600 mg, Every 12 hours PRN levothyroxine (SYNTHROID, LEVOXYL) 88 mcg, Oral, Daily before breakfast lisinopril 10 mg, Oral, Every morning metFORMIN (GLUCOPHAGE) 500 mg, Oral, 2 times daily with meals montelukast (SINGULAIR) 10 mg, Oral, Nightly omeprazole (PRILOSEC) 20 mg, Oral, Daily before breakfast, Do not crush or chew. ondansetron ODT (ZOFRAN-ODT) 4 mg, Oral, Every 8 hours PRN pimecrolimus (Elidel) 1 % cream Every 24 hours SUMAtriptan (IMITREX) 25 mg, Oral, As needed, May repeat dose once in 2 hours if no relief. Do not exceed 2 doses in 24 hours. tadalafil (Cialis) 5 MG tablet TAKE 1 TABLET DAILY FOR BPH AND ED. DO NOT EXCEED 20 MG DAILY tamsulosin (FLOMAX) 0.4 mg, Oral, Nightly ALLERGIES: Allergies Allergen Reactions Iodinated Contrast Media Anaphylaxis Hydrocodone GI intolerance Codeine GI intolerance Egg White (Egg Protein) Cough dairy, wheat, grains, peanuts, barley, Flu shot ok REVIEW OF SYMPTOMS: Review of Systems Constitutional: Positive for fatigue and fever. Negative for activity change, appetite change and unexpected weight change. HENT: Negative for ear pain, nosebleeds, sneezing, trouble swallowing and voice change. Eyes: Negative for pain, discharge and visual disturbance. Respiratory: Negative for apnea, chest tightness and wheezing. Cardiovascular: Negative for leg swelling. Gastrointestinal: Positive for diarrhea, nausea and vomiting. Negative for abdominal distention, bloating, blood in stool, constipation, dysphagia, hematochezia and jaundice. Genitourinary: Negative for decreased urine volume, difficulty urinating, dysuria and hematuria. Musculoskeletal: Positive for myalgias. Skin: Negative for color change. Neurological: Negative for dizziness, tremors and seizures. Psychiatric/Behavioral: Negative for agitation, decreased concentration, hallucinations, self-injury and suicidal ideas. The patient is not nervous/anxious. Hematological: Negative for adenopathy. Does not bruise/bleed easily. Endocrine: Negative for cold intolerance, heat intolerance, polydipsia and polyuria. Allergic/Immunologic: Negative for environmental allergies and food allergies. PAST MEDICAL HISTORY Past Medical History: Diagnosis Date ABPA (allergic bronchopulmonary aspergillosis) ([facility]) 11/09/2023 Asthma ([facility]) 11/09/2023 Erectile dysfunction 11/09/2023 Hyperlipidemia [place] 11/09/2023 Hypertension ([facility] Inguinal hernia 11/09/2023 Onychomycosis Pleurisy 11/09/2023 Pre-diabetes Thyroid trouble ([facility] Visual impairment 11/09/2023 Past Surgical History: Procedure Laterality Date CYST REMOVAL Fatty Cyst Removed ESOPHAGEAL ATRESIA REPAIR HERNIA REPAIR Inguinal OTHER SURGICAL HISTORY 2 fingers on right hand injured 2 broken ribs family history includes Atrial fibrillation in his mother; Cancer in his father; Hypertension in his father and mother. OBJECTIVE: Visit Vitals BP 110/80 (BP Location: Left arm, Patient Position: Sitting, BP Cuff Size: Adult long) Pulse 91 Temp 98.1 F (Temporal) Resp 21 Ht 5' 10 Wt 230 lb Comment: pt refuses to weigh in office he weighed himself at home before coming in today SpO2 98% BMI 33.00 kg/m Smoking Status Never BSA 2.27 m Physical Exam Vitals and nursing note reviewed. Constitutional: General: He is in acute distress. Appearance: Normal appearance. He is obese. He is not ill-appearing. HENT: Head: Normocephalic. Right Ear: Tympanic membrane, ear canal and external ear normal. Left Ear: Tympanic membrane, ear canal and external ear normal. Nose: Nose normal. No congestion. Mouth/Throat: Mouth: Mucous membranes are moist. Pharynx: Oropharynx is clear. No oropharyngeal exudate or posterior oropharyngeal erythema. Eyes: Extraocular Movements: Extraocular movements intact. Conjunctiva/sclera: Conjunctivae normal. Cardiovascular: Rate and Rhythm: Regular rhythm. Pulses: Normal pulses. Heart sounds: Normal heart sounds. Pulmonary: Effort: Pulmonary effort is normal. Breath sounds: Normal breath sounds. Abdominal: General: Bowel sounds are normal. Palpations: Abdomen is soft. Tenderness: There is no abdominal tenderness. There is no guarding. Musculoskeletal: Cervical back: Neck supple. Right lower leg: No edema. Left lower leg: No edema. Lymphadenopathy: Cervical: No cervical adenopathy. Skin: General: Skin is warm and dry. Capillary Refill: Capillary refill takes 2 to 3 seconds. Neurological: General: No focal deficit present. Mental Status: He is alert. Psychiatric: Mood and Affect: Mood normal. Behavior: Behavior normal. Thought Content: Thought content normal. Judgment: Judgment normal. ASSESSMENT AND PLAN: Follow up if symptoms worsen or fail to improve. Problem List Items Addressed This Visit Obesity (BMI 30-39.9) - Primary Gastroenteritis Fluids, rest Treat symptoms, check of COVID No signs of acute abd Relevant Medications ondansetron ODT (Zofran-ODT) 4 MG disintegrating tablet hyoscyamine (Levsin/SL) 0.125 MG SL tablet Other Relevant Orders Basic metabolic panel Nausea & vomiting Zofran prn 2 oz fluids, hourly as tolerated Advanced diet as tolerated documented in this encounter [facility] 08-26-2024 Instructions Sabine eVrde NP - 08/26/2024 5:00 PM EST Will test for COVID: [facility] faxed order to lab, due this 08/27/24 Check lab Meds for symptoms: ondansartan for nausea, hycosamine for abd cramping Fluids, bland foods documented in this encounter [facility] 07-17-2024 History of Present illness Narrative Associated Problem(s): Pleurisy Hx of collapsed lungs Hx of pnuemonia Associated Problem(s): Thoracic spine pain Possible cause of the pleuritic pain? Radiculopathy Associated Problem(s): Major depressive disorder with single episode, in partial remission (HCC) (CMS/HCC) Feels wellbutrin XL 300mg doing ok Associated Problem(s): Gastroesophageal reflux disease without esophagitis Freq small meals, avoid caffeine, aviod food and drink 2 hours prior to HS Stop pepcid, we will trial omeprazole Fu in 6 weeks Associated Problem(s): Hypertension (CMS/HCC) Please check blood pressure daily and record DASH diet Limit caffeine Take medication as directed Contact office if chest pain, pressure, dizziness, shortness of breath, swelling legs Recommend slow position changes Pt would like to get the prescription again of the pepcid 20mg tablet 90 day supply if can Pt needs a new refill order for the IBU 600 and maybe something a lil bit stronger Images from the original note were not included. Jay Chandler is a 68 y.o. male presents with chief complaint of No chief complaint on file. HPI: Chest pain: pleural lining usually posterior lateral bilat, has had for several years ago after having pneumonia. Three times a week, can happen with activity or without activity. Usually lasts for approx a few hours, sometimes half the day, sharp, can be short of breath d/t intensity, no cough. No wheezing. No hemoptysis. Last saw pulmonology in early to mid . Has not seen one since then. Has been seeing transition nurse as well. No thoracic spine tenderness. HTN: stable no chest pain/pressure GERD: increase in sxs no blood stools or emeisis, caffeine: 2 cups coffee SUBJECTIVE: MEDICATIONS: Current Outpatient Medications Medication Instructions albuterol (2.5 MG/3ML) 0.083% nebulizer solution USE 1 VIAL VIA NEBULIZER EVERY 8 HOURS NEEDED FOR WHEEZING OR SHORTNESS OF BREATH albuterol HFA 90 mcg/act inhaler 2 puffs, Inhalation, Every 6 hours PRN amitriptyline (ELAVIL) 10 mg, Oral, Nightly atorvastatin (LIPITOR) 40 mg, Oral, Every evening buPROPion XL (WELLBUTRIN XL) 300 mg, Oral, Every morning cetirizine ([employer] ALLERGY RELIEF(CETIRIZINE)) 10 mg, Oral, Every morning famotidine (PEPCID) 20 mg, Oral, 2 times daily hyoscyamine (LEVSIN/SL) 125 mcg, Sublingual, Every 6 hours PRN ibuprofen 600 mg, Every 12 hours PRN levothyroxine (SYNTHROID, LEVOXYL) 88 mcg, Oral, Daily before breakfast lisinopril 10 mg, Oral, Every morning metFORMIN (GLUCOPHAGE) 500 mg, Oral, 2 times daily with meals montelukast (SINGULAIR) 10 mg, Oral, Nightly pimecrolimus (Elidel) 1 % cream Every 24 hours SUMAtriptan (IMITREX) 25 mg, Oral, As needed, May repeat dose once in 2 hours if no relief. Do not exceed 2 doses in 24 hours. tadalafil (Cialis) 5 MG tablet TAKE 1 TABLET DAILY FOR BPH AND ED. DO NOT EXCEED 20 MG DAILY ALLERGIES: Allergies Allergen Reactions Iodinated Contrast Media Anaphylaxis Hydrocodone GI intolerance Codeine GI intolerance Egg White (Egg Protein) Cough dairy, wheat, grains, peanuts, barley, Flu shot ok REVIEW OF SYMPTOMS: Review of Systems Constitutional: Negative for activity change, appetite change and unexpected weight change. HENT: Negative for ear pain, nosebleeds, sneezing, trouble swallowing and voice change. Eyes: Negative for pain, discharge and visual disturbance. Respiratory: Negative for apnea, chest tightness and wheezing. Cardiovascular: Negative for leg swelling. Gastrointestinal: Negative for abdominal distention, blood in stool, constipation and diarrhea. Genitourinary: Negative for decreased urine volume, difficulty urinating, dysuria and hematuria. Musculoskeletal: Positive for back pain. Skin: Negative for color change. Neurological: Negative for dizziness, tremors and seizures. Psychiatric/Behavioral: Negative for agitation, decreased concentration, hallucinations, self-injury and suicidal ideas. The patient is not nervous/anxious. Depression Hematological: Negative for adenopathy. Does not bruise/bleed easily. Endocrine: Negative for cold intolerance, heat intolerance, polydipsia and polyuria. Allergic/Immunologic: Negative for environmental allergies and food allergies. PAST MEDICAL HISTORY Past Medical History: Diagnosis Date ABPA (allergic bronchopulmonary aspergillosis) ([facility]) 11/09/2023 Asthma ([facility]) 11/09/2023 Erectile dysfunction 11/09/2023 Hyperlipidemia ([facility]) 11/09/2023 Hypertension ([facility]) Inguinal hernia 11/09/2023 Onychomycosis Pleurisy 11/09/2023 Pre-diabetes Thyroid trouble [place] Visual impairment 11/09/2023 Past Surgical History: Procedure Laterality Date CYST REMOVAL Fatty Cyst Removed ESOPHAGEAL ATRESIA REPAIR HERNIA REPAIR Inguinal OTHER SURGICAL HISTORY 2 fingers on right hand injured 2 broken ribs family history includes Atrial fibrillation in his mother; Cancer in his father; Hypertension in his father and mother. OBJECTIVE: Visit Vitals BP 118/78 (BP Location: Left arm, Patient Position: Sitting, BP Cuff Size: Adult long) Pulse 89 Temp 98.8 F (Temporal) Resp 19 Ht 5' 10 Wt 235 lb SpO2 97% BMI 33.72 kg/m Smoking Status Never BSA 2.3 m Physical Exam Vitals and nursing note reviewed. Constitutional: Appearance: Normal appearance. HENT: Head: Normocephalic. Right Ear: External ear normal. Left Ear: External ear normal. Nose: Nose normal. Mouth/Throat: Mouth: Mucous membranes are moist. Pharynx: Oropharynx is clear. Eyes: Extraocular Movements: Extraocular movements intact. Conjunctiva/sclera: Conjunctivae normal. Neck: Vascular: No carotid bruit. Cardiovascular: Rate and Rhythm: Normal rate and regular rhythm. Pulses: Normal pulses. Heart sounds: Normal heart sounds. Pulmonary: Effort: Pulmonary effort is normal. Breath sounds: Normal breath sounds. No wheezing or rales. Abdominal: General: Bowel sounds are normal. There is no distension. Palpations: Abdomen is soft. There is no mass. Tenderness: There is no abdominal tenderness. Musculoskeletal: General: No tenderness. Cervical back: Neck supple. Right lower leg: No edema. Left lower leg: No edema. Lymphadenopathy: Cervical: No cervical adenopathy. Skin: General: Skin is warm and dry. Capillary Refill: Capillary refill takes 2 to 3 seconds. Neurological: General: No focal deficit present. Mental Status: He is alert. Psychiatric: Mood and Affect: Mood normal. Behavior: Behavior normal. Thought Content: Thought content normal. Judgment: Judgment normal. ASSESSMENT AND PLAN: No follow-ups on file. Problem List Items Addressed This Visit Major depressive disorder with single episode, in partial remission (HCC) ([facility]) Feels wellbutrin XL 300mg doing ok Hypothyroidism (acquired) ([facility]) Hypertension ([facility]) Please check blood pressure daily and record DASH diet Limit caffeine Take medication as directed Contact office if chest pain, pressure, dizziness, shortness of breath, swelling legs Recommend slow position changes Pre-diabetes Obesity (BMI 30-39.9) Pleurisy Hx of collapsed lungs Hx of pnuemonia Relevant Orders XR chest 2 views RESOLVED: Gastroenteritis Encounter for wellness examination in adult - Primary Relevant Orders CBC and differential Comprehensive metabolic panel Urinalysis with reflex microscopic (clean catch) TSH T4, free Lipid panel Screening for prostate cancer Relevant Orders PSA Needs flu shot Relevant Orders Flu vaccine, trivalent, adjuvanted, PF ([id number]) (Fluad trivalent single dose syringe) Gastroesophageal reflux disease without esophagitis Freq small meals, avoid caffeine, aviod food and drink 2 hours prior to HS Stop pepcid, we will trial omeprazole Fu in 6 weeks Relevant Medications omeprazole (PriLOSEC) [address] suarez Thoracic spine pain Possible cause of the pleuritic pain? Radiculopathy Relevant Orders XR thoracic spine 3 views Other Visit Diagnoses Allergic bronchopulmonary aspergillosis (CMS/HCC) documented in this encounter [facility] 11-07-2023 Note Chief Complaint consultation for colonoscopy [facility] Staff 67 year old male presents on [...] surveillance colonoscopy; patient had colonoscopy 12/2014 at [facility] with removal of 8 mm ascending colon polyp, pathology not available; recommend f/u colonoscopy in 3 years, had attempted colonoscopy in [place] in 2017, only got to distal descending colon; abd [...] Oral, qPM Trele (more content not included)... [facility] Comment on above: Result Comment: Elec tronically Signed By: JOSE ENRIQUE PAREDES, Jason Charles.[email or web address]\Date and Time Signed: 11/07/23 14:00 EST 10-12-2022 Hospital Discharge instructions Patient Education 10/12/2022 [...] urethra. Follow these instructions at home: Take [id number] and prescription medicines only as told by [...] 09/11/2006 Document Revised: 08/06/2019 Document Reviewed: 10/16/2017 [employer] Patient Education 2020 Thismoment. 10/12/2022 09:05:53 Erectile Dysfunction Erectile Dysfunction Erectile [...] Follow these instructions at home: Medicines Take [id number] and prescription medicines only as told by [...] 09/08/2001 Document Revised: 08/24/2018 Document Reviewed: 09/27/2017 [employer] Patient Education 2020 Thismoment. Follow Up Care 09/13/2022 14:25:31 With:Julissa Alvarado MD, YVROSE, URO Address: When: Unknown [facility] Evaluation + Plan note Future Appointments Appointment Date:12/14/2022 10:45:00 AM Scheduled Provider:Julissa Alvarado MD Location:[facility] Appointment Type:URO Office Visit [facility] Evaluation note Diagnosis MDD (major depressive disorder), single episode, in partial remission (HCC) (CMS/HCC)- Primary Screening for prostate cancer Special screening for malignant neoplasm of prostate Mixed hyperlipidemia (CMS/HCC) Mixed hyperlipidemia Hypothyroidism (acquired) (CMS/HCC) Unspecified hypothyroidism Primary hypertension ([facility]) Unspecified essential hypertension Seasonal allergies Allergic rhinitis, cause unspecified Pre-diabetes Other abnormal glucose Dermatitis Contact dermatitis and other eczema, due to unspecified cause Major depressive disorder with single episode, in partial remission (HCC) ([facility]) Obesity (BMI 30-39.9)- Primary Asthmatic bronchitis with acute exacerbation, unspecified asthma severity, unspecified whether persistent ([facility]) Screening for colon cancer Special screening for malignant neoplasms, colon Asthmatic bronchitis with acute exacerbation, unspecified asthma severity, unspecified whether persistent ([facility])- Primary Primary hypertension ([facility]) Unspecified essential hypertension History of colonic polyps Personal history of colonic polyps Major depressive disorder with single episode, in partial remission (HCC) ([facility]) Obesity (BMI 30-39.9) Hypothyroidism (acquired) ([facility])- Primary Unspecified hypothyroidism Allergic bronchopulmonary aspergillosis ([facility]) Allergic bronchopulmonary aspergillosis Primary hypertension ([facility]) Unspecified essential hypertension Obesity (BMI 30-39.9) Mild intermittent asthma without complication ([facility]) Primary hypertension ([facility])- Primary Unspecified essential hypertension Allergic bronchopulmonary aspergillosis ([facility]) Allergic bronchopulmonary aspergillosis Encounter for wellness examination in adult Screening for prostate cancer Special screening for malignant neoplasm of prostate Needs flu shot Need for prophylactic vaccination and inoculation against influenza Pleurisy Pleurisy without mention of effusion or current tuberculosis Gastroenteritis Other and unspecified noninfectious gastroenteritis and colitis Gastroesophageal reflux disease without esophagitis Esophageal reflux Obesity (BMI 30-39.9) Hypothyroidism (acquired) ([facility]) Unspecified hypothyroidism Pre-diabetes Other abnormal glucose Major depressive disorder with single episode, in partial remission (HCC) ([facility]) Thoracic spine pain Pain in thoracic spine documented in this encounter [facility]* Diagnosis MDD (major depressive disorder), single episode, in partial remission (HCC) ([facility])- Primary Screening for prostate cancer Special screening for malignant neoplasm of prostate Mixed hyperlipidemia ([facility]) Mixed hyperlipidemia Hypothyroidism (acquired) ([facility]) Unspecified hypothyroidism Primary hypertension ([facility]) Unspecified essential hypertension Seasonal allergies Allergic rhinitis, cause unspecified Pre-diabetes Other abnormal glucose Dermatitis Contact dermatitis and other eczema, due to unspecified cause Major depressive disorder with single episode, in partial remission (HCC) ([facility]) Obesity (BMI 30-39.9)- Primary Asthmatic bronchitis with acute exacerbation, unspecified asthma severity, unspecified whether persistent ([facility]) Screening for colon cancer Special screening for malignant neoplasms, colon Asthmatic bronchitis with acute exacerbation, unspecified asthma severity, unspecified whether persistent ([facility])- Primary Primary hypertension ([facility]) Unspecified essential hypertension History of colonic polyps Personal history of colonic polyps Major depressive disorder with single episode, in partial remission (HCC) ([facility]) Obesity (BMI 30-39.9) Gastroenteritis- Primary Other and unspecified noninfectious gastroenteritis and colitis Obesity (BMI 30-39.9) Hypothyroidism (acquired) ([facility])- Primary Unspecified hypothyroidism Allergic bronchopulmonary aspergillosis ([facility]) Allergic bronchopulmonary aspergillosis Primary hypertension ([facility]) Unspecified essential hypertension Obesity (BMI 30-39.9) Mild intermittent asthma without complication ([facility]) Primary hypertension ([facility])- Primary Unspecified essential hypertension Allergic bronchopulmonary aspergillosis ([facility]) Allergic bronchopulmonary aspergillosis Encounter for wellness examination in adult Screening for prostate cancer Special screening for malignant neoplasm of prostate Needs flu shot Need for prophylactic vaccination and inoculation against influenza Pleurisy Pleurisy without mention of effusion or current tuberculosis Gastroenteritis Other and unspecified noninfectious gastroenteritis and colitis Gastroesophageal reflux disease without esophagitis Esophageal reflux Obesity (BMI 30-39.9) Hypothyroidism (acquired) ([facility]) Unspecified hypothyroidism Pre-diabetes Other abnormal glucose Major depressive disorder with single episode, in partial remission (HCC) ([facility]) Thoracic spine pain Pain in thoracic spine BPH with urinary obstruction Hypertrophy of prostate with urinary obstruction and other lower urinary tract symptoms (LUTS) Nausea and vomiting, unspecified vomiting type- Primary Obesity (BMI 30-39.9) Gastroenteritis Other and unspecified noninfectious gastroenteritis and colitis documented in this encounter [facility]* Diagnosis MDD (major depressive disorder), single episode, in partial remission (HCC) ([facility])- Primary Screening for prostate cancer Special screening for malignant neoplasm of prostate Mixed hyperlipidemia ([facility]) Mixed hyperlipidemia Hypothyroidism (acquired) ([facility]) Unspecified hypothyroidism Primary hypertension ([facility]) Unspecified essential hypertension Seasonal allergies Allergic rhinitis, cause unspecified Pre-diabetes Other abnormal glucose Dermatitis Contact dermatitis and other eczema, due to unspecified cause Major depressive disorder with single episode, in partial remission (HCC) ([facility]) Obesity (BMI 30-39.9)- Primary Asthmatic bronchitis with acute exacerbation, unspecified asthma severity, unspecified whether persistent ([facility]) Screening for colon cancer Special screening for malignant neoplasms, colon Asthmatic bronchitis with acute exacerbation, unspecified asthma severity, unspecified whether persistent (CMS/HCC)- Primary Primary hypertension ([facility]) Unspecified essential hypertension History of colonic polyps Personal history of colonic polyps Major depressive disorder with single episode, in partial remission (HCC) ([facility]) Obesity (BMI 30-39.9) Gastroenteritis- Primary Other and unspecified noninfectious gastroenteritis and colitis Obesity (BMI 30-39.9) Hypothyroidism (acquired) ([facility])- Primary Unspecified hypothyroidism Allergic bronchopulmonary aspergillosis ([facility]) Allergic bronchopulmonary aspergillosis Primary hypertension ([facility]) Unspecified essential hypertension Obesity (BMI 30-39.9) Mild intermittent asthma without complication ([facility]) Primary hypertension ([facility])- Primary Unspecified essential hypertension Allergic bronchopulmonary aspergillosis ([facility]) Allergic bronchopulmonary aspergillosis Encounter for wellness examination in adult Screening for prostate cancer Special screening for malignant neoplasm of prostate Needs flu shot Need for prophylactic vaccination and inoculation against influenza Pleurisy Pleurisy without mention of effusion or current tuberculosis Gastroenteritis Other and unspecified noninfectious gastroenteritis and colitis Gastroesophageal reflux disease without esophagitis Esophageal reflux Obesity (BMI 30-39.9) Hypothyroidism (acquired) ([facility]) Unspecified hypothyroidism Pre-diabetes Other abnormal glucose Major depressive disorder with single episode, in partial remission (HCC) ([facility]) Thoracic spine pain Pain in thoracic spine BPH with urinary obstruction Hypertrophy of prostate with urinary obstruction and other lower urinary tract symptoms (LUTS) Nausea and vomiting, unspecified vomiting type- Primary Obesity (BMI 30-39.9) Gastroenteritis Other and unspecified noninfectious gastroenteritis and colitis Nausea and vomiting, unspecified vomiting type- Primary RUQ pain Abdominal pain, right upper quadrant Elevated serum glucose documented in this encounter [facility]* Diagnosis MDD (major depressive disorder), single episode, in partial remission (HCC) ([facility])- Primary Screening for prostate cancer Special screening for malignant neoplasm of prostate Mixed hyperlipidemia (CMS/HCC) Mixed hyperlipidemia Hypothyroidism (acquired) ([facility]) Unspecified hypothyroidism Primary hypertension ([facility]) Unspecified essential hypertension Seasonal allergies Allergic rhinitis, cause unspecified Pre-diabetes Other abnormal glucose Dermatitis Contact dermatitis and other eczema, due to unspecified cause Major depressive disorder with single episode, in partial remission (HCC) ([facility]) Obesity (BMI 30-39.9)- Primary Asthmatic bronchitis with acute exacerbation, unspecified asthma severity, unspecified whether persistent ([facility]) Screening for colon cancer Special screening for malignant neoplasms, colon Asthmatic bronchitis with acute exacerbation, unspecified asthma severity, unspecified whether persistent ([facility])- Primary Primary hypertension ([facility]) Unspecified essential hypertension History of colonic polyps Personal history of colonic polyps Major depressive disorder with single episode, in partial remission (HCC) ([facility]) Obesity (BMI 30-39.9) Gastroenteritis- Primary Other and unspecified noninfectious gastroenteritis and colitis Obesity (BMI 30-39.9) Hypothyroidism (acquired) ([facility])- Primary Unspecified hypothyroidism Allergic bronchopulmonary aspergillosis ([facility]) Allergic bronchopulmonary aspergillosis Primary hypertension ([facility]) Unspecified essential hypertension Obesity (BMI 30-39.9) Mild intermittent asthma without complication ([facility]) Primary hypertension ([facility])- Primary Unspecified essential hypertension Allergic bronchopulmonary aspergillosis ([facility]) Allergic bronchopulmonary aspergillosis Encounter for wellness examination in adult Screening for prostate cancer Special screening for malignant neoplasm of prostate Needs flu shot Need for prophylactic vaccination and inoculation against influenza Pleurisy Pleurisy without mention of effusion or current tuberculosis Gastroenteritis Other and unspecified noninfectious gastroenteritis and colitis Gastroesophageal reflux disease without esophagitis Esophageal reflux Obesity (BMI 30-39.9) Hypothyroidism (acquired) ([facility]) Unspecified hypothyroidism Pre-diabetes Other abnormal glucose Major depressive disorder with single episode, in partial remission (HCC) ([facility]) Thoracic spine pain Pain in thoracic spine BPH with urinary obstruction Hypertrophy of prostate with urinary obstruction and other lower urinary tract symptoms (LUTS) Nausea and vomiting, unspecified vomiting type- Primary Obesity (BMI 30-39.9) Gastroenteritis Other and unspecified noninfectious gastroenteritis and colitis Hypothyroidism (acquired) ([facility]) Unspecified hypothyroidism documented in this encounter [facility]* Diagnosis Mild intermittent asthma without complication ([facility])- Primary documented in this encounter [facility]* Diagnosis MDD (major depressive disorder), single episode, in partial remission (HCC) ([facility])- Primary Screening for prostate cancer Special screening for malignant neoplasm of prostate Mixed hyperlipidemia ([facility]) Mixed hyperlipidemia Hypothyroidism (acquired) ([facility]) Unspecified hypothyroidism Primary hypertension ([facility]) Unspecified essential hypertension Seasonal allergies Allergic rhinitis, cause unspecified Pre-diabetes Other abnormal glucose Dermatitis Contact dermatitis and other eczema, due to unspecified cause Major depressive disorder with single episode, in partial remission (HCC) ([facility] [facility]) Obesity (BMI 30-39.9)- Primary Asthmatic bronchitis with acute exacerbation, unspecified asthma severity, unspecified whether persistent ([facility]) Screening for colon cancer Special screening for malignant neoplasms, colon Asthmatic bronchitis with acute exacerbation, unspecified asthma severity, unspecified whether persistent ([facility])- Primary Primary hypertension ([facility]) Unspecified essential hypertension History of colonic polyps Personal history of colonic polyps Major depressive disorder with single episode, in partial remission (HCC) ([facility]) Obesity (BMI 30-39.9) Gastroenteritis- Primary Other and unspecified noninfectious gastroenteritis and colitis Obesity (BMI 30-39.9) Hypothyroidism (acquired) ([facility])- Primary Unspecified hypothyroidism Allergic bronchopulmonary aspergillosis ([facility]) Allergic bronchopulmonary aspergillosis Primary hypertension ([facility]) Unspecified essential hypertension Obesity (BMI 30-39.9) Mild intermittent asthma without complication ([facility]) Primary hypertension ([facility])- Primary Unspecified essential hypertension Allergic bronchopulmonary aspergillosis ([facility]) Allergic bronchopulmonary aspergillosis Encounter for wellness examination in adult Screening for prostate cancer Special screening for malignant neoplasm of prostate Needs flu shot Need for prophylactic vaccination and inoculation against influenza Pleurisy Pleurisy without mention of effusion or current tuberculosis Gastroenteritis Other and unspecified noninfectious gastroenteritis and colitis Gastroesophageal reflux disease without esophagitis Esophageal reflux Obesity (BMI 30-39.9) Hypothyroidism (acquired) ([facility]) Unspecified hypothyroidism Pre-diabetes Other abnormal glucose Major depressive disorder with single episode, in partial remission (HCC) ([facility]) Thoracic spine pain Pain in thoracic spine BPH with urinary obstruction Hypertrophy of prostate with urinary obstruction and other lower urinary tract symptoms (LUTS) Nausea and vomiting, unspecified vomiting type- Primary Obesity (BMI 30-39.9) Gastroenteritis Other and unspecified noninfectious gastroenteritis and colitis RUQ pain- Primary Abdominal pain, right upper quadrant Type 2 diabetes mellitus without complication, without long-term current use of insulin ([facility]) Kidney stone on right side documented in this encounter [facility] Narrative No data available for this section [facility] Hospital Discharge instructions No data available for this section General Surgery [facility] note No data available for this section [facility] Reason for Referral Referred by: Christiano PAREDES, Julissa Matthews No data available for this section Summary Purpose Family History No Family History Records Found Advance Directives No Advanced Directives Records FoundNo Advanced Directives Records Found Additional Source Comments Patient Care team informatio n (unrecognized section and content) Industrial Relations Specialist Relationship Specialty Start Date End Date Manohar Adorno MD [address] [place] [address] PCP - [facility] cliniq[facility]ly [facility] 05/26/22 09/24/99 UnallocatedDebora MD [address] [place] [address] PCP - General Family Medicine 07/17/24 Sabine Verde NP [address] [place] [address] Nurse Practitioner Family Medicine 08/23/23 Sabine Verde NP [address] [place] [address] Nurse Practitioner Family Medicine 11/16/23 Industrial Relations Specialist Relationship Specialty Start Date End Date Manohar Adorno MD [address] [place] [address] PCP - [facility] cliniq[facility] 05/26/22 09/24/99 Unallocated, Noms ProviderMD [address] [place] [address] PCP - General Family Medicine 07/17/24 Sabine Verde NP [address] [place] [address] Nurse Practitioner Family Medicine 08/23/23 Sabine Verde NP [address] [place] [address] Nurse Practitioner Family Medicine 11/16/23 Industrial Relations Specialist Relationship Specialty Start Date End Date Manohar Adorno MD [address] [place] [phone] PCP - General Family Medicine 11/16/23 07/16/24 Manohar Adorno MD [address] [place] [address] PCP - Medical [facility] 05/26/22 09/24/99 Unallocated, Noms ProviderMD [address] [place] [address] PCP - General Family Medicine 07/17/24 07/24/24 Manohar Adorno MD [address] [place] [phone] PCP - General Family Medicine 07/25/24 Sabine Verde NP [address] [place] [address] Nurse Practitioner Family Medicine 08/23/23 Sabine Verde NP [address] [place] [address] Nurse Practitioner Family Medicine 11/16/23 Industrial Relations Specialist Relationship Specialty Start Date End Date Manohar Adorno MD [address] [place] [phone] PCP - [facility] 05/26/22 09/24/99 Manohar Adorno MD [address] [place] [phone] PCP - General Family Medicine 07/25/24 Sabine Verde NP [address] [place] [address] Nurse Practitioner Family Medicine 08/23/23 Sabine Verde NP [address] [place] [address] Nurse Practitioner Family Medicine 11/16/23 Industrial Relations Specialist Relationship Specialty Start Date End Date Manohar Adorno MD [address] [place] [address] PCP - [facility] 05/26/22 09/24/99 Manohar Adorno MD [address] [place] [address] PCP - General Family Medicine 07/25/24 Sabine Verde NP [address] [place] [address] Nurse Practitioner Family Medicine 08/23/23 Sabine Verde NP [address] [place] [address] Nurse Practitioner Family Medicine 11/16/23 Industrial Relations Specialist Relationship Specialty Start Date End Date Manohar Adorno MD [address] [place] [address] PCP - [facility] 05/26/22 09/24/99 Manohar Adorno MD [address] [place] [address] PCP - General Family Medicine 07/25/24 Sabine Verde NP [address] [place] [address] Nurse Practitioner Family Medicine 08/23/23 Sabine Verde NP [address] [place] [address] Nurse Practitioner Family Medicine 11/16/23 Industrial Relations Specialist Relationship Specialty Start Date End Date Manohar Adorno MD [address] [place] [address] PCP - Medical [facility] 05/26/22 09/24/99 Manohar Adorno MD [address] [place] [address] PCP - General Family Medicine 07/25/24 Sabine Verde NP [address] [place] [address] Nurse Practitioner Family Medicine 08/23/23 Sabine Verde NP [address] [place] [address] Nurse Practitioner Family Medicine 11/16/23 Industrial Relations Specialist Relationship Specialty Start Date End Date Manohar Adorno MD [address] [place] [address] PCP - Medical [facility] 05/26/22 09/24/99 Manohar Adorno MD [address] [place] [address] PCP - General Family Medicine 07/25/24 Sabine Verde NP [address] [place] [address] Nurse Practitioner Family Medicine 08/23/23 Sabine Verde NP [address] [place] [address] Nurse Practitioner Family Medicine 11/16/23 Industrial Relations Specialist Relationship Specialty Start Date End Date Manohar Adorno MD [address] [place] [address] PCP - General Family Medicine 11/16/23 Manohar Adorno MD [address] [place] [address] PCP - Medical [facility] 05/26/22 09/24/99 Sabine Verde NP [address] [place] [address] Nurse Practitioner Family Medicine 08/23/23 Sabine Verde NP [address] [place] [address] Nurse Practitioner Family Medicine 11/16/23 Industrial Relations Specialist Relationship Specialty Start Date End Date Manohar Adorno MD [address] [place] [address] PCP - Medical [facility] 05/26/22 09/24/99 Manohar Adorno MD [address] [place] [address] PCP - General Family Medicine 07/25/24 Sabine Verde NP [address] [place] [address] Nurse Practitioner Family Medicine 08/23/23 Sabine Verde NP [address] [place] [address] Nurse Practitioner Family Medicine 11/16/23 (unrecognized sect ion and content) No Status Records FoundNo Status Records Found INFORMATION SOURCE (unrecogn ized section and content) DATE CREATED AUTHOR 12/12/2023 [facility] DATE CREATED AUTHOR KOFI VILLEGAS 08/28/2024 [facility] EPIC Reason for Visit (unrecogniz ed section and content) Reason Comments Med Refill Reason Comments Fever Diarrhea FOR RECORDS PERTAINING TO PATIENTS WHO ARE [...] BE BASED ON THE PRIMARY CLINICAL RECORDS. [facility]. provides no warranty or guarantee of the accuracy or completeness of information in this document.
== END 2024-09-21 17:17 | disposition home or self-care (01) ==
PROVIDERS: PCP Nurse Practitioner; Visit Provider Nurse Practitioner
DX: M54.6 Pain in thoracic spine (principal); R09.1 Pleurisy
CPT/HCPCS: 71046; 72072

== ENCOUNTER 2024-10-04 09:57 | Outpatient (OUT) | payer OTHER, SELFPAY ==
--- NOTE | 2024-10-04 | NM_ITS ---
The [address] [address] Patient Name: JULISA BATISTA MRN: [id number] date: 1955 Sex: M Assigned Patient Location: MD Current Patient Location: MD Accession/Order Number: [id number] Exam Date: 10/04/2024 10:15 Report Date: 10/04/2024 13:59 At the request of: SJ GUARDADO Procedure: MD hepatobiliary w pharm EXAMINATION: MD hepatobiliary w pharm HISTORY: RUQ PAIN COMPARISON: No relevant comparison available. TECHNIQUE: Radionuclide hepatobiliary imaging was performed after intravenous injection of 4.6 mCi Tc-99m AZAEL derivative with sequential acquisitions every 1 minute for one hour. Hepatobiliary imaging with gallbladder ejection fraction analysis was then performed with sequential imaging every 1 minute for 60 minutes following ingestion of 8 oz. Ensure Plus. FINDINGS: LIVER: Normal, prompt and uniform radiotracer uptake and clearing. BILIARY DUCTS: Normal radioisotopic biliary excretion. GALLBLADDER: Normal with no evidence of cystic duct obstruction. INTESTINE: Normal with no evidence of common biliary ductal obstruction. EJECTION FRACTION: 78 % within 60 minutes. (Normal EF > 38%). OTHER: Negative. MD/MD hepatobiliary w pharm IMPRESSION: 1. Normal nuclear medicine HIDA scan. Electronically authenticated by: NAVEED FOX Date: 10/04/2024 13:59
--- OUTSIDE RECORDS SUMMARY | 2024-10-04 10:16 | XMS_ITS | CCD ---
Author Organization [facility] Care Team Providers Care Yard Pilot Name Role Phone SABINE VERDE Primary Care Physician Julissa Alvarado Attending Unavailable Jason QUISPE Attending Unavailable Jason QUISPE Attending Unavailable SABINE VERDE Referring Unavailable Jason QUISPE Attending Unavailable Frankiehjasmyne BILLET INSPECTOR, Sabine Unavailable Ammon BILLET INSPECTOR, Sabine Unavailable Manohar Adorno MD Unavailable Unallocated , Noms Provider Primary Care Provi pily Manohar Adorno MD Primary Care Provider Unallocated , [facility]oms Provider Primary Care Provi pily Tila PAREDES, Manohar Primary Care Provider [phone] Manohar Adorno MD Primary Care Provider [phone] AMMON SABINE Attending Unavailable KELSEY ESTRADA Attending Unavailable AICHHOLZSABINE Attending Unavailable AICHHOLZ SABINE Attending Unavailable AICHHOLZ SABINE Attending Unavailable AICHHOLZ, SABINE Attending Unavailable AICHHOLZ, SABINE Attending Unavailable AICHHOLZ, SABINE Attending Unavailable Allergies Allergy Classification Reported Allergen(s) Allergy Type Date of Onset Reaction(s) Facility (18 sources) HYDROcodone; Translations: [hydrocodone] Drug Allergy 08-23-20 Gastrointestinal irritation (disorder), GI intolerance [facility] [place] (2 sources) iodinated radiocontrast dyes; Translations: [iodinated radiocontrast agents] Propensity to adverse reactions to drug Anaphylaxis (disorder) [facility] [place] (1 source) No Known Medication Allergies; Translations: [No Known Medication Allergies] Propensity to adverse reactions (disorder) [facility] Repository (15 sources) Codeine Drug Allergy 09-28-19 12 GI intolerance [facility] Work Phone: (15 sources) egg white (chicken) allergenic extract Drug Allergy 09-28-19 12 Cough [facility] (16 sources) Iodinated Contrast Media Drug Allergy 08-23-20 23 Anaphylaxis [facility] Medications Current Medications Medication Drug Class(es) Dates Sig (Normalized) Sig (Original) [id number] 200 actuat albuterol 0.09 mg/actuat metered dose inhaler (20 sources) beta2-Adrenergic Agonist Start: 05-13-2024 End: 10-31-2024 take 2 puff(s) by inhalation every six hours for wheezing albuterol HFA 90 mcg/act inhaler Indications: Mild intermittent asthma without complication (CMS/HCC) Inhale 2 puffs every 6 (six) hours if needed for wheezing or shortness of breath 18 g 1 10/01/2024 10/31/2024 Active Start: 04-29-2024 albuterol (2.5 MG/3ML) 0.083% [...] Ordered amitriptyline hydrochloride 10 mg oral tablet (17 sources) Tricyclic Antidepressant Start: 04-13-2024 End: 07-12-2024 [...] Status: Ordered atorvastatin 40 mg oral tablet (18 sources) HMG-CoA Reductase Inhibitor Start: 08-30-2024 End: [...] hydrochloride 300 mg extended release oral tablet (17 sources) Aminoketone Start: 08-30-2024 End: 11-28-2024 take [...] Ordered cetirizine hydrochloride 10 mg oral tablet (17 sources) Histamine-1 Receptor Antagonist Start: 04-02-2024 End: 12-22-2024 take 1 tablet by mouth in the morning cetirizine ([facility] Allergy [facility],Cetirizine,) 10 MG tablet Indications: Seasonal allergies Take 1 tablet (10 mg) by mouth in the morning. 90 tablet 1 09/23/2024 12/22/2024 Active Start: 10-19-2023 take 1 tablet by reese th once daily cetirizine 10 mg Tab 10 mg = 1 tab(s), Oral, Daily, Refills(s) 0 Start Date: 10/19/23 Status: Ordered hyoscyamine sulfate 0.125 mg sublingual tablet (18 sources) Start: 08-26-2024 End: 09-02-2024 take 1 [...] (Therapy completed) ibuprofen 600 mg oral tablet (17 sources) Nonsteroidal Anti-inflammatory Drug Start: 10-11-2022 ibuprofen 600 mg Tab Refills(s) 0 Start Date: 10/11/22 Status: Ordered ibuprofen 600 MG tablet Take 600 mg by mouth every 12 (twelve) hours if needed for mild pain. Active levothyroxine sodium 0.088 mg oral tablet (18 sources) l-Thyroxine Start: 09-01-2024 End: 03-08-2025 take 1 tablet by mouth before mealtime [...] Status: Ordered lisinopril 10 mg oral tablet (18 sources) Angiotensin Converting Enzyme Inhibitor Start: 04-13-2024 End: 12-22-2024 take 1 tablet by mouth in the morning lisinopril 10 MG tablet Indications: Primary hypertension (CMS/HCC) Take 1 tablet (10 mg) by mouth in the morning. 90 tablet 1 09/23/2024 12/22/2024 Active Start: 10-11-2022 take 1 tablet by reese th once daily lisinopril 10 mg Tab 10 mg = 1 tab(s), Oral, Daily, Refills(s) 0 Start Date: 10/11/22 Status: Ordered metFORMIN hydrochloride 500 mg oral tablet (18 sources) Biguanide Start: 08-30-2024 End: 11-28-2024 take [...] Status: Ordered montelukast 10 mg oral tablet (18 sources) Leukotriene Receptor Antagonist Start: 04-13-2024 End: 12-22-2024 take 1 tablet by mouth at bedtime montelukast (Singulair) 10 MG tablet Indications: Seasonal allergies Take 1 tablet (10 mg) by mouth at bedtime 90 tablet 1 09/23/2024 12/22/2024 Active Start: 10-11-2022 take 1 tablet by reese th once daily in the evening montelukast 10 mg Tab 10 mg = 1 tab(s), Oral, qPM, Refills(s) 0 Start Date: 10/11/22 Status: Ordered omeprazole 20 mg delayed release oral capsule (15 sources) Proton Pump Inhibitor Start: 07-17-2024 End: [...] 09/02/2024 Active pimecrolimus 10 mg/ml topical cream (16 sources) Calcineurin Inhibitor Immunosuppressant Start: 10-11-2022 pimecrolimus (Elidel) 1 % cream 1 (one) time each day at the same time 10/11/2022 Active predniSONE 20 mg oral tablet (2 sources) Start: 09-23-2024 End: 09-28-2024 take 1 tablet by mouth in the morning predniSONE (Deltasone) 20 MG tablet Indications: Asthmatic bronchitis with acute exacerbation, unspecified asthma severity, unspecified whether persistent (CMS/HCC) Take 1 tablet (20 mg) by mouth in the morning and 1 tablet (20 mg) before bedtime. Do all this for 5 days. 10 tablet 09/23/2024 09/28/2024 Active SUMAtriptan 25 mg oral tablet (17 sources) Serotonin-1b and Serotonin-1d Receptor Agonist Start: [...] hours. Active tadalafil 5 mg oral tablet (20 sources) Phosphodiesterase 5 Inhibitor Start: 10-12-2022 take 1 tablet by mouth once daily, then take 1 tablet by mouth once daily, then take 4 tablets by mouth once daily Cialis 5 mg oral tablet 5 mg = 1 tab(s), Oral, Daily, Take 5mg daily for BPH and ED. Do not exceed 20mg/day total, # 30 tab(s), Refills(s) 6, Pharmacy: [facility]/pharmacy #[id number], 178, cm, 10/12/22 9:09:00 [...] 20mg/day, # 30 tab(s), Refills(s) 3, Pharmacy: [facility]/pharmacy #[id number], 178, cm, 10/12/22 9:09:00 EST, Height/Length Dosing, 97.5, kg, 10/12/22 9:09:00 EST, Weight Dosing Start Date: 10/12/22 Status: Ordered tamsulosin hydrochloride 0.4 mg oral capsule (11 sources) alpha-Adrenergic Anne-Marie Start: 07-18-2024 End: 10-16-2024 [...] Problem Date Documented Date Episodic/Chronic Abdominal pain (11 sources) Right upper quadrant pain; Translations: [Right upper quadrant pain] Onset: 08-27-2024 08-27-2024 Episodic Allergic reactions (20 sources) Allergic bronchopulmonary aspergillosis; 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] Onset: 11-09-2023 11-09-2023 Chronic Asthma (20 sources) Asthma; Translations: [Asthmatic bronchitis] Onset: 09-28-2023 10-07-2022 Chronic Blindness and vision defects (16 sources) Visual impairment; Translations: [Unspecified visual loss] Onset: 11-09-2023 11-09-2023 Chronic Calculus of urinary tract (6 sources) Kidney stone; Translations: [Calculus of kidney] Onset: 09-13-2024 09-13-2024 Episodic Diabetes mellitus without complication (6 sources) Type 2 diabetes mellitus without complication; Translations: [Type 2 diabetes mellitus without complications] Onset: 09-13-2024 09-13-2024 Chronic Disorders of lipid metabolism (17 sources) Hyperlipidemia; Translations: [Hyperlipidemia, unspecified] Onset: 11-09-2023 10-19-2023 Chronic Diverticulosis and diverticulitis (17 sources) Diverticular disease; Translations: [Diverticulosis of intestine, part unspecified, without perforation or abscess without bleeding] Onset: 11-09-2023 10-19-2023 Chronic Esophageal disorders (16 sources) Gastroesophageal reflux disease without esophagitis; Translations: [Gastro-esophageal reflux disease without esophagitis] Onset: 07-17-2024 07-17-2024 Chronic Essential hypertension (20 sources) Hypertensive disorder; Translations: [Essential (primary) hypertension] Onset: 08-23-2023 10-07-2022 Chronic Hyperplasia of prostate (19 sources) Benign prostatic hypertrophy with outflow obstruction; Translations: [Benign prostatic hyperplasia with lower urinary tract symptoms] Onset: 10-12-2022 Chronic Immunizations and screening for infectious disease (16 sources) Needs influenza immunization; Translations: [Encounter for immunization] Onset: 07-17-2024 07-17-2024 Episodic Mood disorders (20 sources) Depressive disorder; Translations: [Major depression single episode, in partial remission] Onset: 08-23-2023 10-19-2023 Chronic Nausea and vomiting (13 sources) Nausea and vomiting; Translations: [Nausea with vomiting, unspecified] Onset: 08-26-2024 08-26-2024 Episodic Other male genital disorders (19 sources) Male erectile dysfunction, unspecified; Translations: [Erectile [...] skin disorders (2 sources) Eruption 10-07-2022 Episodic Other upper respiratory disease (1 source) Seasonal allergy; Translations: [Other seasonal allergic rhinitis] 09-23-2024 Chronic Other upper respiratory infections (2 sources) Acute upper respiratory infection; Translations: [Acute upper respiratory infection, unspecified] Onset: 09-24-2024 09-24-2024 Episodic Spondylosis; intervertebral disc disorders; other back problems (16 sources) Pain in thoracic spine; Translations: [Pain in thoracic spine] Onset: 07-17-2024 07-17-2024 Episodic Thyroid disorders (20 sources) Hypothyroidism; Translations: [Acquired hypothyroidism] Onset: 08-23-2023 10-07-2022 Chronic Past or Other Problems Problem Classification Problem Date Documented Date Episodic/Chronic Abdominal hernia (16 sources) Inguinal hernia; Translations: [Unilateral inguinal hernia, without obstruction or gangrene, not specified as recurrent] Onset: 11-09-2023 11-09-2023 Episodic Allergic reactions (16 sources) Inflammatory dermatosis; Translations: [Dermatitis, unspecified] Onset: 10-10-2023 10-10-2023 Episodic Chronic obstructive pulmonary disease and bronchiectasis (16 sources) Bronchitis; Translations: [Bronchitis, not specified as acute or chronic] Onset: 12-21-2023 12-21-2023 Episodic Diabetes mellitus without complication (20 sources) Prediabetes; Translations: [Prediabetes] Onset: 08-23-2023 Resolved: 09-13-2024 10-19-2023 Episodic Mycoses (16 sources) Onychomycosis; Translations: [Tinea unguium] Onset: 09-12-2023 09-12-2023 Episodic Noninfectious gastroenteritis (20 sources) Gastroenteritis; Translations: [Noninfective gastroenteritis and colitis, unspecified] Onset: 01-25-2024 Resolved: 07-17-2024 01-25-2024 Episodic Other and unspecified benign neoplasm (19 sources) History of polyp of colon; Translations: [Personal history of colonic polyps] Onset: 11-07-2023 Episodic Pleurisy; pneumothorax; pulmonary collapse (18 sources) Pleurisy; Translations: [Pleurisy] Onset: 11-09-2023 11-09-2023 Episodic Viral infection (16 sources) Disease caused by 2019-nCoV; Translations: [COVID-19] Onset: 12-05-2023 12-05-2023 Episodic Results Test Name Value Interpretation Reference Range Facil ity ALL CBC WITH AUTO DIFFon BASOPHILS ABSOLUTE AUTO 0.1 [facility] Basophils/100 WBC (Bld) 1.1 % 0.2 - 2.0 % [facility] Eosinophils/100 WBC (Bld) 5.8 % 0.9 - 7.0 % [facility] Erythrocyte distribution width (RBC) [Ratio] 12.7 % 11.0 - 15.0 % [facility] Hematocrit (Bld) [Volume fraction] 44.8 % 42.0 - 54.0 % [facility] Hemoglobin (Bld) [Mass/Vol] 14.7 g/dL 14.0 - 18.0 g/dL [facility] IMMATURE GRANULOCYTES ABS AUTO 0.03 [facility] Immature granulocytes/100 WBC (Bld) 0.5 % 0.0 - 0.5 % [facility] LYMPHOCYTES ABSOLUTE AUTO 1.5 [facility] Lymphocytes/100 WBC (Bld) 23.3 % 20.5 - 60.0 % [facility] MCH (RBC) [Entitic mass] 28.8 pg 25.9 - 34.0 pg [facility] MCHC (RBC) [Mass/Vol] 32.8 g/dL 29.9 - 35.2 g/dL [facility] MCV (RBC) [Entitic vol] 87.8 fL 80.0 - 94.0 fL [facility] MONOCYTES ABSOLUTE AUTO 0.7 [facility] Monocytes/100 WBC (Bld) 10.9 % 1.7 - 12.0 % [facility] NEUTROPHILS ABSOLUTE AUTO 3.8 [facility] Neutrophils/100 WBC (Bld) 58.4 % 43.0 - 75.0 % [facility] Platelet mean volume (Bld) [Entitic vol] 10.7 fL 9.5 - 13.5 [facility] # [facility].4 [facility] TB PLT 322 [facility] RBC 5.1 [facility] TB WBC 6.5 [facility] SARS-COV-2 AG*on 08-27-2024 SARS-CoV-2 (COVID-19) RNA ELSA+probe Ql (Unsp spec) Negative NEGATIVE [facility] Comment on above: This test has not [...] is terminated or authorization is revoked sooner. [facility] Pathology Noteon 12-11-2023 Pathology Note [id number]#1.00TIFF Normal [facility] Pathology Noteon 12-07-2023 Pathology Note [id number] 48#1.00TIFF [facility] Reminderson 12-07-2023 Reminders -- From: Zahida San LPN To: N - Clinical; Sent: 12/07/2023 09:18:33 EDT Show up: 10/22/2028 07:00:00 EST Subject: colonoscopy recall Due Date/Time: 11/22/2028 07:00:00 EST Reminder/Recall Patient due for surveillance colonoscopy 11/22/2028 due to history of tubular adenoma. Normal [facility] Outside Colonoscopyon 2023 Outside Colonoscopy [id number] 63#1.00TIFF [facility] Lab Reportson 11-22-2023 Lab Reports [id number] 84#1.00TIFF [facility] Consent for Procedure/Surger yon 11-08-2023 Consent for Procedure/Surgery [id number] 74#1.00TIFF [facility] Ambulatory Visit Summaryon 0 11-07-2023 Ambulatory Visit Summary JAY CHANDLER :1955 Visit Date:11/07/2023 Ambulatory Visit Instructions Your Diagnosis Personal history of colonic polyps Your Care Team Attending Physician - JOSE ENRIQUE PAREDES, Jason Dill Primary Care Physician - SABINE VERDE CNP [...] you for choosing us for your care. [facility] Consultation Noteon 10-05-19 24 Consultation Note [id number] 5C#1.00TIFF [facility] Physician Referralon 024 Physician Referral [id number] 87#1.00TIFF [facility] Physician Referralon 024 Physician Referral [id number] 0B#1.00TIFF [facility] Vital Signs Date Time Vital Sign Value Performing Clinician Facility 09-23-2024 19:18-0500 Body height 177.8 cm Sabine Davidstanley BILLET INSPECTOR Work Phone: [facility] 09-23-2024 19:18-0500 Body mass index (BMI) [Ratio] 33.86 kg/m2 Sabine Frankieroslynz BILLET INSPECTOR Work Phone: [facility] 09-23-2024 19:18-0500 Body temperature 98.2 [degF] Sabine Yevgeniyz BILLET INSPECTOR Work Phone: [facility] 09-23-2024 19:18-0500 Body weight 107.05 kg Sabine Yevgeniyz BILLET INSPECTOR Work Phone: [facility] 09-23-2024 19:18-0500 Diastolic blood pressure 80 mm[Hg] Sabine Yevgeniyz BILLET INSPECTOR Work Phone: [facility] 09-23-2024 19:18-0500 Heart rate 95 /min Sabine Estelitaholz BILLET INSPECTOR Work Phone: [facility] 09-23-2024 19:18-0500 Respiratory rate 18 /min Sabine Yevgeniyz BILLET INSPECTOR Work Phone: [facility] 09-23-2024 19:18-0500 SaO2% (BldA) [Mass fraction] 97 % Sabine Yevgeniyz BILLET INSPECTOR Work Phone: [facility] 09-23-2024 19:18-0500 Systolic blood pressure 112 mm[Hg] Sabine Aichholz BILLET INSPECTOR Work Phone: [facility] 08-26-2024 17:06-0500 Body height 177.8 cm Sabine Frankiehholz BILLET INSPECTOR Work Phone: [facility] 08-26-2024 17:06-0500 Body mass index (BMI) [Ratio] 33 kg/m2 Sabine Caponecyrilz BILLET INSPECTOR Work Phone: [facility] 08-26-2024 17:06-0500 Body temperature 98.1 [degF] Sabine Caponecyrilz BILLET INSPECTOR Work Phone: [facility] 08-26-2024 17:06-0500 Body weight 104.33 kg Sabine Caponecyrilz BILLET INSPECTOR Work Phone: [facility] Comment on above: pt refuses to weigh in office he weighed himself at home before coming in today 08-26-2024 17:06-0500 Diastolic blood pressure 80 mm[Hg] Sabine Ammon BILLET INSPECTOR Work Phone: [facility] 08-26-2024 17:06-0500 Heart rate 91 /min Sabine Davidstanley BILLET INSPECTOR Work Phone: [facility] 08-26-2024 17:06-0500 Respiratory rate 21 /min Sabinemerle Caponecyrilz BILLET INSPECTOR Work Phone: [facility] 08-26-2024 17:06-0500 SaO2% (BldA) [Mass fraction] 98 % Sabine Caponecyrilz BILLET INSPECTOR Work Phone: [facility] 08-26-2024 17:06-0500 Systolic blood pressure 110 mm[Hg] Sabine Davidstanley BILLET INSPECTOR Work Phone: [facility] 07-17-2024 14:37-0400 Body height 177.8 cm Sabinemerle Davidroslynz BILLET INSPECTOR Work Phone: [facility] 07-17-2024 14:37-0400 Body mass index (BMI) [Ratio] 33.72 kg/m2 Sabinemerle Davidanaholz BILLET INSPECTOR Work Phone: [facility] 07-17-2024 14:37-0400 Body temperature 98.8 [degF] Sabine Yevgeniyz BILLET INSPECTOR Work Phone: [facility] 07-17-2024 14:37-0400 Body weight 106.59 kg Sabine Estelitaholz BILLET INSPECTOR Work Phone: [facility] 07-17-2024 14:37-0400 Diastolic blood pressure 78 mm[Hg] Sabine Caponeholz BILLET INSPECTOR Work Phone: [facility] 07-17-2024 14:37-0400 Heart rate 89 /min Sabinemerle Caponeholz BILLET INSPECTOR Work Phone: [facility] 07-17-2024 14:37-0400 Respiratory rate 19 /min Sabinemerle Vuongz BILLET INSPECTOR Work Phone: [facility] 07-17-2024 14:37-0400 SaO2% (BldA) [Mass fraction] 97 % Sabine Vuongz BILLET INSPECTOR Work Phone: [facility] 07-17-2024 14:37-0400 Systolic blood pressure 118 mm[Hg] Sabine Caponeholz BILLET INSPECTOR Work Phone: [facility] 11-07-2023 13:24-0500 Blood Pressure Location Jason NILL [facility] [place] 11-07-2023 13:24-0500 Diastolic blood pressure 86 mm[Hg] Jason NILL [facility] 11-07-2023 13:24-0500 Heart rate 76 /min Jason NILL [facility] 11-07-2023 13:24-0500 Respiratory rate 16 /min Jason NILL [facility] [place] 11-07-2023 13:24-0500 Systolic blood pressure 138 mm[Hg] Jason NILL [facility] [place] 10-12-2022 09:06-0500 Blood Pressure Location Julissa Alvarado [facility] 10-12-2022 09:06-0500 Diastolic blood pressure 76 mm[Hg] Julissa Lue [facility] 10-12-2022 09:06-0500 Heart rate 78 /min Julissa Alvarado [facility] 10-12-2022 09:06-0500 Respiratory rate 16 /min Julissa Alvarado [facility] 10-12-2022 09:06-0500 Systolic blood pressure 132 mm[Hg] Julissa Alvarado [facility] Encounters Encounter Date Encounter Type Care Provider Facility Start: 10-01-2024 End: 10-01-2024 Refill Sabine Verde NP Work Phone: [facility] Comment on above: Mild intermittent as thma without complication ([facility]) Start: 09-26-2024 End: 09-26-2024 Telephone encounter Sabine Verde NP Work Phone: [facility] Start: 09-23-2024 End: 09-23-2024 ambulatory SABINE VERDE Not Available Start: 09-23-2024 End: 09-23-2024 Office outpatient visit 25 minutes Sabine Verde BILLET INSPECTOR Work Phone: [facility] Comment on above: Asthmatic bronchitis with acute exacerbation, unspecified asthma severity, unspecified whether persistent ([facility]) (Primary Dx); RUQ pain; Type 2 diabetes mellitus without complication, without long-term current use of insulin ([facility]); Kidney stone on right side; Seasonal allergies; ABPA (allergic bronchopulmonary aspergillosis) ([facility]); Primary hypertension ([facility]); MDD (major depressive disorder), single episode, in partial remission ([facility]) ([facility]); Obesity (BMI 30-39.9) Start: 09-13-2024 End: 09-13-2024 Clinisync Result Encounter Sabine Verde NP Work Phone: [facility] External Department Unsolicited Start: 09-13-2024 End: 09-13-2024 Clinisync Result Encounter Sabine Aichholz BILLET INSPECTOR Work Phone: [facility] External Department Unsolicited Start: 09-13-2024 End: 09-13-2024 Orders Only Sabine Aichholz BILLET INSPECTOR Work Phone: [facility] Comment on above: RUQ pain (Primary Dx ); Type 2 diabetes mellitus without complication, without long-term current use of insulin ([facility]); Kidney stone on right side Start: 08-31-2024 End: 09-01-2024 Refill Sabine Aichholz BILLET INSPECTOR Work Phone: [facility] Comment on above: Hypothyroidism (acqu ired) ([facility]) Start: 08-27-2024 End: 08-27-2024 Clinisync Result Encounter Sabine Aichholz BILLET INSPECTOR Work Phone: [facility] External Department Unsolicited Start: 08-27-2024 End: 08-27-2024 Clinisync Result Encounter Sabine Aichholz BILLET INSPECTOR Work Phone: [facility] External Department Unsolicited Start: 08-27-2024 End: 08-27-2024 Orders Only Sabine Aichholz BILLET INSPECTOR Work Phone: [facility] Comment on above: Nausea and vomiting, unspecified vomiting type (Primary Dx); RUQ pain; Elevated serum glucose Start: 08-26-2024 End: 08-26-2024 ambulatory SABINE AICHHOLZ Not Available Start: 08-26-2024 End: 08-26-2024 Office outpatient visit 15 minutes Sabine Aichholz BILLET INSPECTOR Work Phone: [facility] Comment on above: Nausea and vomiting, unspecified vomiting type (Primary Dx); Obesity (BMI 30-39.9); Gastroenteritis Start: 08-26-2024 End: 08-26-2024 Bamboo flowsheet Sabine Aichholz BILLET INSPECTOR Work Phone: [facility] Start: 08-26-2024 End: 08-26-2024 Bamboo flowsheet Sabine Aichholz BILLET INSPECTOR Work Phone: [facility] Start: 07-17-2024 End: 07-17-2024 ambulatory SABINE AICHHOLZ Not Available Start: 07-17-2024 End: 07-17-2024 Office outpatient visit 25 minutes Sabine Verde BILLET INSPECTOR Work Phone: [facility] Comment on above: Primary hypertension (CMS/HCC) (Primary Dx); Allergic bronchopulmonary aspergillosis (CMS/HCC); Encounter for wellness examination in adult; Screening for prostate cancer; Needs flu shot; Pleurisy; Gastroenteritis; Gastroesophageal reflux disease without esophagitis; Obesity (BMI 30-39.9); Hypothyroidism (acquired) (CMS/HCC); Pre-diabetes; Major depressive disorder with single episode, in partial remission (HCC) (CMS/HCC); Thoracic spine pain Start: 07-17-2024 End: 07-17-2024 Bamboo flowsheet Sabine Verde BILLET INSPECTOR Work Phone: [facility] Start: 07-17-2024 End: 07-17-2024 Bamboo flowsheet Sabine Verde BILLET INSPECTOR Work Phone: [facility] Start: 07-17-2024 End: 07-17-2024 Patient encounter status Sabine Verde BILLET INSPECTOR Work Phone: [facility] Start: 05-13-2024 End: 08-11-2024 Refill Teofilo Coronado MD Work Phone: [facility] Start: 05-13-2024 End: 05-13-2024 Refill Sbaine Verde BILLET INSPECTOR Work Phone: [facility] Comment on above: Mild intermittent as thma without complication (CMS/HCC) (Primary Dx) Start: 03-18-2024 End: 03-18-2024 ambulatory SABINE AICHHOLZ Not Available Start: 01-25-2024 End: 01-25-2024 ambulatory SABINE AICHHOLZ Not Available Start: 12-05-2023 ambulatory Jason QUISPE Facility :[facility] Start: 11-22-2023 End: 2023 ambulatory Jason R NILL Facility:[facility] Start: 11-16-2023 End: 11-16-2023 ambulatory SABINE VERDE Not Available Start: 11-07-2023 End: 11-08-2023 ambulatory Jason R NILL Facility:[facility] Start: 11-07-2023 End: 11-07-2023 Patient encounter procedure Jason R NILL General Surgery [facility] [place] Start: 10-10-2023 End: 10-10-2023 ambulatory KELSEY ESTRADA Not Available Start: 09-29-2023 ambulatory Julissa Alvarado Facility:[facility] Start: 09-28-2023 End: 09-28-2023 ambulatory SABINE VERDE Not Available Start: 12-14-2022 ambulatory Julissa Alvarado Facility:[facility] Start: 10-12-2022 End: 10-12-2022 Patient encounter procedure Julissa Alvarado [facility] Procedures Date Procedure Procedure Detail Performing Clinician Start: 09-13-2024 ALL CBC WITH AUTO DIFF Sabine Verde BILLET INSPECTOR Work Phone: Start: 08-27-2024 SARS-COV-2 AG* Sabine David hholz BILLET INSPECTOR Work Phone: Start: 06-15-2018 Sigmoidoscopy Jason N ILL Start: 02-06-2015 Colonoscopy Sabine Estelitah olz BILLET INSPECTOR Work Phone: Start: 01-20-2015 Colonoscopy Jason NI LL Start: 09-25-2003 Primary repair of esophageal atresia Julissa Alvarado Colonoscopy Jason NILL Excision of lipoma Jason N ILL History of hernia repair Imani Alvarado Repair of inguinal hernia Mi chael NILL Plan of Treatment Date Care Activity Detail Author Start: 11-22-2028 Screening for malign ant neoplasm of colon [facility] Start: 12-12-2024 Hemoglobin A1c measurement Diabetes: Hemoglobin A1C [facility] Start: 10-28-2024 End: 10-28-2024 Patient encounter procedure 10/28/2024 5:30 PM EST Office Visit [facility] [address] [place] [address] Sabine Verde, PRIYA [address] [place] [phone] [facility] Start: 10-14-2024 End: 10-14-2024 Patient encounter procedure [facility] Start: 09-23-2024 End: 09-23-2024 Patient encounter procedure 09/23/2024 7:00 PM EST Office Visit [facility] [address] [place] [address] Sabine Verde, PRIYA [address] [place] [phone] [facility] Start: 09-13-2024 End: 09-13-2025 NM Gallbladder Views W cholecystokinin and W radionuclide IV NM hepatobiliary w cholecystokinin Imaging Routine RUQ pain Expected: 09/13/2024 (Approximate), Expires: 09/13/2025 [facility] Work Phone: Comment on above: Expected: 09/13/2024 (Approximate), Expires: 09/13/2025 Start: 09-13-2024 End: 09-13-2025 XR Abdomen Single view XR ABDOMEN 2 VIEW Imaging Routine Kidney stone on right side Expected: 09/13/2024, Expires: 09/13/2025 [facility] Comment on above: Expected: 09/13/2024 , Expires: 09/13/2025 Start: 09-12-2024 End: 09-12-2024 Patient encounter procedure 09/12/2024 2:40 PM EST Office Visit [facility] [address] [place] [phone] Sabine Verde, BILLET INSPECTOR [address] [place] [phone] [facility] Start: 08-27-2024 End: 08-27-2025 Hemoglobin A1c/Hemoglobin.total in Blood Hemoglobin A1c Lab Routine Elevated serum glucose Expected: 08/27/2024 (Approximate), Expires: 08/27/2025 [facility] Comment on above: Expected: 08/27/2024 (Approximate), Expires: 08/27/2025 Start: 08-27-2024 End: 08-27-2025 US Gallbladder US gallbladder Imaging Routine Nausea and vomiting, unspecified vomiting type RUQ pain Expected: 08/27/2024 (Approximate), Expires: 08/27/2025 [facility] Work Phone: Comment on above: Expected: 08/27/2024 (Approximate), Expires: 08/27/2025 Start: 08-26-2024 End: 08-26-2025 Basic metabolic 1998 panel - Serum or Plasma Basic metabolic panel Lab Routine Gastroenteritis Expected: 08/26/2024 (Approximate), Expires: 08/26/2025 [facility] Work Phone: Comment on above: Expected: 08/26/2024 (Approximate), Expires: 08/26/2025 Start: 07-17-2024 End: 07-17-2024 Patient encounter procedure 07/17/2024 2:20 PM EDT Office Visit [facility] [address] [place] [phone] Sabine Verde, PRIYA [address] [place] [phone] [facility] Start: 07-17-2024 End: 07-17-2025 CBC W Auto Differential panel - Blood CBC and differential Lab Routine Encounter for wellness examination in adult Expected: 07/17/2024 (Approximate), Expires: 07/17/2025 [facility] Work Phone: Comment on above: Expected: 07/17/2024 (Approximate), Expires: 07/17/2025 Start: 07-17-2024 End: 07-17-2025 Comprehensive metabolic 2000 panel - Serum or Plasma Comprehensive metabolic panel Lab Routine Encounter for wellness examination in adult Expected: 07/17/2024 (Approximate), Expires: 07/17/2025 [facility] Comment on above: Expected: 07/17/2024 (Approximate), Expires: 07/17/2025 Start: 07-17-2024 End: 07-17-2025 Lipid 1996 panel - Serum or Plasma Lipid panel Lab Routine Encounter for wellness examination in adult Expected: 07/17/2024 (Approximate), Expires: 07/17/2025 [facility] Comment on above: Expected: 07/17/2024 (Approximate), Expires: 07/17/2025 Start: 07-17-2024 End: 07-17-2025 Prostate specific Ag [Mass/volume] in Serum or Plasma PSA Lab Routine Screening for prostate cancer Expected: 07/17/2024 (Approximate), Expires: 07/17/2025 [facility] Comment on above: Expected: 07/17/2024 (Approximate), Expires: 07/17/2025 Start: 07-17-2024 End: 07-17-2025 Thyrotropin [Units/volume] in Serum or Plasma TSH Lab Routine Encounter for wellness examination in adult Expected: 07/17/2024 (Approximate), Expires: 07/17/2025 [facility] Comment on above: Expected: 07/17/2024 (Approximate), Expires: 07/17/2025 Start: 07-17-2024 End: 07-17-2025 Thyroxine (T4) free [Mass/volume] in Serum or Plasma T4, free Lab Routine Encounter for wellness examination in adult Expected: 07/17/2024 (Approximate), Expires: 07/17/2025 [facility] Comment on above: Expected: 07/17/2024 (Approximate), Expires: 07/17/2025 Start: 07-17-2024 End: 07-17-2025 Urinalysis complete panel - Urine Urinalysis with reflex microscopic (clean catch) Lab Routine Encounter for wellness examination in adult Expected: 07/17/2024 (Approximate), Expires: 07/17/2025 [facility] Comment on above: Expected: 07/17/2024 (Approximate), Expires: 07/17/2025 Start: 07-17-2024 End: 07-17-2025 XR Chest 2 Views XR chest 2 views Imaging Routine Pleurisy Expected: 07/17/2024 (Approximate), Expires: 07/17/2025 [facility] Comment on above: Expected: 07/17/2024 (Approximate), Expires: 07/17/2025 Start: 07-17-2024 End: 07-17-2025 XR Thoracic spine 3 Views XR thoracic spine 3 views Imaging Routine Thoracic spine pain Expected: 07/17/2024 (Approximate), Expires: 07/17/2025 [facility] Comment on above: Expected: 07/17/2024 (Approximate), Expires: 07/17/2025 Start: 05-26-2024 Influenza vaccination Influenza Vacc ine (#1) [facility] Start: 11-22-1974 Urine screening for protein Diabetes: Urine Protein Screening [facility] Start: 11-22-1965 Glaucoma screening Diabetes: R etinopathy Screening [facility] Start: 1955 Screening for malign ant neoplasm of colon [facility] Immunizations Immunization Date Immunization Notes Care Provider Fa cili 07-17-2024 Seasonal trivalent influenza vaccine, adjuvanted, preservative free Sabine Verde BILLET INSPECTOR Work Phone: [facility] 09-14-2023 SARS-CoV-2, Unspecified Sabine Verde BILLET INSPECTOR Work Phone: [facility] 08-30-2023 RSV, recombinant, protein subunit RSVpreF, adjuvant reconstitu, 120mcg/0.5mL, PF (Arexvy) Sabine Verde BILLET INSPECTOR Work Phone: [facility] 06-01-2023 influenza virus vaccine, unspecified formulation Jason QUISPE [facility] [place] 06-01-2023 Influenza, Seasonal, Quadrivalent, Adjuvanted Sabine Aichholz BILLET INSPECTOR Work Phone: [facility] 05-03-2023 SARS-CoV-2 (COVID-19 ) [id number].[id number] Jason QUISPE [facility] [place] 07-25-2022 influenza virus vaccine, unspecified formulation Julissa Lue [facility] 07-25-2022 Influenza, High-dose Seasonal, Quadrivalent, Preservative Free Sabine Aichholz BILLET INSPECTOR Work Phone: [facility] 07-25-2022 SARS-CoV-2 (COVID-19 ) mRNAMUL.[id number] Julissa Lue [facility] 07-07-2015 influenza virus vaccine, unspecified formulation Julissa Lue [facility] 07-07-2015 influenza, seasonal, injectable, preservative free Sabine Aichholz BILLET INSPECTOR Work Phone: [facility] 01-20-2015 tetanus toxoid, redu osman diphtheria toxoid, and acellular pertussis vaccine, adsorbed Julissa Lue [facility] 07-26-2014 influenza virus vaccine, unspecified formulation Julissa Lue [facility] 07-26-2014 influenza, seasonal, injectable Sabine Aichholz BILLET INSPECTOR Work Phone: [facility] Payers Date Payer Category Payer Private Health Insurance [employer] [id number] 2023 Unknown [employer] [id number] 2023-Present [address] [place] [address] [id number] 2022 Unknown [id number] 1955 Unknown [id number] 727 1955 Unknown [id number]. 727 1955 Unknown [id number]. 727 1955 Unknown [id number]. 727 1955 Unknown [id number]. 1259 1955 Unknown [id number]. 1259 1955 Unknown [id number]. 1259 1955 Unknown [id number] [id number]. 1259 1955 Unknown [id number]. 1259 1955 Unknown [id number] [id number]. 1259 1955 Unknown [id number]. 1259 1955 Unknown [id number] 1259 Social History Date Type Detail Facility Start: 10-12-2022 End: 11-07-2023 Tobacco smoking status Ex-smoker (finding) [facility] Tobacco smoking status Never [facility] Start: 11-02-2023 End: 03-18-2024 Sex Assigned At Male [facility] Start: 08-23-2023 Tobacco smoking stat [facility] Never smoked tobacco [facility] Start: 08-23-2023 Tobacco use and exposure Smoke less tobacco non-user [facility] Start: 03-18-2024 End: 09-23-2024 Alcoholic beverage intake Ex-drinker (finding) [facility] Start: 11-02-2023 End: 03-18-2024 History of Social function [facility] Within the last year , have you been afraid of your partner or ex-partner? No [facility] Do you belong to any clubs or organizations such as anabaptism groups, unions, fraternal or athletic groups, or [...] Not at all [facility] (I/We) worried jovon er (my/our) food would run out before (I/we) got money to buy more. Never true [facility] Start: 1955 Sex assigned at Not on file [facility] Functional Status Date Assessment Result Facility 11-07-2023 Functional Status N/A General Fofana jos[facility]ton[facility] [place] 10-12-2022 Functional Status N/A [facility] Clinical Notes 10-12-2022 to 09-26-2024 Telephone Encounter - Sabine Verde NP - 09/26/2024 4:56 PM ESTTelephone Encounter - Sabine Verde NP - 09/26/2024 4:56 PM Lidia Verde NP - 09/23/2024 11:09 PM ESTPatient Instructions Note Date & Type Note Facility 09-26-2024 Telephone encounter Note Check on patient to see if resp symptoms are better with steroids If anything has changed indicating the need for atb therapy [place] [facility] 09-26-2024 Miscellaneous Notes Check on patient to see if resp symptoms are better with steroids If anything has changed indicating the need for atb therapy LA documented in this encounter [facility] 09-23-2024 History of Present illness Narrative Associated Problem(s): Kidney stone on right side No current sxs, will check KUB Associated Problem(s): Hypertension ([facility]/HCC) No changes in med dose at this time Associated Problem(s): Asthmatic bronchitis with acute exacerbation ([facility]) At this point pt is wheezing expiratory, no inspiratory. Will hold on atb Start prednisone, check in in 2 days to see if better Associated Problem(s): ABPA (allergic bronchopulmonary aspergillosis) (CMS/HCC) Has had in the past Was on steroids in the past for this Pt has been having s/s since Monday. Pt did do a covid test yesterday and it was negative. Sinus pressure, headaches, sore throat, losing voice, plugged ears with pain Images from the original note were not included. Jay Chandler is a 68 y.o. male presents with chief complaint of No chief complaint on file. HPI: HPI SUBJECTIVE: MEDICATIONS: Current Outpatient Medications Medication Instructions albuterol (2.5 MG/3ML) 0.083% nebulizer solution USE 1 VIAL VIA NEBULIZER EVERY 8 HOURS NEEDED FOR WHEEZING OR SHORTNESS OF BREATH albuterol HFA 90 mcg/act inhaler 2 puffs, Inhalation, Every 6 hours PRN amitriptyline (ELAVIL) 10 mg, Oral, Nightly atorvastatin (LIPITOR) 40 mg, Oral, Nightly buPROPion XL (WELLBUTRIN XL) 300 mg, Oral, [...] before breakfast, Do not crush or chew. pimecrolimus (Elidel) 1 % cream Every 24 [...] ok REVIEW OF SYMPTOMS: Review of Systems PAST MEDICAL HISTORY Past Medical History: Diagnosis Date ABPA (allergic bronchopulmonary aspergillosis) [place] 11/09/2023 Asthma [place] 11/09/2023 Erectile dysfunction 11/09/2023 Hyperlipidemia ([facility] 11/09/2023 Hypertension [place] Inguinal hernia 11/09/2023 Onychomycosis Pleurisy 11/09/2023 Pre-diabetes Thyroid trouble ([facility] Visual impairment 11/09/2023 Past Surgical History: Procedure Laterality Date CYST REMOVAL Fatty Cyst Removed ESOPHAGEAL ATRESIA REPAIR HERNIA REPAIR Inguinal OTHER SURGICAL HISTORY 2 fingers on right hand injured 2 broken ribs family history includes Atrial fibrillation in his mother; Cancer in his father; Hypertension in his father and mother. OBJECTIVE: Visit Vitals BP 112/80 (BP Location: Left arm, Patient Position: Sitting, BP Cuff Size: Adult long) Pulse 95 Temp 98.2 F (Temporal) Resp 18 Ht 5' 10 Wt 236 lb SpO2 97% BMI 33.86 kg/m Smoking Status Never BSA 2.3 m Physical Exam ASSESSMENT AND PLAN: No follow-ups on file. Associated Problem(s): Type 2 diabetes mellitus without complication, without long-term current use of insulin ([facility] Check blood sugars daily, notify if <70 or >200. Take medications (pills or insulin) as directed. Monitor for s/s of hypoglycemia (sweaty, dizziness, nausea, vomiting, or shakiness). Watch for increase in thirst, urination, or appetite. Inspect feet frequently monitoring for open wounds , and also recommend yearly eye exam. Pt should attempt to remain as physically active as chronic conditions allow, as well as trying to follow a diet low in carbohydrates, and simple sugars. Current meds: statin, metfromin Most recent A1c: 6.6% 09/13/24 Associated Problem(s): RUQ pain Since last visit has had GBUS, HIDA was ordered and to date note done documented in this encounter [facility] 09-23-2024 Instructions Sabine Verde NP - 09/23/2024 7:00 PM EST Breathing: you can use the new dose of the spiriva respimat 2.5: 2 puffs once a day Steroids: prednisone 20mg twice a day for 5 days, if on 09/26/24 you are still consistently blowing out or coughing up colored sputum let me know Kidney stone: will check xray for kidneys Gallbladder: will check HIDA scan documented in this encounter [facility] 08-26-2024 History of Present illness Narrative Associated [...] History: Diagnosis Date ABPA (allergic bronchopulmonary aspergillosis) ([facility]) 11/09/2023 Asthma ([facility]) 11/09/2023 Erectile dysfunction 11/09/2023 Hyperlipidemia ([facility]) 11/09/2023 Hypertension ([facility]) Inguinal hernia 11/09/2023 Onychomycosis Pleurisy 11/09/2023 Pre-diabetes Thyroid trouble ([facility]) Visual impairment 11/09/2023 Past Surgical History: Procedure [...] diet as tolerated documented in this encounter [facility] 08-26-2024 Instructions Sabine Verde NP - 08/26/2024 5:00 PM EST Will test for COVID: [facility] faxed order to lab, due this 08/27/24 Check lab Meds for symptoms: ondansartan for nausea, hycosamine for abd cramping Fluids, bland foods documented in this encounter [facility] 07-17-2024 History of Present illness Narrative Associated Problem(s): Pleurisy Hx of collapsed lungs Hx of pnuemonia Associated Problem(s): Thoracic spine pain Possible cause of the pleuritic pain? Radiculopathy Associated Problem(s): Major depressive disorder with single episode, in partial remission (HCC) ([facility]/HCC) Feels wellbutrin XL 300mg doing ok Associated [...] seen one since then. Has been seeing strike warfare/missile systems officer as well. No thoracic spine tenderness. HTN: [...] History: Diagnosis Date ABPA (allergic bronchopulmonary aspergillosis) ([facility]) 11/09/2023 Asthma ([facility]) 11/09/2023 Erectile dysfunction 11/09/2023 Hyperlipidemia ([facility]) 11/09/2023 Hypertension (CMS/HCC) Inguinal hernia 11/09/2023 Onychomycosis Pleurisy 11/09/2023 Pre-diabetes Thyroid trouble (CMS/HCC) Visual impairment 11/09/2023 Past Surgical History: Procedure [...] (CMS/HCC) Feels wellbutrin XL 300mg doing ok Hypothyroidism (acquired) (CMS/HCC) Hypertension (CMS/HCC) Please check blood pressure daily [...] Relevant Orders Flu vaccine, trivalent, adjuvanted, PF ([id number]) (Fluad trivalent single dose syringe) Gastroesophageal reflux disease without esophagitis Freq small meals, avoid caffeine, aviod food and drink 2 hours prior to HS Stop pepcid, we will trial omeprazole Fu in 6 weeks Relevant Medications omeprazole (PriLOSEC) [address] capsule Thoracic spine pain Possible cause of the pleuritic pain? Radiculopathy Relevant Orders XR thoracic spine 3 views Other Visit Diagnoses Allergic bronchopulmonary aspergillosis ([facility]) documented in this encounter [facility] 11-07-2023 Note Chief Complaint consultation for colonoscopy [...] surveillance colonoscopy; patient had colonoscopy 12/2014 at [facility] with removal of 8 mm ascending colon polyp, pathology not available; recommend f/u colonoscopy in 3 years, had attempted colonoscopy in [place] in 2018, only got to distal descending [...] Oral, qPM Trele (more content not included)... [facility] Comment on above: Result Comment: Elec tronically Signed By: JOSE ENRIQUE PAREDES, Jason Bhakta\Date and Time Signed: 11/07/23 14:00 EST 10-12-2022 [...] urethra. Follow these instructions at home: Take bptu-fch-xelporb and prescription medicines only as told by [...] 09/11/2006 Document Revised: 08/06/2019 Document Reviewed: 10/16/2017 [employer] Patient Education 2020 [employer]. 10/12/2022 09:05:53 Erectile Dysfunction Erectile Dysfunction Erectile [...] Follow these instructions at home: Medicines Take ufjm-soj-apngqws and prescription medicines only as told by [...] 09/08/2001 Document Revised: 08/24/2018 Document Reviewed: 09/27/2017 [employer] Patient Education 2020 [employer] Follow Up Care 09/13/2022 14:25:31 With:Christiano PAREDES, Julissa Matthews, URL, URO Address: When: Unknown [facility] Evaluation + Plan note Future Appointments Appointment Date:12/14/2022 10:45:00 AM Scheduled Provider:Julissa Alvarado MD Location:[facility] Appointment Type:URO Office Visit [facility] Evaluation note Diagnosis MDD (major depressive disorder), single episode, in partial remission (HCC) ([facility])- Primary Screening for prostate cancer Special screening for malignant neoplasm of prostate Mixed hyperlipidemia (CMS/HCC) Mixed hyperlipidemia Hypothyroidism (acquired) ([facility]/HCC) Unspecified hypothyroidism Primary hypertension ([facility]/HCC) Unspecified essential hypertension Seasonal allergies Allergic rhinitis, cause unspecified Pre-diabetes Other abnormal glucose Dermatitis Contact dermatitis and other eczema, due to unspecified cause Major depressive disorder with single episode, in partial remission (HCC) ([facility]) Obesity (BMI 30-39.9)- Primary Asthmatic bronchitis with acute exacerbation, unspecified asthma severity, unspecified whether persistent ([facility]) Screening for colon cancer Special screening for malignant neoplasms, colon Asthmatic bronchitis with acute exacerbation, unspecified asthma severity, unspecified whether persistent (CMS/HCC)- Primary Primary hypertension ([facility]/HCC) Unspecified essential hypertension History of colonic polyps Personal history of colonic polyps Major depressive disorder with single episode, in partial remission (HCC) ([facility]/HCC) Obesity (BMI 30-39.9) Hypothyroidism (acquired) (CMS/HCC)- Primary Unspecified hypothyroidism 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 Primary hypertension (CMS/HCC) Unspecified essential hypertension Obesity (BMI 30-39.9) Mild intermittent asthma without complication (CMS/HCC) Primary hypertension (CMS/HCC)- Primary Unspecified essential hypertension 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 Encounter for wellness examination in adult Screening for prostate cancer Special screening for malignant neoplasm of prostate Needs flu shot Need for prophylactic vaccination and inoculation against influenza Pleurisy Pleurisy without mention of effusion or current tuberculosis Gastroenteritis Other and unspecified noninfectious gastroenteritis and colitis Gastroesophageal reflux disease without esophagitis Esophageal reflux Obesity (BMI 30-39.9) Hypothyroidism (acquired) ([facility]/HCC) Unspecified hypothyroidism Pre-diabetes Other abnormal glucose Major depressive disorder with single episode, in partial remission (HCC) ([facility]) Thoracic spine pain Pain in thoracic spine documented in this encounter [facility] HealthcareEvaluation note* Diagnosis MDD (major depressive disorder), single episode, in partial remission (HCC) ([facility])- Primary Screening for prostate cancer Special screening for malignant neoplasm of prostate Mixed hyperlipidemia ([facility]/HCC) Mixed hyperlipidemia Hypothyroidism (acquired) ([facility]) Unspecified hypothyroidism Primary hypertension ([facility]) Unspecified essential hypertension Seasonal allergies Allergic rhinitis, cause unspecified Pre-diabetes Other abnormal glucose Dermatitis Contact dermatitis and other eczema, due to unspecified cause Major depressive disorder with single episode, in partial remission (HCC) ([facility]) Obesity (BMI 30-39.9)- Primary Asthmatic bronchitis with acute exacerbation, unspecified asthma severity, unspecified whether persistent ([facility]) Screening for colon cancer Special screening for malignant neoplasms, colon Asthmatic bronchitis with acute exacerbation, unspecified asthma severity, unspecified whether persistent ([facility])- Primary Primary hypertension ([facility]) Unspecified essential hypertension History of colonic polyps Personal history of colonic polyps Major depressive disorder with single episode, in partial remission (HCC) ([facility]) Obesity (BMI 30-39.9) Gastroenteritis- Primary Other and unspecified noninfectious gastroenteritis and colitis Obesity (BMI 30-39.9) Hypothyroidism (acquired) ([facility])- Primary Unspecified hypothyroidism Allergic bronchopulmonary aspergillosis ([facility]/HCC) Allergic bronchopulmonary aspergillosis Primary hypertension ([facility]) Unspecified essential hypertension Obesity (BMI 30-39.9) Mild intermittent asthma without complication ([facility]/HCC) Primary hypertension ([facility])- Primary Unspecified essential hypertension Allergic bronchopulmonary aspergillosis ([facility]/HCC) Allergic bronchopulmonary aspergillosis Encounter for wellness examination in adult Screening for prostate cancer Special screening for malignant neoplasm of prostate Needs flu shot Need for prophylactic vaccination and inoculation against influenza Pleurisy Pleurisy without mention of effusion or current tuberculosis Gastroenteritis Other and unspecified noninfectious gastroenteritis and colitis Gastroesophageal reflux disease without esophagitis Esophageal reflux Obesity (BMI 30-39.9) Hypothyroidism (acquired) ([facility]/HCC) Unspecified hypothyroidism Pre-diabetes Other abnormal glucose Major depressive disorder with single episode, in partial remission (HCC) ([facility]) Thoracic spine pain Pain in thoracic spine BPH with urinary obstruction Hypertrophy of prostate with urinary obstruction and other lower urinary tract symptoms (LUTS) Nausea and vomiting, unspecified vomiting type- Primary Obesity (BMI 30-39.9) Gastroenteritis Other and unspecified noninfectious gastroenteritis and colitis documented in this encounter [facility] HealthcareEvaluation note* Diagnosis MDD (major depressive disorder), single episode, in partial remission (HCC) ([facility])- Primary Screening for prostate cancer Special screening for malignant neoplasm of prostate Mixed hyperlipidemia ([facility]) Mixed hyperlipidemia Hypothyroidism (acquired) ([facility]) Unspecified hypothyroidism Primary hypertension ([facility]) Unspecified essential hypertension Seasonal allergies Allergic rhinitis, cause unspecified Pre-diabetes Other abnormal glucose Dermatitis Contact dermatitis and other eczema, due to unspecified cause Major depressive disorder with single episode, in partial remission (HCC) ([facility]) Obesity (BMI 30-39.9)- Primary Asthmatic bronchitis with acute exacerbation, unspecified asthma severity, unspecified whether persistent ([facility]) Screening for colon cancer Special screening for malignant neoplasms, colon Asthmatic bronchitis with acute exacerbation, unspecified asthma severity, unspecified whether persistent ([facility])- Primary Primary hypertension ([facility]) Unspecified essential hypertension History of colonic polyps Personal history of colonic polyps Major depressive disorder with single episode, in partial remission (HCC) ([facility]) Obesity (BMI 30-39.9) Gastroenteritis- Primary Other and unspecified noninfectious gastroenteritis and colitis Obesity (BMI 30-39.9) Hypothyroidism (acquired) ([facility])- Primary Unspecified hypothyroidism Allergic bronchopulmonary aspergillosis ([facility]) Allergic bronchopulmonary aspergillosis Primary hypertension ([facility]) Unspecified essential hypertension Obesity (BMI 30-39.9) Mild intermittent asthma without complication ([facility]) Primary hypertension ([facility])- Primary Unspecified essential hypertension Allergic bronchopulmonary aspergillosis ([facility]) Allergic bronchopulmonary aspergillosis Encounter for wellness examination in adult Screening for prostate cancer Special screening for malignant neoplasm of prostate Needs flu shot Need for prophylactic vaccination and inoculation against influenza Pleurisy Pleurisy without mention of effusion or current tuberculosis Gastroenteritis Other and unspecified noninfectious gastroenteritis and colitis Gastroesophageal reflux disease without esophagitis Esophageal reflux Obesity (BMI 30-39.9) Hypothyroidism (acquired) ([facility]) Unspecified hypothyroidism Pre-diabetes Other abnormal glucose Major depressive disorder with single episode, in partial remission (HCC) ([facility]) Thoracic spine pain Pain in thoracic [...] Elevated serum glucose documented in this encounter [facility] HealthcareEvaluation note* Diagnosis MDD (major depressive disorder), single episode, in partial remission (HCC) ([facility])- Primary Screening for prostate cancer Special screening for malignant neoplasm of prostate Mixed hyperlipidemia ([facility]/HCC) Mixed hyperlipidemia Hypothyroidism (acquired) ([facility]) Unspecified hypothyroidism Primary hypertension ([facility]) Unspecified essential hypertension Seasonal allergies Allergic rhinitis, cause unspecified Pre-diabetes Other abnormal glucose Dermatitis Contact dermatitis and other eczema, due to unspecified cause Major depressive disorder with single episode, in partial remission (HCC) ([facility]) Obesity (BMI 30-39.9)- Primary Asthmatic bronchitis with acute exacerbation, unspecified asthma severity, unspecified whether persistent ([facility]) Screening for colon cancer Special screening for malignant neoplasms, colon Asthmatic bronchitis with acute exacerbation, unspecified asthma severity, unspecified whether persistent ([facility])- Primary Primary hypertension ([facility]) Unspecified essential hypertension History of colonic polyps Personal history of colonic polyps Major depressive disorder with single episode, in partial remission (HCC) ([facility]) Obesity (BMI 30-39.9) Gastroenteritis- Primary Other and unspecified noninfectious gastroenteritis and colitis Obesity (BMI 30-39.9) Hypothyroidism (acquired) ([facility])- Primary Unspecified hypothyroidism Allergic bronchopulmonary aspergillosis ([facility]) Allergic bronchopulmonary aspergillosis Primary hypertension ([facility]) Unspecified essential hypertension Obesity (BMI 30-39.9) Mild intermittent asthma without complication ([facility]) Primary hypertension ([facility])- Primary Unspecified essential hypertension Allergic bronchopulmonary aspergillosis ([facility]) Allergic bronchopulmonary aspergillosis Encounter for wellness examination in adult Screening for prostate cancer Special screening for malignant neoplasm of prostate Needs flu shot Need for prophylactic vaccination and inoculation against influenza Pleurisy Pleurisy without mention of effusion or current tuberculosis Gastroenteritis Other and unspecified noninfectious gastroenteritis and colitis Gastroesophageal reflux disease without esophagitis Esophageal reflux Obesity (BMI 30-39.9) Hypothyroidism (acquired) ([facility]/HCC) Unspecified hypothyroidism Pre-diabetes Other abnormal glucose Major depressive disorder with single episode, in partial remission (HCC) ([facility]) Thoracic spine pain Pain in thoracic spine BPH with urinary obstruction Hypertrophy of prostate with urinary obstruction and other lower urinary tract symptoms (LUTS) Nausea and vomiting, unspecified vomiting type- Primary Obesity (BMI 30-39.9) Gastroenteritis Other and unspecified noninfectious gastroenteritis and colitis Hypothyroidism (acquired) ([facility]) Unspecified hypothyroidism documented in this encounter [facility] HealthcareEvaluation note* Diagnosis Mild intermittent asthma without complication (CMS/HCC)- Primary documented in this encounter [facility] HealthcareEvaluation note* Diagnosis MDD (major depressive disorder), single episode, in partial remission (HCC) ([facility])- Primary Screening for prostate cancer Special screening for malignant neoplasm of prostate Mixed hyperlipidemia (CMS/HCC) Mixed hyperlipidemia Hypothyroidism (acquired) ([facility]) Unspecified hypothyroidism Primary hypertension ([facility]) Unspecified essential hypertension Seasonal allergies Allergic rhinitis, cause unspecified Pre-diabetes Other abnormal glucose Dermatitis Contact dermatitis and other eczema, due to unspecified cause Major depressive disorder with single episode, in partial remission (HCC) ([facility]) Obesity (BMI 30-39.9)- Primary Asthmatic bronchitis with acute exacerbation, unspecified asthma severity, unspecified whether persistent ([facility]) Screening for colon cancer Special screening for malignant neoplasms, colon Asthmatic bronchitis with acute exacerbation, unspecified asthma severity, unspecified whether persistent ([facility])- Primary Primary hypertension ([facility]) Unspecified essential hypertension History of colonic polyps Personal history of colonic polyps Major depressive disorder with single episode, in partial remission (HCC) ([facility]) Obesity (BMI 30-39.9) Gastroenteritis- Primary Other and unspecified noninfectious gastroenteritis and colitis Obesity (BMI 30-39.9) Hypothyroidism (acquired) ([facility]/HCC)- Primary Unspecified hypothyroidism Allergic bronchopulmonary aspergillosis ([facility]/HCC) Allergic bronchopulmonary aspergillosis Primary hypertension ([facility]/HCC) Unspecified essential hypertension Obesity (BMI 30-39.9) Mild intermittent asthma without complication ([facility]/HCC) Primary hypertension ([facility]/HCC)- Primary Unspecified essential hypertension 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 Encounter for wellness examination in adult Screening for prostate cancer Special screening for malignant neoplasm of prostate Needs flu shot Need for prophylactic vaccination and inoculation against influenza Pleurisy Pleurisy without mention of effusion or current tuberculosis Gastroenteritis Other and unspecified noninfectious gastroenteritis and colitis Gastroesophageal reflux disease without esophagitis Esophageal reflux Obesity (BMI 30-39.9) Hypothyroidism (acquired) ([facility]/HCC) Unspecified hypothyroidism Pre-diabetes Other abnormal glucose Major depressive disorder with single episode, in partial remission (HCC) ([facility]) Thoracic spine pain Pain in thoracic spine BPH with urinary obstruction Hypertrophy of prostate with urinary obstruction and other lower urinary tract symptoms (LUTS) Nausea and vomiting, unspecified vomiting type- Primary Obesity (BMI 30-39.9) Gastroenteritis Other and unspecified noninfectious gastroenteritis and colitis RUQ pain- Primary Abdominal pain, right upper quadrant Type 2 diabetes mellitus without complication, without long-term current use of insulin ([facility]) Kidney stone on right side documented in this encounter [facility] HealthcareEvaluation note* Diagnosis MDD (major depressive disorder), single episode, in partial remission (HCC) ([facility])- Primary Screening for prostate cancer Special screening for malignant neoplasm of prostate Mixed hyperlipidemia (CMS/HCC) Mixed hyperlipidemia Hypothyroidism (acquired) ([facility]) Unspecified hypothyroidism Primary hypertension ([facility]) Unspecified essential hypertension Seasonal allergies Allergic rhinitis, cause unspecified Pre-diabetes Other abnormal glucose Dermatitis Contact dermatitis and other eczema, due to unspecified cause Major depressive disorder with single episode, in partial remission (HCC) ([facility]) Obesity (BMI 30-39.9)- Primary Asthmatic bronchitis with acute exacerbation, unspecified asthma severity, unspecified whether persistent ([facility]) Screening for colon cancer Special screening for malignant neoplasms, colon Asthmatic bronchitis with acute exacerbation, unspecified asthma severity, unspecified whether persistent ([facility]/HCC)- Primary Primary hypertension ([facility]) Unspecified essential hypertension History of colonic polyps Personal history of colonic polyps Major depressive disorder with single episode, in partial remission (HCC) ([facility]) Obesity (BMI 30-39.9) Gastroenteritis- Primary Other and unspecified noninfectious gastroenteritis and colitis Obesity (BMI 30-39.9) Hypothyroidism (acquired) ([facility])- Primary Unspecified hypothyroidism 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 Primary hypertension ([facility]/HCC) Unspecified essential hypertension Obesity (BMI 30-39.9) Mild intermittent asthma without complication (CMS/HCC) Primary hypertension ([facility])- Primary Unspecified essential hypertension Allergic bronchopulmonary aspergillosis ([facility]/HCC) Allergic bronchopulmonary aspergillosis Encounter for wellness examination in adult Screening for prostate cancer Special screening for malignant neoplasm of prostate Needs flu shot Need for prophylactic vaccination and inoculation against influenza Pleurisy Pleurisy without mention of effusion or current tuberculosis Gastroenteritis Other and unspecified noninfectious gastroenteritis and colitis Gastroesophageal reflux disease without esophagitis Esophageal reflux Obesity (BMI 30-39.9) Hypothyroidism (acquired) ([facility]) Unspecified hypothyroidism Pre-diabetes Other abnormal glucose Major depressive disorder with single episode, in partial remission (HCC) ([facility]) Thoracic spine pain Pain in thoracic spine BPH with urinary obstruction Hypertrophy of prostate with urinary obstruction and other lower urinary tract symptoms (LUTS) Nausea and vomiting, unspecified vomiting type- Primary Obesity (BMI 30-39.9) Gastroenteritis Other and unspecified noninfectious gastroenteritis and colitis Asthmatic bronchitis with acute exacerbation, unspecified asthma severity, unspecified whether persistent ([facility])- Primary RUQ pain Abdominal pain, right upper quadrant Type 2 diabetes mellitus without complication, without long-term current use of insulin ([facility]) Kidney stone on right side Seasonal allergies Allergic rhinitis, cause unspecified ABPA (allergic bronchopulmonary aspergillosis) ([facility]) Allergic bronchopulmonary aspergillosis Primary hypertension ([facility]) Unspecified essential hypertension MDD (major depressive disorder), single episode, in partial remission (HCC) ([facility]) Obesity (BMI 30-39.9) documented in this encounter [facility] HealthcareEvaluation note* Diagnosis MDD (major depressive disorder), single episode, in partial remission (HCC) ([facility])- Primary Screening for prostate cancer Special screening for malignant neoplasm of prostate Mixed hyperlipidemia ([facility]/HCC) Mixed hyperlipidemia Hypothyroidism (acquired) ([facility]) Unspecified hypothyroidism Primary hypertension ([facility]) Unspecified essential hypertension Seasonal allergies Allergic rhinitis, cause unspecified Pre-diabetes Other abnormal glucose Dermatitis Contact dermatitis and other eczema, due to unspecified cause Major depressive disorder with single episode, in partial remission (HCC) ([facility]) Obesity (BMI 30-39.9)- Primary Asthmatic bronchitis with acute exacerbation, unspecified asthma severity, unspecified whether persistent ([facility]) Screening for colon cancer Special screening for malignant neoplasms, colon Asthmatic bronchitis with acute exacerbation, unspecified asthma severity, unspecified whether persistent (CMS/HCC)- Primary Primary hypertension (CMS/HCC) Unspecified essential hypertension History of colonic polyps Personal history of colonic polyps Major depressive disorder with single episode, in partial remission (HCC) (CMS/HCC) Obesity (BMI 30-39.9) Gastroenteritis- Primary Other and unspecified noninfectious gastroenteritis and colitis Obesity (BMI 30-39.9) Hypothyroidism (acquired) (CMS/HCC)- Primary Unspecified hypothyroidism 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 Primary hypertension (CMS/HCC) Unspecified essential hypertension Obesity (BMI 30-39.9) Mild intermittent asthma without complication (CMS/HCC) Primary hypertension (CMS/HCC)- Primary Unspecified essential hypertension 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 Encounter for wellness examination in adult Screening for prostate cancer Special screening for malignant neoplasm of prostate Needs flu shot Need for prophylactic vaccination and inoculation against influenza Pleurisy Pleurisy without mention of effusion or current tuberculosis Gastroenteritis Other and unspecified noninfectious gastroenteritis and colitis Gastroesophageal reflux disease without esophagitis Esophageal reflux Obesity (BMI 30-39.9) Hypothyroidism (acquired) (CMS/HCC) Unspecified hypothyroidism Pre-diabetes Other abnormal glucose Major depressive disorder with single episode, in partial remission (HCC) (CMS/HCC) Thoracic spine pain Pain in thoracic spine BPH with urinary obstruction Hypertrophy of prostate with urinary obstruction and other lower urinary tract symptoms (LUTS) Nausea and vomiting, unspecified vomiting type- Primary Obesity (BMI 30-39.9) Gastroenteritis Other and unspecified noninfectious gastroenteritis and colitis Asthmatic bronchitis with acute exacerbation, unspecified asthma severity, unspecified whether persistent (CMS/HCC)- Primary RUQ pain Abdominal pain, right upper quadrant Type 2 diabetes mellitus without complication, without long-term current use of insulin (CMS/HCC) Kidney stone on right side Seasonal allergies Allergic rhinitis, cause unspecified ABPA (allergic bronchopulmonary aspergillosis) (CMS/HCC) Allergic bronchopulmonary aspergillosis Primary hypertension (CMS/HCC) Unspecified essential hypertension MDD (major depressive disorder), single episode, in partial remission (HCC) (CMS/HCC) Obesity (BMI 30-39.9) URI, acute Acute upper respiratory infections of unspecified site Mild intermittent asthma without complication (CMS/HCC) documented in this encounter [facility] Narrative No data available for this section [facility] Discharge instructions No data available for this section General Surgery [place] Progress note No data available for this section [facility] Reason for Referral Referred by: Christiano PAREDES, Julissa Matthews No data available for this section Summary Purpose Family History No Family History Records Found Advance Directives No Advanced Directives Records FoundNo Advanced Directives Records Found Additional Source Comments Patient Care team informatio n (unrecognized section and content) Yard Pilot Relationship Specialty Start Date End Date Manohar Adorno MD [address] [place] [address] PCP - Medical [employer] 05/26/22 09/24/99 Unallocated, Debora Larios MD [facility] [place] [address] PCP - General Family Medicine 07/17/24 Sabine Verde NP [address] [place] [address] Nurse Practitioner Family Medicine 08/23/23 Sabine Verde NP [address] [place] [address] Nurse Practitioner Family Medicine 11/16/23 Yard Pilot Relationship Specialty Start Date End Date Manohar Adorno MD [address] [place] [address] PCP - Medical [employer] 05/26/22 09/24/99 Unallocated, Debora Larios MD [address] [facility] [address] PCP - General Family Medicine 07/17/24 Sabine Verde NP [address] [place] [address] Nurse Practitioner Family Medicine 08/23/23 Sabine Verde NP [address] [place] [address] Nurse Practitioner Family Medicine 11/16/23 Yard Pilot Relationship Specialty Start Date End Date Manohar Adorno MD [address] [place] [address] PCP - General Family Medicine 11/16/23 07/16/24 Manohar Adorno MD [address] [place] [address] PCP - Medical [employer] 05/26/22 09/24/99 Unallocated, Cashs MD Harriet [address] [place] [address] PCP - General Family Medicine 07/17/24 07/24/24 Manohar Adorno MD [address] [place] [address] PCP - General Family Medicine 07/25/24 Sabine Verde NP [address] [place] [address] Nurse Practitioner Family Medicine 08/23/23 Sabine Verde NP [address] [place] [address] Nurse Practitioner Family Medicine 11/16/23 Yard Pilot Relationship Specialty Start Date End Date Manohar Adorno MD [address] [place] [address] PCP - Medical [employer] 05/26/22 09/24/99 Manohar Adorno MD [address] [place] [address] PCP - General Family Medicine 07/25/24 Sabine Verde NP [address] [place] [address] Nurse Practitioner Family Medicine 08/23/23 Sabine Verde NP [address] [place] [address] Nurse Practitioner Family Medicine 11/16/23 Yard Pilot Relationship Specialty Start Date End Date Manohar Adorno MD [address] [place] [address] PCP - Medical [employer] 05/26/22 09/24/99 Manohar Adorno MD [address] [place] [address] PCP - General Family Medicine 07/25/24 Sabine Verde NP [address] [place] [address] Nurse Practitioner Family Medicine 08/23/23 Sabine Verde NP [address] [place] [address] Nurse Practitioner Family Medicine 11/16/23 Yard Pilot Relationship Specialty Start Date End Date Manohar Adorno MD [address] [place] [address] PCP - Medical [employer] 05/26/22 09/24/99 Manohar Adorno MD [address] [place] [address] PCP - General Family Medicine 07/25/24 Sabine Verde NP [address] [place] [address] Nurse Practitioner Family Medicine 08/23/23 Sabine Verde NP [address] [place] [address] Nurse Practitioner Family Medicine 11/16/23 Yard Pilot Relationship Specialty Start Date End Date Manohar Adorno MD [address] [place] [address] PCP - Medical [employer] 05/26/22 09/24/99 Manohar Adorno MD [address] [place] [address] PCP - General Family Medicine 07/25/24 Sabine Verde NP [address] [place] [address] Nurse Practitioner Family Medicine 08/23/23 Sabine Verde NP [address] [place] [address] Nurse Practitioner Family Medicine 11/16/23 Yard Pilot Relationship Specialty Start Date End Date Manohar Adorno MD [address] [place] [address] PCP - Medical [employer] 05/26/22 09/24/99 Manohar Adorno MD [address] [place] [address] PCP - General Family Medicine 07/25/24 Sabine Verde NP [address] [place] [address] Nurse Practitioner Family Medicine 08/23/23 Sabine Verde NP [address] [place] [address] Nurse Practitioner Family Medicine 11/16/23 Yard Pilot Relationship Specialty Start Date End Date Manohar Adorno MD [address] [place] [address] PCP - General Family Medicine 11/16/23 Manohar Adorno MD [address] [place] [address] PCP - Medical [employer] 05/26/22 09/24/99 Sabine Verde NP [address] [place] [address] Nurse Practitioner Family Medicine 08/23/23 Sabine Verde NP [address] [place] [address] Nurse Practitioner Family Medicine 11/16/23 Yard Pilot Relationship Specialty Start Date End Date Manohar Adorno MD [address] [place] [address] PCP - Medical [employer] 05/26/22 09/24/99 Manohar Adorno MD [address] [place] [address] PCP - General Family Medicine 07/25/24 Sabine Verde NP [address] [place] [address] Nurse Practitioner Family Medicine 08/23/23 Sabine Verde NP [address] [place] [address] Nurse Practitioner Family Medicine 11/16/23 Yard Pilot Relationship Specialty Start Date End Date Manohar Adorno MD [address] [place] [address] PCP - Medical [employer] 05/26/22 09/24/99 Manohar Adorno MD [address] [place] [address] PCP - General Family Medicine 07/25/24 Sabine Verde NP [address] [place] [address] Nurse Practitioner Family Medicine 08/23/23 Sabine Verde NP [address] [place] [address] Nurse Practitioner Family Medicine 11/16/23 Yard Pilot Relationship Specialty Start Date End Date Manohar Adorno MD [address] [place] [address] PCP - Medical [employer] 05/26/22 09/24/99 Manohar Adorno MD [address] [place] [address] PCP - General Family Medicine 07/25/24 Sabine Verde NP [address] [place] [address] Nurse Practitioner Family Medicine 08/23/23 Sabine Verde NP [address] [place] [address] Nurse Practitioner Family Medicine 11/16/23 (unrecognized sect ion and content) No Status Records FoundNo Status Records Found INFORMATION SOURCE (unrecogn ized section and content) DATE CREATED AUTHOR 12/12/2023 [facility] DATE CREATED AUTHOR AUTHOR'S ORGANCHIDI ATION 09/25/2024 [facility] EPIC Reason for Visit (unrecogniz [...] BE BASED ON THE PRIMARY CLINICAL RECORDS. [employer] provides no warranty or guarantee of the accuracy or completeness of information in this document.
--- NOTE | 2024-10-04 10:32 | XR_ITS ---
The [address] [address] Patient Name: JULISA BATISTA MRN: [id number] date: 1955 Sex: M Assigned Patient Location: NE Current Patient Location: [place] Accession/Order Number: [id number] Exam Date: 10/04/2024 10:40 Report Date: 10/04/2024 12:46 At the request of: SJ GUARDADO Procedure: XR abdomen min 2V EXAMINATION: XR abdomen min 2V HISTORY: Kidney Stone Right Side COMPARISON: No relevant comparison available. FINDINGS: KIDNEY/URETER - RIGHT: No visible kidney stone. KIDNEY/URETER - LEFT: 4 mm stone projecting over inferior pole. PELVIS: 4 x 2 mm calcification within lower right pelvis; phleboliths versus distal ureteral stone. BOWEL: No abnormal dilation or deviation. BONES: No acute abnormality. OTHER: Numerous surgical anchors projecting over left pelvis. XR/XR abdomen min 2V IMPRESSION: 1. No visible stone within right kidney, but evaluation is limited by dense bowel content. 2. Phlebolith versus distal right ureteral stone. No comparison studies. 3. Nonobstructing left nephrolithiasis. Electronically authenticated by: NAVEED FOX Date: 10/04/2024 12:46
== END 2024-10-04 09:58 | disposition home or self-care (01) ==
LOC: NM 09:58
PROVIDERS: PCP Nurse Practitioner; Visit Provider Nurse Practitioner
DX: R10.11 Right upper quadrant pain (principal); N20.0 Calculus of kidney
CPT/HCPCS: 74019; 78227; A9537

== ENCOUNTER 2025-08-18 11:10 | Outpatient (OUT) | payer OTHER, SELFPAY ==
--- OUTSIDE RECORDS SUMMARY | 2025-08-08 11:00 | XMS_ITS | Encounter Summary ---
Author Organization [facility] Address [address] [place] [address] Care Team Providers Care Commercial Management Accountant Name Role Phone Sabine Verde NP Unavailable [phone] Manohar Adorno MD Primary Care Provider [phone] Reason for Visit * ReasonCommentsDM Foot Care Encounter Details DateTypeDepartmentCare Team (Latest Contact Info)Euwtuybbefr91/14/2025 11:00 AM ESTOffice Visit [facility] [address] [place] [address] Santos Hewitt DPAdriana [address] [address] Acquired deformity of left toe (Primary Dx); Diabetes mellitus due to underlying condition with diabetic polyneuropathy, without long-term current use of insulin (HCC); Pain due to onychomycosis of toenails of both feet; Neoplasm of uncertain behavior of skin Social History Tobacco UseTypesPacks/DayYears UsedDateSmoking Tobacco: NeverSmokeless Tobacco: Never Tobacco Cessation:Counseling Given: Yes Alcohol UseStandard Drinks/WeekCommentsNot Currently0 (1 standard drink = 0.6 oz pure alcohol)Humiliation, Afraid, Rape, and Kick questionnaireAnswerDate RecordedWithin the last year, have you been afraid of your partner or ex-partner?No11/02/2023Within the last year, have you been humiliated or emotionally abused in other ways by your partner or ex-partner?No11/02/2023 Within the last year, have you been kicked, hit, slapped, or otherwise physically hurt by your partner or ex-partner?No11/02/2023Within the last year, have you been raped or forced to have any kind of sexual activity by your part ner or ex-partner?No11/02/2023Social Connection and Isolation PanelAnswerDate RecordedIn a typical week, how many times do you talk on the phone with family, friends, or neighbors?Twice a week11/02/2023How often do you get together with friends or relatives?Once a week11/02/2023How often do you attend denominational or advent services?More than 4 times per year11/02/2023o you belong to any clubs or organizations such as denominational groups, unions, fraSearchles or athletic abilio ups, or school groups?Yes11/02/2023How often do you attend meetings of the clubs or organizations you belong to?More than 4 times per year11/02/2023re you , , , , never , or living with a partner? Ttrgozw6111/02/2023UDIT-CAnswerDate RecordedQ1: How often do you have a drink containing alcohol?Monthly or less11/02/2023Q2: How many drinks containing alcohol do you have on a typical day when you are drinking?1 or Q3: How often do you have six or more drinks on one occasion?Never11/02/2023Overall Financial Resource Strain (CARDIA)AnswerDate RecordedHow hard is it for you to pay for the very basics like food, housing, medical care, and heating?Not hard at all11/02/2023HQ-2AnswerDate RecordedPatient Health Questionnaire-2 Score0 03/18/2024[facility] [place] [facility] - Occupational Stress QuestionnaireAnswerDate RecordedDo you feel stress - tense, restless, nervous, or anxious, or unable to sleep at night because yourmind is troubled all the time - these days?Not at all11/02/2023Exercise Vital SignAnswerDate RecordedOn average, how many days per week do you engage in moderate to strenuous exercise (like a brisk walk)?1 day11/02/2023On average, how many minutes do you engage in exercise at this level?10 min11/02/2023Hunger Vital SignAnswerDate Recorded Within the past 12 months, you worried that your food would run out before you got the money to buymore.Never true11/02/2023Within the past 12 months, the food you bought just didn't last and you didn't have money to get more.Never true 11/02/2023RAPARE - TransportationAnswerDate RecordedIn the past 12 months, has lack of transportation kept you from medical appointments or from getting medications?No11/02/2023In the past 12 months, has lack of transportation kept you from meetings, work, or from getting things needed for daily living?No 11/02/2023Housing Stability Vital SignAnswerDate RecordedIn the last 12 months, was there a time when you were not able to pay the mortgage or rent on time?No 11/02/2023Number of Places Lived in the Last YearNot on file11/02/2023In the last 12 months, was there a time when you did not have a steady place to sleep or slept in [facility] (including now)?No11/02/2023Sex and Gender InformationValue Date RecordedSex Assigned at BirthNot on fileLegal OcnIsvq7512/07/2022 11:47 PM EDTGender IdentityNot on fileSexual OrientationNot on filedocumented as of this encounter Last Filed Vital Signs Vital SignReadingTime TakenCommentsBlood Pressure--Pulse--Temperature-- Respiratory Pesk118210/08/2024 11:18 AM ESTOxygen Saturation--Inhaled Oxygen Concentration--Qwqmpo78.8 kg (198 lb)08/08/2025 11:18 AM PQTLnqhrh574.8 cm (5' 10 )08/08/2025 11:18 AM ESTBody Mass Index28.41110/08/2024 11:18 AM ESTdocumented in this encounter Progress Notes * Santos Hewitt DPM - 08/08/2025 11:00 AM EST Patient: Jay Chandler : 1955 PCP: Manohar Adorno MD SUBJECTIVE This is a 69 y.o. male that presents today with a CC of elongated, thick nails. Pt states nails have been elongated and thick for many years and cause pain with ambulation in shoegear. Pt has tried previous treatment with minimal relief. Pt presents today for nail care and treatment. Patient is DM2 with peripheral neuropathy. Patient also has complaints of left 3rd digital deformity has sometimes painful with ambulation anddenies any treatment. Patient has had painful left 3rd digital deformity for many years and states it is painful up to a 7/10 that is painful lesion to the end of the left 3rd toe with negative treatment. 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 Asthma ([facility]) 11/09/2023 Erectile dysfunction 11/09/2023 Hyperlipidemia 11/09/2023 Hypertension Inguinal hernia 11/09/2023 Onychomycosis Pleurisy 11/09/2023 Pre-diabetes Thyroid trouble Visual impairment 11/09/2023 Medications: Current Outpatient Medications: albuterol (2.5 MG/3ML) 0.083% nebulizer solution, USE 1 VIAL VIA NEBULIZER EVERY 8 HOURS NEEDED FOR WHEEZING OR SHORTNESS OF BREATH, Disp: 825 mL, Rfl: 0 albuterol HFA 90 mcg/act inhaler, Inhale 2 puffs every 6 (six) hours if needed for wheezing or shortness of breath, Disp: 6.7 g, Rfl: 0 amitriptyline (Elavil) 10 MG tablet, Take 1 tablet (10 mg) by mouth at bedtime, Disp: 90 tablet, Rfl: 1 atorvastatin (Lipitor) 40 MG tablet, Take 1 tablet (40 mg) by mouth at bedtime, Disp: 90 tablet, Rfl: 1 buPROPion XL (Wellbutrin XL) 300 MG 24 hr tablet, Take 1 tablet (300 mg) by mouth in the morning., Disp: 90 tablet, Rfl: 1 cetirizine ([employer] Allergy Relief,Cetirizine,) 10 MG tablet, Take 1 tablet (10 mg) by mouth in the morning., Disp: 90 tablet, Rfl: 1 hydrocortisone 2.5 % cream, Apply to face bid prn for flares, hold then clear/30 days, Disp: 30 g, Rfl: 3 hyoscyamine (Levsin/SL) 0.125 MG SL tablet, Take 1 tablet (0.125 mg) by mouth every 6 (six) hours if needed for cramping for up to 7 days, Disp: 28 tablet, Rfl: 0 ibuprofen 600 MG tablet, Take 600 mg by mouth every 12 (twelve) hours if needed for mild pain., Disp: , Rfl: levothyroxine (Synthroid, Levoxyl) 88 MCG tablet, Take 1 tablet (88 mcg) by mouth in the morning. Take before meals., Disp: 90 tablet, Rfl: 1 lisinopril 10 MG tablet, Take 1 tablet (10 mg) by mouth in the morning., Disp: 90 tablet, Rfl: 1 metFORMIN (Glucophage) 500 MG tablet, Take 1 tablet (500 mg) by mouth in the morning and 1 tablet (500 mg) in the evening. Take with meals., Disp: 180 tablet, Rfl: 1 montelukast (Singulair) 10 MG tablet, Take 1 tablet (10 mg) by mouth at bedtime, Disp: 90 tablet, Rfl: 1 omeprazole (PriLOSEC) [address] capsule, Take 1 capsule (20 mg) by mouth in the morning. Take beforemeals. Do not crush or chew., Disp: 90 capsule, Rfl: 1 pimecrolimus (Elidel) 1 % cream, 1 (one) time each day at the same time, Disp: , Rfl: sildenafil (Viagra) 100 MG tablet, Take 1 tablet (100 mg) by mouth Daily as needed for erectile dysfunction Take 1 hour prior to sexual activity, Disp: 30 tablet, Rfl: 1 SUMAtriptan (Imitrex) 25 MG tablet, Take 25 mg by mouth if needed for migraine. May repeat dose once in 2 hours if no relief. Do not exceed 2 doses in 24 hours., Disp: , Rfl: triamcinolone (Kenalog) 0.1 % cream, Apply to hands and legs BID prn when flared. Hold when skin issmooth/asymptomatic. Do not use on the face, neck. Armpits or groin/30 days, Disp: 80 g, Rfl: 3 Social History: Social History Socioeconomic History Marital status: Spouse name: Not on file Number of children: Not on file Years of education: Not on file Highest education level: Not on file Occupational History Not on file Tobacco Use Smoking status: Never Smokeless tobacco: Never Substance and Sexual Activity Alcohol use: Not Currently Drug use: Never Sexual activity: Not on file Other Topics Concern Not on file Social History Narrative Not on file Social Drivers of Health Financial Resource Strain: Low Risk (11/02/2023) Overall Financial Resource Strain (CARDIA) Difficulty of Paying Living Expenses: Not hard at all Food Insecurity: No Food Insecurity (11/02/2023) Hunger Vital Sign Worried About Running Out of Food in the Last Year: Never true Ran Out of Food in the Last Year: Never true Transportation Needs: No Transportation Needs (11/02/2023) PRAPARE - Transportation Lack of Transportation (Medical): No Lack of Transportation (Non-Medical): No Physical Activity: Insufficiently Active (11/02/2023) Exercise Vital Sign Days of Exercise per Week: 1 day Minutes of Exercise per Session: 10 min Stress: No Stress Concern Present (11/02/2023) [employer] [place] of Occupational Health - Occupational Stress Questionnaire Feeling of Stress : Not at all Social Connections: Socially Integrated (11/02/2023) Social Connection and Isolation Panel Frequency of Communication with Friends and Family: Twice a week Frequency of Social Gatherings with Friends and Family: Once a week Attends Congregation Services: More than 4 times per year Active Member of Clubs or Organizations: Yes Attends Club or Organization Meetings: More than 4 times per year Marital Status: Intimate Partner Violence: Not At Risk (11/02/2023) Humiliation, Afraid, Rape, and Kick questionnaire Fear of Current or Ex-Partner: No Emotionally Abused: No Physically Abused: No Sexually Abused: No Housing Stability: Unknown (11/02/2023) Housing Stability Vital Sign Unable to Pay for Housing in the Last Year: No Number of Places Lived in the Last Year: Not on file Unstable Housing in the Last Year: No ROS: Gastrointestinal: denies abdominal pain, ulcers, or changes in appetite or bowel habits Musculoskeletal: positive hx of arthritis, loss of strength, with positive history of back pain with degenerative disc disease Cardiovascular: denies CP, palpitations, irregular rhythms OBJECTIVE LE EXAM: DERM: Elongated thick yellow crumbly nails digits 1 through 10. Negative hair growth with thin shiny atrophic skin bilaterally. Rubor to the left 3rd digit Distal left 3rd digit has nummular lesion that measure 0.2 cm x 0.3 cm VASC: positive DP and negative PT pedal pulses 5.07 Bellona Belgica monofilament test intact to digits and forefoot bilaterally 125Hz tuning fork diminished to 1st MPJ left and intact right ORTHO: Positive pain on palpation to toenails of the left 1,2,3,4,5 toes and right 1,2,3,4,5 toes Flexion deformity of left 3rd toe Positive pain on palpation to left 3rd toe lesion ASSESSMENT 1. Diabetes mellitus due to underlying condition with diabetic polyneuropathy, without long-term current use of insulin (HCC) 2. Pain due to onychomycosis of toenails of both feet 3. Acquired deformity of left toe 4. Neoplasm of uncertain behavior of skin PLAN Discussed proper foot care with patient today. Debride nails in length and thickness digits 1 through 10 Patient educated today on proper diabetic foot care including monitoring feet daily for any signs of infection openings in the skin or irregularities to both feet. Patient had a diabetic neurologicalexam today to both their feet and discussed proper shoe gear. Discussed conservative and surgical treatment options for patient today including postoperative time frame and surgical procedure in detail. Patient may continue with conservative treatments including [id number] anti- inflammatories and other treatments suggested today. Patient may want to be s cheduled for surgical intervention in the near future. Patient has left 3rd toe PIPJ arthroplasty with excision of lesion of less than 0.5 cm and would like Ultram for postop pain Santos Hewitt DPM documented in this encounter Plan of Treatment DateTypeDepartmentCare Team (Latest Contact Info)Jowwqaaqkqd03/03/2025 3:50 PM ESTOffice Visit [facility] [address] [place] [address] Santos Hewitt DPM [address] [address] 09/10/2025 2:30 PM ESTOffice Visit [facility] [address] [place] [address] Santos Hewitt DPM [address] [facility] [place] [address] 10/14/2025 12:40 PM ESTOffice Visit [facility] [address] [place] [address] Hilda Reynaga, PA [address] [place] [address] 10/17/2025 11:40 AM ESTOffice Visit [facility] [address] [place] [address] Santos Hewitt DPM [address] [facility] [place] [address] documented as of this encounter Visit Diagnoses Diagnosis Acquired deformity of left toe- Primary Diabetes mellitus due to underlying condition with diabetic polyneuropathy, without long-term current use of insulin (HCC) Pain due to onychomycosis of toenails of both feet Neoplasm of uncertain behavior of skin documented in this encounter Care Teams Team MemberRelationshipSpecialtyStart DateEnd Date Manohar Adorno MD [address] [place] [address] PCP - GeneralFamily Jlpesxit80/31/24 Sabine Verde NP [address] [place] [address] Nurse PractitionerFamily Qiwuxymi32/29/23documented as of this encounter
--- OUTSIDE RECORDS SUMMARY | 2025-08-18 11:18 | XMS_ITS | Encounter Summary ---
Author Organization [facility] Address [address] [place] [address] Care Team Providers Care Garland Machine Operator Name Role Phone Sabine Verde NP Unavailable [phone] Manohar Adorno MD Primary Care Provider Encounter Details DateTypeDepartmentCare Team (Latest Contact Info)Rsjuteamutr97/14/2025amboo flowsheet [facility] [address] [place] [phone] Santos Hewitt, DPAdriana [address] [address] Social History Tobacco UseTypesPacks/DayYears UsedDateSmoking Tobacco: NeverSmokeless Tobacco: NeverAlcohol UseStandard Drinks/WeekCommentsNot Currently0 (1 standard drink = [...] sexual activity by your part ner or ex-partner?11/02/2023Social Connection and Isolation PanelAnswerDate RecordedIn a typical week, how many times do you talk on the phone with family, friends, or neighbors?Twice a week11/02/2023How often do you get together with friends or relatives?Once a week11/02/2023How often do you attend hoahaoism or moravian services?More than 4 times per year11/02/2023o you belong to any clubs or organizations such as hoahaoism groups, unions, fraternal or athletic abilio ups, or school groups?Yes11/02/2023How often do you attend meetings of the clubs or organizations you belong to?More than 4 times per year11/02/2023re you , , , , never , or living with a partner? Lnappev0711/02/2023UDIT-CAnswerDate RecordedQ1: How often do you have a [...] hard at all11/02/2023HQ-2AnswerDate RecordedPatient Health Questionnaire-2 Score0 03/18/2024[facility] [place] of Occupational Health - Occupational Stress QuestionnaireAnswerDate [...] steady place to sleep or slept in ashelter (including now)?No11/02/2023Sex and Gender InformationValue Date RecordedSex Assigned at BirthNot on fileLegal SviLspq9212/07/2022 11:47 PM EDTGender IdentityNot on fileSexual OrientationNot on filedocumented as of this encounter Plan of Treatment DateTypeDepartmentCare Team (Latest Contact Info)Wumvmgtqeut88/03/2025 3:50 PM ESTOffice Visit [facility] [address] [place] [address] Santos Hewitt DPM [address] [facility] [place] [address] 09/10/2025 2:30 PM ESTOffice Visit [facility] [address] [place] [address] Santos Hewitt DPM [address] [facility] [address] [place] [address] 10/14/2025 12:40 PM ESTOffice Visit [facility] [address] [place] [address] Hilda Reynaga, PA [address] [place] [address] 10/17/2025 11:40 AM ESTOffice Visit [facility] [address] [place] [address] Santos Hewitt DPAdriana [address] [facility] [address] [place] [address] documented as of this encounter Visit Diagnoses Not on filedocumented in this encounter Care Teams Team MemberRelationshipSpecialtyStart DateEnd Date Manohar Adorno MD [address] [place] [address] PCP - GeneralFamily Uegdjraz86/31/24 Sabine Verde NP [address] [place] [address] Nurse PractitionerFamily Ukpqucfn31/29/23documented as of this encounter
--- OUTSIDE RECORDS SUMMARY | 2025-08-18 11:18 | XMS_ITS | Encounter Summary ---
Author Organization [facility] Address [address] [place] [address] Care Team Providers Care Health Service Coordinator Name Role Phone Sabine Verde NP Unavailable [phone] Manohar Adorno MD Primary Care Provider [phone] Encounter Details DateTypeDepartmentCare Team (Latest Contact Info)Vvygryochem80/20/2025Orders Only [facility] [address] [facility] [place] [address] Alethea Ferro Preop examination Social History Tobacco UseTypesPacks/DayYears UsedDateSmoking Tobacco: NeverSmokeless [...] relatives?Once a week11/02/2023How often do you attend alevism or zoroastrianism services?More than 4 times per year11/02/2023o you belong to any clubs or organizations such as alevism groups, unions, fraternal or athletic abilio ups, or school groups?Yes11/02/2023How often do you attend meetings of the clubs or organizations you belong to?More than 4 times per year11/02/2023re you , , , , never , or living with a partner? Rcevela0711/02/2023UDIT-CAnswerDate RecordedQ1: How often do you have a [...] hard at all11/02/2023HQ-2AnswerDate RecordedPatient Health Questionnaire-2 Score0 03/18/2024[facility] [place] of Occupational Health - Occupational Stress QuestionnaireAnswerDate [...] steady place to sleep or slept in [facility] (including now)?No11/02/2023Sex and Gender InformationValue Date RecordedSex Assigned at BirthNot on fileLegal WtnDzup6712/07/2022 11:47 PM EDTGender IdentityNot on fileSexual OrientationNot on filedocumented as of this encounter Plan of Treatment DateTypeDepartmentCare Team (Latest Contact Info)Gxrtfkgpvnp20/03/2025 3:50 PM ESTOffice Visit [facility] [address] [place] [address] Santos Hewitt DPM [address] [address] 09/10/2025 2:30 PM ESTOffice Visit [facility] [address] [place] [address] Santos Hewitt DPM [address] [facility] 5 [place] [address] 10/14/2025 12:40 PM ESTOffice Visit [facility] [address] [place] [address] Hilda Reynaga, PA [address] [place] [address] 10/17/2025 11:40 AM ESTOffice Visit [facility] [address] [place] [address] Santos Hewitt DPM [address] [address] NameTypePriorityAssociated DiagnosesOrder ScheduleBasic metabolic panelLab Routine Preop examination Expected: 08/14/2025 (Approximate), Expires: 10/14/2025BC and differentialLab Routine Preop examination Expected: 08/14/2025 (Approximate), Expires: 10/14/2025ECG 12 leadECGRoutine Preop examination Expected: 08/14/2025 (Approximate), Expires: 08/14/2026documented as of this encounter Visit Diagnoses Diagnosis Preop examination Unspecified pre-operative examination documented in this encounter Care Teams Team MemberRelationshipSpecialtyStart DateEnd Date Manohar Adorno MD [address] [place] [address] PCP - GeneralFamily Cqahzpkv45/31/24 Sabine Verde NP [address] [place] [address] Nurse PractitionerFamily Hwckmfks69/29/23documented as of this encounter
--- OUTSIDE RECORDS SUMMARY | 2025-08-18 11:18 | XMS_ITS | Encounter Summary ---
Author Organization [facility] Address [address] [place] [address] Care Team Providers Care Horse Rider Name Role Phone Sabine Verde NP Unavailable [phone] Manohar Adorno MD Primary Care Provider [phone] Reason for Visit * ReasonOnset FdoaRgbyicneKpzmkwzsm25/14/2025 Encounter Details DateTypeDepartmentCare Team (Latest Contact Info)Ayzymisofvr85/14/2025Telephone [facility] [address] [facility] [address] [place] [address] Santos Hewitt DPM 3006 [facility] 5 [place] [address] Procedure Social History Tobacco UseTypesPacks/DayYears UsedDateSmoking Tobacco: NeverSmokeless [...] relatives?Once a week11/02/2023How often do you attend nondenominational or druze services?More than 4 times per year11/02/2023o you belong to any clubs or organizations such as nondenominational groups, unions, fraWingz or athletic abilio ups, or school groups?Yes11/02/2023How often do you attend meetings of the clubs or organizations you belong to?More than 4 times per year11/02/2023re you , , , , never , or living with a partner? Sqzbmwj1011/02/2023UDIT-CAnswerDate RecordedQ1: How often do you have a [...] hard at all11/02/2023HQ-2AnswerDate RecordedPatient Health Questionnaire-2 Score0 03/18/2024[facility] [place] of Occupational Health - Occupational Stress QuestionnaireAnswerDate [...] before you got the money to buymore.Never true02/08/2024Within the past 12 months, the food you [...] Date RecordedSex Assigned at BirthNot on fileLegal RysUbvf3812/07/2022 11:47 PM EDTGender IdentityNot on fileSexual OrientationNot on filedocumented as of this encounter Miscellaneous Notes * Telephone Encounter - Alethea Ferro - 08/14/2025 2:52 PM EST Per call with [facility] @ [phone] with [employer], policy is active and and [facility] are in network. Patient has met 350 individual deductible and has met 431.47 of 9,100 oop deductible. Codes 16583 [id number] do not require prior authorization. Reference#: [id number] PST orders were sent to [facility] PCP appt is 12-2 at 2:20pm Surgery scheduled on both portals. Demographics, insurance card, office notes, sx form uploaded to [facility] portal. * Telephone Encounter - Santos Hewitt DPM - 08/08/2025 12:01 PM EST [facility] DATE-- near future PCP: Sabine Lu/ Manohar Adorno MD DIAGNOSIS WITH PROCEDURES 1) left 3rd toe digital deformity with left 3rd toe neoplasm of skin with left 3rd digit PIPJ arthroplasty excision of lesion less than 0.5 cm M20.62/08898 D48.5/64645 Approximate case length:35vmin SPECIAL NEEDS FOR CASE-- : none PT CRUTCH OR WALKER TRAINING NEEDED? NO WEIGHT BEARING STATUS-- PWB ULTRAM documented in this encounter Plan of Treatment DateTypeDepartmentCare Team (Latest Contact Info)Zorvwxjiixb67/03/2025 3:50 PM ESTOffice Visit [facility] [address] [place] [address] Sanots Hewitt DPM [address] [facility] 5 [place] [address] 09/10/2025 2:30 PM ESTOffice Visit [facility] [address] [place] [address] Santos Hewitt DPM [address] [address] 10/14/2025 12:40 PM ESTOffice Visit [facility] [address] [place] [address] Hilda Reynaga, JAYME [address] [place] [address] 10/17/2025 11:40 AM ESTOffice Visit [facility] [address] [place] [address] Santos Hewitt DPM [address] [facility] 5 [place] [address] documented as of this encounter Visit Diagnoses Not on filedocumented in this encounter Care Teams Team MemberRelationshipSpecialtyStart DateEnd Date Manohar Adorno MD [address] [place] [address] PCP - GeneralFamily Demcrotx83/31/24 Sabine Verde NP [address] [place] [address] Nurse PractitionerFamily Logwvlmc29/29/23documented as of this encounter
--- OUTSIDE RECORDS SUMMARY | 2025-08-18 11:18 | XMS_ITS | Clinical Summary ---
Author Organization [facility] Address [address] [place] [address] Phone Care Team Providers Care Executive Casino Host Name Role Phone Dequan West DO Primary Care Provider [phone] Dequan West DO Unavailable [phone] Medications MedicationSigDispense QuantityRefillsLast FilledStart DateEnd DateStatus albuterol 2.5 mg /3 mL (0.083 %) nebulizer solution Take 3 mL (2.5 mg) by nebulization every 8 hours if needed for wheezing or shortness of breath.4Active albuterol 90 mcg/actuation inhaler Inhale 2 puffs every 6 hours if needed.5Active amitriptyline (Elavil) 10 mg tablet Take 1 tablet (10 mg) by mouth once daily at bedtime.5Active buPROPion XL (Wellbutrin XL) 300 mg 24 hr tablet Take 1 tablet (300 mg) by mouth once daily in the morning. Take before meals. 5Active atorvastatin (Lipitor) 40 mg tablet Take 1 tablet (40 mg) by mouth once daily at bedtime.5Active cetirizine (ZyrTEC) 10 mg tablet Take 1 tablet (10 mg) by mouth once daily in the morning. Take before meals. 5Active levothyroxine (Synthroid, Levoxyl) 88 mcg tablet Take 1 tablet (88 mcg) by mouth early in the morning..5Active lisinopril 10 mg tablet Take 1 tablet (10 mg) by mouth once daily in the morning. Take before meals. 04/28/2025tive metFORMIN (Glucophage) 500 mg tablet Take 1 tablet (500 mg) by mouth 2 times a day.04/28/2025tive montelukast (Singulair) 10 mg tablet Take 1 tablet (10 mg) by mouth once daily at bedtime.04/28/2025tive ondansetron ODT (Zofran-ODT) 4 mg disintegrating tablet Dissolve 1 tablet (4 mg) in the mouth every 8 hours if needed.02/14/2025tive omeprazole (PriLOSEC) [address] capsule Take 1 capsule (20 mg) by mouth once daily in the morning. Take before meals. 04/28/2025tive sildenafil (Viagra) 100 mg tablet Take 1 tablet (100 mg) by mouth once daily as needed.04/28/2025tive SUMAtriptan (Imitrex) 25 mg tablet Take 1 tablet (25 mg) by mouth 1 time if needed for migraine.Active ibuprofen 600 mg tablet Take 1 tablet (600 mg) by mouth once daily as needed for mild pain (1 - 3). Active Active Problems ProblemNoted DateDiagnosed DateAllergic bronchopulmonary fwbcvfdiecyas20/07/2025 Acute intractable tension-type uoyowskn03/07/2025Tremors of nervous system 12/30/2024Type 2 diabetes mellitus without complication, without long-term current use of zjddofb1509/13/2024Thoracic spine pain07/17/2024Gastroesophageal reflux disease without wkispervqmy55/23/2024 Overview (05/01/2025): s/p surgery, Gblkjdlmquogti14/15/9780Afwget56/15/5628Exgyntzsfswqix83/15/2024History of colonic hkuduh2511/09/2023sthmatic bronchitis with acute sjsbisafxgtb35/04/2024 Hypothyroidism (acquired)08/23/20231567Eybobiuzmypt04/29/2023Major depressive disorder with single episode, in partial icrjizmpb92/29/2023Erectile dysfunction 12/09/2011 Resolved Problems ProblemNoted DateDiagnosed DateResolved DateBipolar ichywqfyf07/07/2025 05/01/2025 Encounters DateTypeDepartmentCare OoucQvomixjooea96/04/2025Patient Risk Score [facility] Care Management [address] [place] [address] from Last 3 Months Social History Tobacco UseTypesPacks/DayYears UsedDateSmoking Tobacco: FormerCigarettes Smokeless Tobacco: Never Tobacco Cessation:Counseling Given: Not Answered Alcohol UseStandard Drinks/WeekCommentsYes0 (1 standard drink = 0.6 oz pure alcohol)very little - occasionallyPHQ-2AnswerDate RecordedPatient Health Questionnaire-2 Scdbo317Sex and Gender InformationValueDate RecordedSex Assigned at BirthNot on fileLegal WajVcqa28/26/2022 12:46 AM ESTGender Identity Not on fileSexual OrientationNot on file Last Filed Vital Signs Vital SignReadingTime TakenCommentsBlood Lawrzema330/7408 9:42 AM EDT Hgswz8180/07/2025 9:42 AM VIBHmvswhnzzjq96.3 ??C (97.4 ??F)05/01/2025 9:42 AM EDTRespiratory Rate--Oxygen Olehaumfrh09%05/01/2025 9:42 AM EDTInhaled Oxygen Concentration--Mdbpee99.3 kg (199 lb)05/01/2025 9:42 AM CTYJccomo997.8 cm (5' 10 )05/01/2025 9:42 AM EDTBody Mass Index28.5508 9:42 AM EDT Plan of Treatment Health MaintenanceDue DateLast DoneCommentsCT Kpmylcfbmvsg20/29/1956Diabetes: Hemoglobin A1C1955Diabetes: Urine Protein Jlbadshrv76/29/1956FIT-DNA (Cologuard)1955FIT1955Lipid Panel1955TSH Level1955Yearly Adult Oudsoxeh84/29/1956MMR Vaccines (1 of 1 - Standard series)11/22/1956 Diabetes: Retinopathy Tiggnzlrh76/28/1966Hepatitis C Sdllbbxvx18/28/1974 Pneumococcal Vaccine (1 of 2 - PCV)11/22/1974PSA Prostate Cancer Screening 11/22/2005Zoster Vaccines (1 of 2)11/22/2005bdominal Aortic Aneurysm (AAA) Dpiaampuz08/28/8553Nqjpxzshfabrp11/21/202309/DTaP/Tdap/Td Vaccines (2 - Td or Tdap)504/Influenza Vaccine (#1)0/, 06/01/2023, 07/25/2022, Additional history existsCOVID-19 Vaccine ( season)/, 10/14/2024, 04/14/2024, Additional history exists Grlazbdlpyj10/28/203402/, 02/06/2015, 01/20/2015Colorectal Cancer Btwkwgoly74/28/2034SV High Risk: (Elderly (60+) or Population) Sifubuuzb32/06/2023HIB VaccinesAged OutNo longer eligible based on patient's age to complete this topicHPV VaccinesAged OutNo longer eligible based on patient's age to complete this topicHepatitis A VaccinesAged OutNo longer eligible based on patient's age to complete this topicHepatitis B VaccinesAged OutNo longer eligible based on patient's age to complete this topicIPV VaccinesAged OutNo longer eligible based on patient's age to complete this topicMeningococcal VaccineAged OutNo longer eligible based on patient's age to complete this topic Rotavirus VaccinesAged OutNo longer eligible based on patient's age to complete this topic Insurance Care Teams Team MemberRelationshipSpecialtyStart DateEnd Date Dequan West DO [address] [place] [address] PCP - GeneralFamily Medicine05/01/25 Dequan West DO [address] [place] [address] PCP - MMO ACO PCP05/26/25
--- OUTSIDE RECORDS SUMMARY | 2025-08-18 11:18 | XMS_ITS | Clinical Summary ---
Author Organization [facility] Address [address] [place] [address] Care Team Providers Care Yeast Stacker Name Role Phone Sabine Verde NP Unavailable [phone] Manohar Adorno MD Primary Care Provider [phone] Allergies Active AllergyReactionsCriticalityNoted DateCommentsCodeineGI intolerance 09/28/2011Egg Protein (Egg White)Cough09/28/2011 dairy, wheat, grains, peanuts, barley, Flu shot ok HydrocodoneGI sdwiacesfoyZsivzy68/29/2023Iodinated Contrast MediaAnaphylaxisHigh 08/23/2023 Medications MedicationSigDispense QuantityRefillsLast FilledStart DateEnd DateStatus ibuprofen 600 MG tablet Take 600 mg by mouth every 12 (twelve) hours if needed for mild pain.Active SUMAtriptan (Imitrex) 25 MG tablet Take 25 mg by mouth if needed for migraine. May repeat dose once in 2 hours if no relief. Do not exceed 2 doses in 24 hours.Active pimecrolimus (Elidel) 1 % cream 1 (one) time each day at the same time10/11/2022ctive albuterol (2.5 MG/3ML) 0.083% nebulizer solution Indications:Asthmatic bronchitis with acute exacerbation, unspecified asthma severity, unspecified whether persistent (HCC)USE 1 VIAL VIA NEBULIZER EVERY 8 HOURS NEEDED FOR WHEEZING OR SHORTNESS OF BREATH 825 mL 04/29/2024ctive hyoscyamine (Levsin/SL) 0.125 MG SL tablet Indications:GastroenteritisTake 1 tablet (0.125 mg) by mouth every 6 (six) hours if needed for cramping for up to 7 days 28 tablet 4Active hydrocortisone 2.5 % cream Indications:Other atopic dermatitisApply to face bid prn for flares, hold then clear/30 days 30 g 5Active triamcinolone (Kenalog) 0.1 % cream Indications:Other atopic dermatitisApply to hands and legs BID prn when flared. Hold when skin is smooth/asymptomatic. Do not use on the face, neck. Armpits or groin/30 days 80 g 5Active amitriptyline (Elavil) 10 MG tablet Indications:MDD (major depressive disorder), single episode, in partial remissionTake 1 tablet (10 mg) by mouth at bedtime 90 tablet tive atorvastatin (Lipitor) 40 MG tablet Indications:Screening for prostate cancerTake 1 tablet (40 mg) by mouth at bedtime 90 tablet 5Active buPROPion XL (Wellbutrin XL) 300 MG 24 hr tablet Indications:MDD (major depressive disorder), single episode, in partial remissionTake 1 tablet (300 mg) by mouth in the morning. 90 tablet 5Active cetirizine ([facility] Allergy Relief,Cetirizine,) 10 MG tablet Indications:Seasonal allergiesTake 1 tablet (10 mg) by mouth in the morning. 90 tablet 5Active levothyroxine (Synthroid, Levoxyl) 88 MCG tablet Indications:Hypothyroidism (acquired)Take 1 tablet (88 mcg) by mouth in the morning. Take before meals. 90 tablet tive lisinopril 10 MG tablet Indications:Primary hypertensionTake 1 tablet (10 mg) by mouth in the morning. 90 tablet 5Active metFORMIN (Glucophage) 500 MG tablet Indications:Pre-diabetesTake 1 tablet (500 mg) by mouth in the morning and 1 tablet (500 mg) in the evening. Take with meals. 180 tablet 5Active montelukast (Singulair) 10 MG tablet Indications:Seasonal allergiesTake 1 tablet (10 mg) by mouth at bedtime 90 tablet 5Active omeprazole (PriLOSEC) [address] capsule Indications:Gastroesophageal reflux disease without esophagitisTake 1 capsule (20 mg) by mouth in the morning. Take before meals. Do not crush or chew. 90 capsule 5Active sildenafil (Viagra) 100 MG tablet Indications:Erectile dysfunction, unspecified erectile dysfunction typeTake 1 tablet (100 mg) by mouth Daily as needed for erectile dysfunction Take 1 hour prior to sexual activity 30 tablet 5Active albuterol HFA 90 mcg/act inhaler Indications:Mild intermittent asthma without complication (HCC)Inhale 2 puffs every 6 (six) hours if needed for wheezing or shortness of breath 6.7 g 5Active Active Problems ProblemNoted DateDiagnosed DateHammer toe of left foot04/28/2025 Assessment & Plan (04/28/2025 9:02 PM EDT): Refer to podiatry Tremors of nervous hlysxh5012/30/2024 Assessment & Plan (12/31/2024 7:56 AM EDT): Will refer to neurology Family history of celiac gogdhpa7510/28/2024 Assessment & Plan (10/28/2024 6:26 PM EST): Wants to keep working on diet, will fu in 01/17 then will consider a referral to GI at [facility] Type 2 diabetes mellitus without complication, without long-term current use of gwzmjdv6809/13/2024 Assessment & Plan (04/28/2025 8:58 PM EDT): Check blood sugars daily, notify if <70 or >200. Take medications (pills or insulin) as directed. Monitor for s/s of hypoglycemia (sweaty, dizziness, nausea, vomiting, or shakiness). Watch for increase in thirst, urination, or appetite. Inspect feet frequently monitoring for open wounds , andalso recommend yearly eye exam. Pt should attempt to remain as physically active as chronic conditions allow, as well as trying to follow a diet low in carbohydrates, and simple sugars. Current meds: statin, metfromin Most recent A1c: 6.0% 04/28/25, 6.0% 12/30/24 Weight loss: 37 pounds in last 8 months Lower metformin to 1 pill daily Assessment & Plan (12/30/2024 5:53 PM EDT): Check blood sugars daily, notify if <70 or >200. Take medications (pills or insulin) as directed. Monitor for s/s of hypoglycemia (sweaty, dizziness, nausea, vomiting, or shakiness). Watch for increase in thirst, urination, or appetite. Inspect feet frequently monitoring for open wounds , andalso recommend yearly eye exam. Pt should attempt to remain as physically active as chronic conditions allow, as well as trying to follow a diet low in carbohydrates, and simple sugars. Current meds: statin, metfromin Most recent A1c: 6.0% 12/30/24 Weight loss: 25 pounds in last 4 months Assessment & Plan (10/28/2024 5:49 PM EST): Check blood sugars daily, notify if <70 or >200. Take medications (pills or insulin) as directed. Monitor for s/s of hypoglycemia (sweaty, dizziness, nausea, vomiting, or shakiness). Watch for increase in thirst, urination, or appetite. Inspect feet frequently monitoring for open wounds , andalso recommend yearly eye exam. Pt should attempt to remain as physically active as chronic conditions allow, as well as trying to follow a diet low in carbohydrates, and simple sugars. Current meds: statin, metfromin Most recent A1c: 6.6% 09/13/24 Weight loss: 18 pounds since last visit Assessment & Plan (09/23/2024 7:44 AM EST): Check blood sugars daily, notify if <70 or >200. Take medications (pills or insulin) as directed. Monitor for s/s of hypoglycemia (sweaty, dizziness, nausea, vomiting, or shakiness). Watch for increase in thirst, urination, or appetite. Inspect feet frequently monitoring for open wounds , andalso recommend yearly eye exam. Pt should attempt to remain as physically active as chronic conditions allow, as well as trying to follow a diet low in carbohydrates, and simple sugars. Current meds: statin, metfromin Most recent A1c: 6.6% 09/13/24 Kidney stone on right side09/13/2024 Assessment & Plan (10/28/2024 6:24 PM EST): Does not have any current sxs, UA in 09/17 no blood present, will monitor at this time Assessment & Plan (09/23/2024 11:09 PM EST): No current sxs, will check KUB RUQ pain08/27/2024 Assessment & Plan (09/24/2024 9:06 AM EST): Since last visit has had GBUS, HIDA was ordered and to date note done I did verify with [facility] Med at [facility], no issues with HIDA and contrast dye Nausea & mjtligjr10/02/2024 Assessment & Plan (08/26/2024 5:48 PM EST): Zofran prn 2 oz fluids, hourly as tolerated Advanced diet as tolerated Encounter for wellness examination in adult07/17/2024Screening for prostate vzhtpm9707/17/2024 Overview (09/13/2024): 09/13/24 0.84 Needs flu shot07/17/2024Gastroesophageal reflux disease without esophagitis 07/17/2024 Assessment & Plan (04/28/2025 7:43 AM EDT): Recommendations: freq small meals, nothing to eat or drink at least 2 hours prior to bed, limit caffeine, alcohol, as well as spicy foods Meds to limit or avoid if possible: NSAIDS Elevate HOB if possible Prn dose omeprazole Assessment & Plan (10/28/2024 6:24 PM EST): Recommendations: freq small meals, nothing to eat or drink at least 2 hours prior to bed, limit caffeine, alcohol, as well as spicy foods Meds to limit or avoid if possible: NSAIDS Elevate HOB if possible Prn dose omeprazole Assessment & Plan (07/17/2024 3:18 PM EDT): Freq small meals, avoid caffeine, aviod food and drink 2 hours prior to HS Stop pepcid, we will trial omeprazole Fu in 6 weeks Thoracic spine pain07/17/2024 Assessment & Plan (07/17/2024 3:20 PM EDT): Possible cause of the pleuritic pain? Radiculopathy Agjgvfbtqutjmsj42/02/2024 Assessment & Plan (08/26/2024 5:48 PM EST): Fluids, rest Treat symptoms, check of COVID No signs of acute abd Assessment & Plan (01/25/2024 3:21 PM EDT): Meds to treat for symptoms No s/s acute abd, no acute abd Hydration, bland diet, if worsening in symptoms go to Er Call office on Monday if not better Ojzxphvjte96/28/3206DNYIM39/12/7026Jvpeqkes06/15/2024 Assessment & Plan (07/17/2024 3:20 PM EDT): Hx of collapsed lungs Hx of pnuemonia Cyivyn3911/09/2023 Assessment & Plan (03/18/2024 2:27 PM EDT): Was at [facility] last week, super hot/humid breathing was heavier, now seems to be better No changes in meds/doses Allergic bronchopulmonary xxjadoqxdehru46/15/2024 Assessment & Plan (10/28/2024 6:23 PM EST): Has had in the past Was on steroids in the past for this Assessment & Plan (09/23/2024 11:05 PM EST): Has had in the past Was on steroids in the past for this Inguinal mceepe0011/09/2023Male erectile dysfunction, lusfgmdzlts80/15/2024 Assessment & Plan (04/28/2025 8:59 PM EDT): Will trial viagra Assessment & Plan (10/28/2024 7:23 AM EST): Current med: cialis Visual inybrbxtqf04/15/9998Szslwiafphawev66/15/2024topic dermatitis, pfuidlbxdog07/15/2024PH with urinary bxmhhckepzu91/15/2024 Assessment & Plan (07/18/2024 7:39 AM EDT): After visit was over, pt came back to providers offices, states he forgot to bring up urinary issues: Nocturia, dribbling, urgency, no weak stream Is there something I can take Will trial flomax 0.4mg at hs Keep fu appt Tzuuegdzsmwwdk44/15/2024History of colonic wpmtrx8711/09/2023 Assessment & Plan (11/16/2023 6:24 PM EST): Having colonoscopy at end of the month Vhjlhwpker57/16/2024Obesity (BMI 30-39.9)09/28/2023 Assessment & Plan (12/30/2024 5:47 PM EDT): Discussed with patient their BMI (actual, verses recommended). We have also discussed lifestyle modifications: attempts to perform physical activity as chronic conditions allow, also to monitor dietary intake: increasing protein/fruits/veggies and lowering carb intake (unless contraindicated). Limit sodas, juices, and sugary drinks. Doing well with weight loss, has lost about 25 pounds in last 4 months Assessment & Plan (10/28/2024 5:49 PM EST): Discussed with patient their BMI (actual, verses recommended). We have also discussed lifestyle modifications: attempts to perform physical activity as chronic conditions allow, also to monitor dietary intake: increasing protein/fruits/veggies and lowering carb intake (unless contraindicated). Limit sodas, juices, and sugary drinks. Doing well with weight loss, has lost about 18 pounds since last visit Assessment & Plan (09/24/2024 9:11 AM EST): Discussed with patient their BMI (actual, verses recommended). We have also discussed lifestyle modifications: attempts to perform physical activity as chronic conditions allow, also to monitor dietary intake: increasing protein/fruits/veggies and lowering carb intake (unless contraindicated). Limit sodas, juices, and sugary drinks. Asthmatic bronchitis with acute abznbqtbstxu56/04/2024 Assessment & Plan (09/24/2024 9:10 AM EST): At this point pt is wheezing expiratory, no inspiratory. Will hold on atb Start prednisone, check in in 2 days to see if better Pt was hesitant about no atb, I did explain atb stewardship, many viruses going around right now, Idid offer to test for COVID and flu, but also explained that d/t onset of symptoms he is outside the window to treat. He declined at this time for that. I have encouraged fluids, rest, start steroids, he also had a spiriva respimat 2.5 that a friend gave him, pt himself has had a 1.25 dose he uses prn, asked if he could use the 2.5 , I said he could try it, as well as continue with albuterol prn as well. If resp distress occurs, go to Er, I will place call to check in on status on 09/26/24 Pt agrees to this Assessment & Plan (11/16/2023 6:23 PM EST): Symptoms have improved with atb and steroids Feeling better, still w some use of nebulizer, but improved Screening for colon ggyivq5109/28/2023 Assessment & Plan (09/28/2023 3:22 PM EST): Last colonoscopy in 2018, was told needed them every 5 years Will refer to Dr Arriaza Zzuhhawtwulup60/19/2023Major depressive disorder with single episode, in partial aeqcfxjkq16/29/2023 Assessment & Plan (04/28/2025 7:44 AM EDT): Feels wellbutrin XL 300mg doing ok Assessment & Plan (07/17/2024 3:11 PM EDT): Feels wellbutrin XL 300mg doing ok Assessment & Plan (11/16/2023 6:24 PM EST): Doing well on current regimine, no changes to med dose Assessment & Plan (08/23/2023 4:54 PM EST): Doing well on current regimine, no changes to med dose Hypothyroidism (acquired)08/23/2023 Assessment & Plan (04/28/2025 7:44 AM EDT): On levothyroxine Check labs yearly and prn dose changes or changes in sxs Assessment & Plan (03/18/2024 2:29 PM EDT): Does have excessive sweating, unsure if he is having side effect med, or just his normal Check TSH Assessment & Plan (08/23/2023 4:53 PM EST): Check labs no changes in doses of meds Arqpfhxvxabm97/29/2023 Assessment & Plan (04/28/2025 7:43 AM EDT): Please check blood pressure daily and record DASH diet Limit caffeine Take medication as directed Contact office if chest pain, pressure, dizziness, shortness of breath, swelling legs Recommend slow position changes Current med: lisinopril Assessment & Plan (12/30/2024 5:46 PM EDT): Please check blood pressure daily and record DASH diet Limit caffeine Take medication as directed Contact office if chest pain, pressure, dizziness, shortness of breath, swelling legs Recommend slow position changes Current med: lisinopril Assessment & Plan (10/28/2024 6:23 PM EST): Please check blood pressure daily and record DASH diet Limit caffeine Take medication as directed Contact office if chest pain, pressure, dizziness, shortness of breath, swelling legs Recommend slow position changes Current med: lisinopril Assessment & Plan (09/24/2024 9:11 AM EST): Please check blood pressure daily and record DASH diet Limit caffeine Take medication as directed Contact office if chest pain, pressure, dizziness, shortness of breath, swelling legs Recommend slow position changes Current med: lisinopril Assessment & Plan (07/17/2024 3:09 PM EDT): Please check blood pressure daily and record DASH diet Limit caffeine Take medication as directed Contact office if chest pain, pressure, dizziness, shortness of breath, swelling legs Recommend slow position changes Assessment & Plan (03/18/2024 2:29 PM EDT): No changes in med doses Needs to check labs Fu 4 months Assessment & Plan (11/16/2023 6:24 PM EST): Stable at this time, no changes to meds Assessment & Plan (08/23/2023 4:53 PM EST): Stable, cont current meds Check labs Fu in 3 months Resolved Problems ProblemNoted DateDiagnosed DateResolved DateURI (upper respiratory infection) /03/2025 Assessment & Plan (09/24/2024 9:13 AM EST): Differentials: flu/covid/RSV, other viruses No fever, at this time has intermittent colored secretions, we will hold on atb, start steroids Fluids, rest, if resp distress go to Er Fu call will be placed on 09/26/24 Elevated serum nmkadgl07/4Pre-sgvwkkyi52 Assessment & Plan (08/23/2023 4:54 PM EST): Check labs, recommend low sugar diet Exercises, freq foot checks and yearly eye exams Encounters DateTypeDepartmentCare ZywaNphbvfvezua75/20/2025Orders Only [facility] [address] [place] [id number] Alethea Ferro Preop horacxjybdw68/14/2025 11:00 AM ESTOffice Visit [facility] [address] [place] [address] Santos Hewitt DPM Acquired deformity of left toe (Primary Dx); Diabetes mellitus due to underlying condition with diabetic polyneuropathy, without long-term current use of insulin (HCC); Pain due to onychomycosis of toenails of both feet; Neoplasm of uncertain behavior of skin08/08/2025Telephone [facility] [address] [place] [address] Santos Hewitt DPM Xwjumetmq75/14/2025amboo flowsheet [facility] [address] [place] [address] Santos Hewitt DPM from Last 3 Months Immunizations ImmunizationAdministration DatesNext DueInfluenza, High-dose Seasonal, Quadrivalent, Preservative Free07/25/2022Influenza, Seasonal, Quadrivalent, Eubvjdvfdf64/07/2023Influenza, Bpqcrtujkid37/07/2023Influenza, seasonal, sjllwygypf38/01/2014Influenza, seasonal, injectable, preservative free07/07/2015 Influenza, trivalent, awsyhzpvuk43/23/2024RSV, recombinant, protein subunit RSVpreF, adjuvant reconstitu, 120mcg/0.5mL, PF (Arexvy)08/30/20231731NGET-PnG-6, Qitxzeupekw39/21/7556Potg12/28/2015 Family History Medical HistoryRelationNameCommentsCancerFatherHypertensionFatherAtrial fibrillationMotherHypertensionMotherRelationNameStatusCommentsFatherMother Social History Tobacco UseTypesPacks/DayYears UsedDateSmoking Tobacco: NeverSmokeless [...] relatives?Once a week11/02/2023How often do you attend hindu or latter-day services?More than 4 times per year11/02/2023o you belong to any clubs or organizations such as hindu groups, unions, fraSmartfield or athletic abilio ups, or school groups?Yes11/02/2023How often do you attend meetings of the clubs or organizations you belong to?More than 4 times per year11/02/2023re you , , , , never , or living with a partner? Vxxahuc0311/02/2023UDIT-CAnswerDate RecordedQ1: How often do you have a [...] hard at all11/02/2023HQ-2AnswerDate RecordedPatient Health Questionnaire-2 Score0 03/18/2024[facility] [place] of Occupational Health - Occupational Stress QuestionnaireAnswerDate [...] you engage in exercise at this level?10 min02/08/2024Hunger Vital SignAnswerDate Recorded Within the past 12 [...] steady place to sleep or slept in [facility] (including now)?No11/02/2023Sex and Gender InformationValue Date RecordedSex Assigned at BirthNot on fileLegal TadKgra2712/07/2022 11:47 PM EDTGender IdentityNot on fileSexual OrientationNot on file Last Filed Vital Signs Vital SignReadingTime TakenCommentsBlood Advwsvth957/7608 4:38 PM EDT Dcyry1057 4:38 PM EJDQqdjzwjoxqf06.6 ??C (97.8 ??F)04/28/2025 4:38 PM EDTRespiratory Wzfl862010/08/2024 11:18 AM ESTOxygen Kpfonryazt29%04/28/2025 4:38 PM EDTInhaled Oxygen Concentration--Uslzyt46.8 kg (198 lb)08/08/2025 11:18 AM UFINjqoez838.8 cm (5' 10 )08/08/2025 11:18 AM ESTBody Mass Index28.41110/08/2024 11:18 AM EST Plan of Treatment DateTypeDepartmentCare Team (Latest Contact Info)Kvazmnbqoit31/03/2025 3:50 PM ESTOffice Visit [facility] [address] [place] [address] Santos Hewitt DPM [address] [address] 09/10/2025 2:30 PM ESTOffice Visit [facility] [address] [place] [address] Santos Hewitt DPM [address] [address] 10/14/2025 12:40 PM ESTOffice Visit [facility] [address] [place] [id number] Hilda Reynaga, PA [address] [place] [address] 10/17/2025 11:40 AM ESTOffice Visit [facility] [address] [place] [address] Santos Hewitt DPM [address] [address] Health MaintenanceDue DateLast DoneCommentsCT Htwkgsyupcdu01/29/1956FIT-DNA 1955FIT1955FOBT1955 1784Oxdmwftpokqik70/29/1956Diabetes: Retinopathy Lbozqehop77/28/1966Diabetes: Urine Protein Slfhvyhhr24/28/1975COVID- 19 Vaccine (2 - Mixed Product risk series), 03/18/2025, 10/14/2024, Additional history existsDiabetes: Hemoglobin A1C07/29/2025 04/28/2025, 12/30/2024, 4040Adzvmzakjrq09, 01/20/2015 Colorectal Cancer Zgphpmtpm05/28/2029Pneumococcal Vaccine: 65+ YearsAddressed 2Overridden with the intention of not completing the topicInfluenza FzfathnSyjbyddql40/05/2025, 07/17/2024, 06/01/2023, Additional history exists Procedures Procedure NamePriorityDate/TimeAssociated DiagnosisCommentsPOCT GLYCOSYLATED HEMOGLOBIN (HGB A1C)Zswqfmk8204/28/2025 5:26 PM EDT Type 2 diabetes mellitus without complication, without long-term current use of insulin (HCC) from Last 3 Months or Most Recently Relevant to Health Maintenance Results * (ABNORMAL) POCT glycosylated hemoglobin (Hb A1C) docked device (04/28/2025 5:26 PM EDT)ComponentValueRef RangeTest MethodAnalysis TimePerformed At Pathologist SignatureHemoglobin A1C6.0Specimen (Source)Anatomical Location / LateralityCollection Method / VolumeCollection TimeReceived TimeBloodVenous blood specimen / Qzwnvns5104/28/2025 5:26 PM EDT Narrative Authorizing ProviderResult TypeResult StatusLisa Frankiegeisinger st. luke's hospitalalise NPPOINT OF CARE TEST ENTER/EDIT ORDERABLESFinal Result from Last 3 Months or Most Recently Relevant to Health Maintenance Insurance Care Teams Team MemberRelationshipSpecialtyStart DateEnd Date Manohar Adorno MD [address] [place] [phone] PCP - GeneralFamily Tjkgwifw42/31/24 Sabine Verde NP [address] [place] [phone] Nurse PractitionerFaspaulding hospital cambridge Ayrccpzb83/29/23
--- OUTSIDE RECORDS SUMMARY | 2025-08-18 11:18 | XMS_ITS | Clinical Summary ---
Author Organization [facility] Address [address] [place] [id number] Care Team Providers Care Cadastral Surveyor Name Role Phone Unavailable Primary Care Provider Unavailabl e Allergies Active AllergyReactionsCriticalityNoted DateCommentsCodeineGI Upset09/28/2011Egg NpitlLrwlw99/04/2012 dairy, wheat, grains, peanuts, barley, Flu shot ok Contrast DyeShortness of Bqeqqp0503/29/2013 Medications MedicationSigDispense QuantityRefillsLast FilledStart DateEnd DateStatus cetirizine (ZYRTEC) 10 mg ORAL tablet Take 1 tablet by mouth once daily.ctive PROAIR HFA 90 mcg/actuation inhaler Inhale 2 Puffs as instructed every 4 hours as needed. 3 Inhaler Active SPIRIVA RESPIMAT 1.25 mcg/actuation mist Inhale 1.25 mcg as instructed once daily. 3 Inhaler Active fluocinonide (LIDEX) 0.05 % cream Apply 1 application to affected area twice daily. No longer than 5 days in a row per week days 60 g Active crisaborole (EUCRISA) 2 % oint Apply 1 application to affected area once daily. 60 g Active efinaconazole (JUBLIA) 10 % irene Apply 1 application to affected area once daily. 8 Bottle Active levothyroxine (SYNTHROID) 50 mcg tablet Take 1 tablet by mouth once daily. 90 tablet Active SYMBICORT 160-4.5 mcg/actuation inhaler Inhale 2 Puffs as instructed twice daily. 3 Inhaler 08/27/2018Active montelukast (SINGULAIR) 10 mg tablet TAKE 1 TABLET BY MOUTH AT BEDTIME 90 tablet 12/12/2018Active Active Problems ProblemNoted DateDiagnosed DateXerosis of skin06/21/20165679Znqxkovhwr01/27/2016 Family history of malignant neoplasm of gastrointestinal tract02/06/2015Erectile vnzbrylfzvk86/16/2012Contact dermatitis and other eczema, due to unspecified cause11/04/2011BPA (allergic bronchopulmonary aspergillosis) Overview (12/09/2011): stable since 2002 GERD (gastroesophageal reflux disease) Overview (12/09/2011): s/p surgery, Bipolar affective Immunizations ImmunizationAdministration DatesNext Dueinfluenza (IIV3) vaccine, age 6 mo - 64 yr, trivalent (AFLURIA, FLULAVAL, FLUVIRIN, FLUZONE)07/26/2014tetanus diphtheria pertussis (Tdap) vaccine, age 7+ yr (ADACEL, BOOSTRIX)01/20/2015 Family History Medical HistoryRelationCommentsColon CancerFathercould be ductalHypertension FatherAlzheimer's DiseaseMaternal GrandfatherStrokeMotheratrial fibMother RelationStatusCommentsFatherMaternal GrandfatherMother Social History Tobacco UseTypesPacks/DayYears UsedDateSmoking Tobacco: FormerCigarettes1.56 09/25/1969 - 09/25/1975Smokeless Tobacco: Never Tobacco Cessation:Counseling Given: Yes Alcohol UseStandard Drinks/WeekCommentsNo0 (1 standard drink = 0.6 oz pure alcohol)Area Deprivation IndexAnswerDate RecordedNational Score (1-100), lower number is lower riskNot on file08/30/2020State Score (1-10), lower number is lower riskNot on file08/30/2020Data from: https://www.neighborhoodatlas.medicine.[facility].edu/. Last address used for calculationNot on file08/30/2020Sex and Gender InformationValueDate RecordedSex Assigned at BirthNot on fileLegal ZpeEufm23/02/2012 10:13 AM ESTGender Identity Not on fileSexual OrientationNot on fileOccupationIndustryJob Start DateJob End DatePASTORNot on fileNot on fileNot on file Last Filed Vital Signs Vital SignReadingTime TakenCommentsBlood Pxsyyltx618/8802/22/2018 3:16 PM EDT Gvfgu046302/22/2018 3:16 PM UNDJagklrykhcl88.8 ??C (98.2 ??F)02/22/2018 3:16 PM EDTRespiratory Xytk906302/06/2015 11:33 AM EDTOxygen Ehjxndydxe45%02/22/2018 3:16 PM EDTInhaled Oxygen Concentration--Sgibbz525.6 kg (224 lb)02/22/2018 3:16 PM PTHFxrfbe285.3 cm (5' 9 )02/22/2018 3:16 PM EDTBody Mass Index33.0802/22/2018 3:16 PM EDT Plan of Treatment Health MaintenanceDue DateLast DoneCommentsAbdominal Aortic Aneurysm Screening 6Anxiety Njldhqfrb22/28/1974Depression Wxpdontqt73/28/1974CT Tqqcnltblgqt64/28/2001Cologuard (FIT-DNA)11/22/2000Fecal Occult Blood11/22/2000 Mbgxndkeiuwca07/28/2001Pneumococcal Vaccine: 50+ (1 of 1 - PCV)11/22/2005 Shingrix Vaccine (1 of 2)11/22/20052274Jpojkwzntvg54, 02/06/2015, 03/29/2008Colorectal Cancer Gsobtyqpg40/15/2018Diabetes Fjujymcsy73/26/2020 09/19/2017, 03/30/2013, 10/18/2011Lipid Gvyrgdnhc76, 03/30/2013, 10/18/2011dvance Directive Vsmopbdisi94/01/2025DTaP,Tdap,Td Vaccine (2 - Td or Tdap)Covid-19 Vaccine (1 - season) 2025Influenza Vaccine (#1), 07/26/2014RSV Vaccine (1 - 1-dose 75+ series)11/22/2030Hepatitis C UxudzviukXafbswqwz13/01/2010 Procedures Procedure NamePriorityDate/TimeAssociated DiagnosisCommentsCMP (CMP) (FOR REMOTE [facility] USE)Fkcbomf7609/19/2017 2:32 PM EST Routine general medical examination at a health care facility LIPID PANEL (LIPB) (FOR REMOTE [facility] USE)Fvkghkc7609/19/2017 2:32 PM EST Screening, lipid COLONOSCOPY, SCREENING, HIGH JRHBZobbwzt52/15/2015 10:46 AM EDT Family history of colon cancer from Last 3 Months or Most Recently Relevant to Health Maintenance Results * LIPID PANEL (LIPB) (FOR REMOTE [facility] USE) (09/19/2017 2:32 PM EST)ComponentValue Ref RangeTest MethodAnalysis TimePerformed AtPathologist SignatureTriglyceride 04555 - 149 mg/dL09/19/2017 3:01 PM [facility]SH[facility]CCholesterol, Izmoc747 100 - 199 mg/dL09/19/2017 3:01 PM ESTSH[facility]ITALCHDL Xjnbqaoxzfu43>45 mg/dL09/19/2017 3:01 PM [facility] Fxeelrsmyuu445 - 40 mg/dL 09/19/2017 3:01 PM [facility]DL Cholesterol, Gmpnditzpg70611 - 129 mg/dL09/19/2017 3:01 PM [facility]CFasting Dihb5mir15/26/2017 2:29 PM [facility] FHCTC:HDL Ratio4.261.00 - 5.00111/20/2016 3:01 PM EST SOD FHCLDL:HDL Ratio2.650.50 - 3.5509/19/2017 3:01 PM ESTSH[facility]ITALCNon HDL Rdfeecxwfpa15844 - 159 mg/dL09/19/2017 3:01 PM [facility] BAYCSpecimen (Source)Anatomical Location / LateralityCollection Method / VolumeCollection TimeReceived TimeBlood specimen (specimen)BLOOD SPECIMEN / Wblkmvk7609/19/2017 2:32 PM EST09/19/2017 2:34 PM EST Narrative Authorizing ProviderResult TypeResult StatusMelanie Makeda Plata APRN.CNPLABORATORY Final ResultPerforming OrganizationAddressCity/State/ZIP CodePhone Number [facility] [address] [place] [address] * (ABNORMAL) CMP (CMP) (FOR REMOTE [facility] USE) (09/19/2017 2:32 PM EST)Component ValueRef RangeTest MethodAnalysis TimePerformed AtPathologist Signature Protein, Total7.36.3 - 8.0 g/dL09/19/2017 3:01 PM [facility] FHCAlbumin 4.23.9 - 4.9 g/dL09/19/2017 3:01 PM [facility]SH[facility]ITALCCalcium9.18.5 - 10.2 mg/dL09/19/2017 3:01 PM [facility]SH[facility]ITALCBilirubin, Total0.50.2 - 1.3 mg/dL09/19/2017 3:01 PM [facility]CAlkaline Zhknidoobpa3970 - 108 U/L111/20/2016 3:01 PM [facility]SH[facility]ITALCAST1414 - 40 U/L111/20/2016 3:01 PM [facility]CGlucose111(H)74 - 99 mg/dL09/19/2017 3:01 PM [facility]AYCBUN149 - 24 mg/dL09/19/2017 3:01 PM [facility]CCreatinine 0.940.73 - 1.22 mg/dL09/19/2017 3:01 PM [facility]CSodium143136 - 144 mmol/L111/20/2016 3:01 PM [facility]CPotassium4.03.7 - 5.1 mmol/L 09/19/2017 3:01 PM [facility]AYCChloride10497 - 105 mmol/L111/20/2016 3:01 PM [facility]SH[facility]ITALCCO22722 - 30 mmol/L111/20/2016 3:01 PM EST [facility]CAnion Ulb318 - 18 mmol/L111/20/2016 3:01 PM [facility]SH[facility]ITALCALT1310 - 54 U/L111/20/2016 3:01 PM [facility] FHCeGFR->6009/19/2017 3:01 PM [facility] BAYCeGFR-All Other Races>60. 09/19/2017 3:01 PM [facility] BAYCComment: eGFR (Estimated GFR) Units of measure: mL/min/1.73 meters squared eGFR is derived from the reexpressed MDRD Study equation using the following parameters: serum creatinine, age, gender and race. The creatinine assay has been calibrated to be traceable to IDMS. An eGFR <60 mL/min/1.73m2 for >3 months is consistent with chronic kidney disease. Refer to KDOQI guidelines for clinical interpretation. In patients with unstable renal function, e.g. those with acute kidney injury, the eGFR may not accurately reflect actual GFR. Specimen (Source)Anatomical Location / LateralityCollection Method / Volume Collection TimeReceived TimeBlood specimen (specimen)BLOOD SPECIMEN / Unknown 09/19/2017 2:32 PM EST09/19/2017 2:34 PM EST Narrative Authorizing ProviderResult TypeResult StatusMelanie A Boni FOAM DISPENSER.CNPLABORATORY Final ResultPerforming OrganizationAddressCity/State/ZIP CodePhone Number [facility] [address] [place] [address] * COLONOSCOPY, SCREENING, HIGH RISK (02/06/2015 10:46 AM EDT)ComponentValueRef RangeTest MethodAnalysis TimePerformed AtPathologist SignatureTranscription [facility] Patient Name: Jay Chandler Procedure Date: 02/06/2015 10:46 AM Date of : 1955 Admit Type: Outpatient Age: 59 Gender: Male Note Status: Finalized Procedure: ? Colonoscopy Indications: ? High risk colon cancer surveillance: Personal history of ? colonic polyps, Family history of colon cancer in a ? first-degree relative Providers: ? Yousif Fermin MD, Juanis Nixon, Julissa Haq Patient Profile: ? This is a 59 year old male. Refer to note in patient ? chart for documentation of history and physical. Last ? Colonoscopy: several years ago. Referring Physician: Thea Castellon MD (Referring MD) Medicines: ? Midazolam 4 mg IV, Meperidine 75 mg IV Complications: ? No immediate complications. Requesting Provider: Procedure: ? Pre-Anesthesia Assessment: ? - Prior to the procedure, a History and Physical was ? performed, and patient medications and allergies were ? reviewed. The patient is competent. The risks and ? benefits of the procedure and the sedation options and ? risks were discussed with the patient. All questions ? were answered and informed consent was obtained. Patient ? identification and proposed procedure were verified by ? the physician and the nurse in the pre-procedure area. ? Mental Status Examination: alert and oriented. Airway ? Examination: normal oropharyngeal airway and neck ? mobility. Respiratory Examination: clear to ? auscultation. CV Examination: normal. Prophylactic ? Antibiotics: The patient does not require prophylactic ? antibiotics. Prior Anticoagulants: The patient has taken ? no previous anticoagulant or antiplatelet agents. ASA ? Grade Assessment: II - A patient with mild systemic ? disease. After reviewing the risks and benefits, the ? patient was deemed in satisfactory condition to undergo ? the procedure. The anesthesia plan was to use moderate ? sedation / analgesia (conscious sedation). Immediately ? prior to administration of medications, the patient was ? re-assessed for adequacy to receive sedatives. The heart ? rate, respiratory rate, oxygen saturations, blood ? pressure, adequacy of pulmonary ventilation, and ? response to care were monitored throughout the ? procedure. The physical status of the patient was ? re-assessed after the procedure. ? After I obtained informed consent, the scope was passed ? under direct vision. Throughout the procedure, the ? patient's blood pressure, pulse, and oxygen saturations ? were monitored continuously. The Colonoscope was ? introduced through the anus and advanced to the cecum, ? identified by appendiceal orifice and ileocecal valve. ? The colonoscopy was performed without difficulty. The ? patient tolerated the procedure well. The quality of the ? bowel preparation was good. The ileocecal valve, the ? appendiceal orifice and the rectum were photographed. Findings: ? The perianal and digital rectal examinations were normal. ? A 8 mm polyp was found in the ascending colon. The polyp was sessile. ? The polyp was removed with a hot snare. Resection and retrieval were ? complete. Verification of patient identification for the specimen was ? done. Estimated blood loss was minimal. ? Non-bleeding internal hemorrhoids were found during retroflexion. The ? hemorrhoids were Grade II (internal hemorrhoids that prolapse but reduce ? spontaneously). ? A few small-mouthed diverticula were found in the sigmoid colon. There ? was no evidence of diverticular bleeding. Impression: ?- One 8 mm polyp in the ascending colon. Resected and ? retrieved. ? - Non-bleeding internal hemorrhoids. ? - Diverticulosis in the sigmoid colon. There was no ? evidence of diverticular bleeding. Recommendation: ?- Patient has a contact number available for ? emergencies. The signs and symptoms of potential delayed ? complications were discussed with the patient. Return to ? normal activities tomorrow. Written discharge ? instructions were provided to the patient. ? - Resume previous diet. ? - Continue present medications. ? - Repeat colonoscopy in 3 years for surveillance. ? - Return to referring physician. Attending Participation: ? I personally performed the entire procedure. Dr. Yousif Fermin M.D. Yousif Fermin MD 02/06/2015 11:11 AM This report has been signed electronically by Yousif Fermin MD Number of Addenda: 0 Note Initiated On: 02/06/2015 10:46 AM Procedure Start: 10:54:18 AM Procedure End: 11:08:02 [facility]IG[facility]EASE INSTITUTEAnatomical RegionLaterality ModalityOtherSpecimen (Source)Anatomical Location / LateralityCollection Method / VolumeCollection TimeReceived Time02/06/2015 10:46 AM EDT Narrative Authorizing ProviderResult TypeResult StatusMonica E Ravinder MDDIGESTIVE DISEASE Final Result from Last 3 Months or Most Recently Relevant to Health Maintenance Insurance * Guarantor: Jay Chandler AAccount TypeRelation to PatientDate of BirthPhone Billing [id number]/29/1956 [address] [place] [address] [address] [place] [address] * Guarantor: Jay Chandler TypeRelation to PatientDate of BirthPhone Billing IjgnlfrIgxeoewtOdol94/29/1956 [address] [place] [address]
--- OUTSIDE RECORDS SUMMARY | 2025-08-18 11:21 | XMS_ITS | CCD ---
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 (Bld) [Mass fraction]on 68-81-4141Cxnostpeayxgjs and review of laboratory resultsAbnormalChildren's Mercy [facility] HealthcareLaboratory - Hematology and Cell countson 81-40-5580BmA8d (Bld) [Mass fraction]6 %[facility] Medical CenterHbA1c (Bld) [Mass fraction]on 12-30-2024 Interpretation and review of laboratory resultsAbnormalNOMS HealthcareNOMS HealthcareLaboratory - Hematology and Cell countson 57-46-6226WxN9n (Bld) [Mass fraction]6.00 %[facility] HEPATOBILIARY SCAN W PHARMACOLOGICAL INTERVENTIONon 46-51-7013[address] [address] Nuclear Medicine Report Signed Patient: JAY CHANDLER MR#: [id number] : 1955 Acct:[id number] Age/Sex: 68 / M ADM Date: 10/04/24 Loc: [place] Attending Dr: Sabine Verde MANAGEMENT SERVICES TECHNICIAN Ordering Physician: Sabine Verde NP Date of Service: 10/04/24 Procedure(s): ND hepatobiliary w pharm Accession Number(s): [id number] cc: Sabine Verde NP [place] [address] Patient Name: JAY CHANDLER MRN: [id number] date: 1955 Sex: M Assigned Patient Location: ND Current Patient Location: ND Accession/Order Number: [id number] Exam Date: 10/04/2024 10:15 Report Date: 10/04/2024 13:59 At the request of: SABINE VERDE Procedure: ND hepatobiliary w pharm EXAMINATION: ND hepatobiliary w pharm HISTORY: RUQ PAIN COMPARISON: No relevant comparison available. TECHNIQUE: Radionuclide hepatobiliary imaging was performed after intravenous injection of 4.6 mCi Tc-99m AZAEL derivative with sequential acquisitions every 1 minute for one hour. Hepatobiliary imaging with gallbladder ejection fraction analysis was then performed with sequential imaging every 1 minute for 60 minutes following ingestion of 8 oz. Ensure Plus. FINDINGS: LIVER: Normal, prompt and uniform radiotracer uptake and clearing. BILIARY DUCTS: Normal radioisotopic biliary excretion. GALLBLADDER: Normal with no evidence of cystic duct obstruction. INTESTINE: Normal with no evidence of common biliary ductal obstruction. EJECTION FRACTION: 78 % within 60 minutes. (Normal EF > 38%). OTHER: Negative. ND/ND hepatobiliary w pharm IMPRESSION: 1. Normal nuclear medicine HIDA scan. Electronically authenticated by: ROLF CHAVES Date: 10/04/2024 13:59 Dictated By: Rolf Chaves M.D. Signed By: 10/04/24 1402 DD/ 1359 TD/TT: Flight Crew Ordnanceman:HOLLYadiologosiel, Radiologist, - 10/04/2024 [place] [address] Nuclear Medicine Report Signed Patient: JAY CHANDLER MR#: [id number] : 1955 Acct:[id number] Age/Sex: 68 / M ADM Date: 10/04/24 Loc: [place] Attending Dr: Sabine Verde NP Ordering Physician: Sabine Verde NP Date of Service: 10/04/24 Procedure(s): ND hepatobiliary w pharm Accession Number(s): [id number] cc: Sabine Verde NP [place] [address] Patient Name: JAY CHANDLER MRN: [id number] date: 1955 Sex: M Assigned Patient Location: ND Current Patient Location: ND Accession/Order Number: [id number] Exam Date: 10/04/2024 10:15 Report Date: 10/04/2024 13:59 At the request of: SABINE VERDE Procedure: NM hepatobiliary w pharm EXAMINATION: ND hepatobiliary w pharm HISTORY: RUQ PAIN COMPARISON: No relevant comparison available. TECHNIQUE: Radionuclide hepatobiliary imaging was performed after intravenous injection of 4.6 mCi Tc-99m AZAEL derivative with sequential acquisitions every 1 minute for one hour. Hepatobiliary imaging with gallbladder ejection fraction analysis was then performed with sequential imaging every 1 minute for 60 minutes following ingestion of 8 oz. Ensure Plus. FINDINGS: LIVER: Normal, prompt and uniform radiotracer uptake and clearing. BILIARY DUCTS: Normal radioisotopic biliary excretion. GALLBLADDER: Normal with no evidence of cystic duct obstruction. INTESTINE: Normal with no evidence of common biliary ductal obstruction. EJECTION FRACTION: 78 % within 60 minutes. (Normal EF > 38%). OTHER: Negative. NM/ND hepatobiliary w pharm IMPRESSION: 1. Normal nuclear medicine HIDA scan. Electronically authenticated by: ROLF CHAVES Date: 10/04/2024 13:59 Dictated By: Rolf Chaves M.D. Signed By: 10/04/24 1402 DD/ 1359 TD/TT: Flight Crew Ordnanceman: DE[facility]A HealthcareRadiology Study observation (narrative)[facility] HEPATOBILIARY SCAN W PHARMACOLOGICAL INTERVENTIONOrdered By: Radiologist Radiology on 91-27-8474YEJM Healthcare Work Phone: XR ABDOMEN MIN 2Von 80-54-1430[place] [address] XRay Report Signed Patient: JAY CHANDLER MR#: [id number] : 1955 Acct:[id number] Age/Sex: 68 / M ADM Date: 10/04/24 Loc: [place] Attending Dr: Sabine Verde NP Ordering Physician: Sabine Verde NP Date of Service: 10/04/24 Procedure(s): XR abdomen min 2V Accession Number(s): [id number] cc: Sabine Verde NP [place] [address] Patient Name: JAY CHANDLER MRN: [id number] date: 1955 Sex: M Assigned Patient Location: ND Current Patient Location: ND Accession/Order Number: [id number] Exam Date: 10/04/2024 10:40 Report Date: 10/04/2024 12:46 At the request of: SABINE VERDE Procedure: XR abdomen min 2V EXAMINATION: XR abdomen min 2V HISTORY: Kidney Stone Right Side COMPARISON: No relevant comparison available. FINDINGS: KIDNEY/URETER - RIGHT: No visible kidney stone. KIDNEY/URETER - LEFT: 4 mm stone projecting over inferior pole. PELVIS: 4 x 2 mm calcification within lower right pelvis; phleboliths versus distal ureteral stone. BOWEL: No abnormal dilation or deviation. BONES: No acute abnormality. OTHER: Numerous surgical anchors projecting over left pelvis. XR/XR abdomen min 2V IMPRESSION: 1. No visible stone within right kidney, but evaluation is limited by dense bowel content. 2. Phlebolith versus distal right ureteral stone. No comparison studies. 3. Nonobstructing left nephrolithiasis. Electronically authenticated by: ROLF CHAVES Date: 10/04/2024 12:46 Dictated By: Rolf Chaves M.D. Signed By: 10/04/24 1248 DD/ TD/TT: Flight Crew Ordnanceman:HOLLYadiolmoreno, Radiologist, - 10/04/2024 [place] [address] XRay Report Signed Patient: JAY CHANDLER MR#: [id number] : 1955 Acct:[id number] Age/Sex: 68 / M ADM Date: 10/04/24 Loc: [place] Attending Dr: Sabine Verde NP Ordering Physician: Sabine Verde NP Date of Service: 10/04/24 Procedure(s): XR abdomen min 2V Accession Number(s): [id number] cc: Sabine Verde NP [place] [address] Patient Name: JAY CHANDLER MRN: [id number] date: 1955 Sex: M Assigned Patient Location: ND Current Patient Location: ND Accession/Order Number: [id number] Exam Date: 10/04/2024 10:40 Report Date: 10/04/2024 12:46 At the request of: SABINE VERDE Procedure: XR abdomen min 2V EXAMINATION: XR abdomen min 2V HISTORY: Kidney Stone Right Side COMPARISON: No relevant comparison available. FINDINGS: KIDNEY/URETER - RIGHT: No visible kidney stone. KIDNEY/URETER - LEFT: 4 mm stone projecting over inferior pole. PELVIS: 4 x 2 mm calcification within lower right pelvis; phleboliths versus distal ureteral stone. BOWEL: No abnormal dilation or deviation. BONES: No acute abnormality. OTHER: Numerous surgical anchors projecting over left pelvis. XR/XR abdomen min 2V IMPRESSION: 1. No visible stone within right kidney, but evaluation is limited by dense bowel content. 2. Phlebolith versus distal right ureteral stone. No comparison studies. 3. Nonobstructing left nephrolithiasis. Electronically authenticated by: ROLF CHAVES Date: 10/04/2024 12:46 Dictated By: Rolf Chaves M.D. Signed By: 10/04/248 DD/ 45 TD/TT: Flight Crew Ordnanceman: DEBORA HealthcareRadiology Study observation (narrative)DEBORA HealthcareXR ABDOMEN MIN 2VOrdered By: Radiologist Radiology on 34-62-4306DPTJ Healthcare Work Phone: XR CHEST 2Von 59-42-2902[place], [place] [address] XRay Report Signed Patient: JAY CHANDLER MR#: [id number] : 1955 Acct:[id number] Age/Sex: 68 / M ADM Date: 09/21/24 Loc: [facility] Attending Dr: Sabine Verde NP Ordering Physician: Sabine Verde NP Date of Service: 09/21/24 Procedure(s): XR chest 2V Accession Number(s): [id number] cc: Sabine Verde NP [place] [address] Patient Name: JAY CHANDLER MRN: [id number] date: 1955 Sex: M Assigned Patient Location: [facility] Current Patient Location: Accession/Order Number: [id number] Exam Date: 09/21/2024 17:55 Report Date: 09/24/2024 08:23 At the request of: SABINE VERDE Procedure: XR chest 2V EXAMINATION: XR chest 2V HISTORY: Pleurisy chest pain R09.1 COMPARISON: No relevant comparison available. TECHNIQUE: PA and lateral FINDINGS: LUNGS: Minimal linear opacity in the left lung base, atelectasis is favored VASCULATURE: No increased pulmonary vasculature. PLEURA: No pneumothorax, effusion, or pleural thickening. CARDIAC: No cardiomegaly or cardiac silhouette abnormality. MEDIASTINUM: No visible mass or adenopathy. BONES: No fracture or visible bone lesion. OTHER: Negative. XR/XR chest 2V IMPRESSION: Minimal left basilar atelectasis. Electronically authenticated by: KIM CHEN Date: 09/24/2024 08:23 Dictated By: Kim Chen M.D. Signed By: 09/24/24824 DD/ 2 TD/TT: Flight Crew Ordnanceman:ELINHRadiology, Radiologist, - 09/24/2024 [place] [address] XRay Report Signed Patient: JAY CHANDLER MR#: [id number] : 1955 Acct:[id number] Age/Sex: 68 / M ADM Date: 09/21/24 Loc: RAD Attending Dr: Sabine Verde NP Ordering Physician: Sabine Verde NP Date of Service: 09/21/24 Procedure(s): XR chest 2V Accession Number(s): [id number] cc: Sabine Verde NP [facility] [place] [id number] Patient Name: JAY CHANDLER MRN: [id number] date: 1955 Sex: M Assigned Patient Location: [facility] Current Patient Location: Accession/Order Number: [id number] Exam Date: 09/21/2024 17:55 Report Date: 09/24/2024 08:23 At the request of: SABINE VERDE Procedure: XR chest 2V EXAMINATION: XR chest 2V HISTORY: Pleurisy chest pain R09.1 COMPARISON: No relevant comparison available. TECHNIQUE: PA and lateral FINDINGS: LUNGS: Minimal linear opacity in the left lung base, atelectasis is favored VASCULATURE: No increased pulmonary vasculature. PLEURA: No pneumothorax, effusion, or pleural thickening. CARDIAC: No cardiomegaly or cardiac silhouette abnormality. MEDIASTINUM: No visible mass or adenopathy. BONES: No fracture or visible bone lesion. OTHER: Negative. XR/XR chest 2V IMPRESSION: Minimal left basilar atelectasis. Electronically authenticated by: KIM CHEN Date: 09/24/2024 08:23 Dictated By: Kim Chen M.D. Signed By: 09/24/24824 DD/ 0823 TD/TT: Flight Crew Ordnanceman: DEBORA HealthcareRadiology Study observation (narrative)[facility] HealthcareXR CHEST 2V Ordered By: Radiologist Radiology on 31-11-0688WPZM [facility] Work Phone: XR THORACIC SPINE 3Von 84-37-9259[address] [address] XRay Report Signed Patient: JAY CHANDLER MR#: [id number] : 1955 Acct:[id number] Age/Sex: 68 / M ADM Date: 09/21/24 Loc: RAD Attending Dr: Sabine Verde MANAGEMENT SERVICES TECHNICIAN Ordering Physician: Sabine Verde NP Date of Service: 09/21/24 Procedure(s): XR thoracic spine 3V Accession Number(s): [id number] cc: Sabine Verde NP The [address] [address] Patient Name: JAY CHANDLER MRN: [id number] date: 1955 Sex: M Assigned Patient Location: [facility] Current Patient Location: [facility] Accession/Order Number: [id number] Exam Date: 09/21/2024 17:55 Report Date: 09/24/2024 15:37 At the request of: SABINE VERDE Procedure: XR thoracic spine 3V EXAMINATION: XR thoracic spine 3V HISTORY: Thoarasic pain M54.6 COMPARISON: No relevant comparison available. FINDINGS: BONES: Mild widespread spondylosis and facet osteoarthritis. No visible acute bony abnormality. DISC SPACES: Normal. No significant disc height narrowing, subluxation, or endplate abnormality. PARASPINOUS: Negative. No paraspinous abnormality is seen. OTHER: Negative. XR/XR thoracic spine 3V IMPRESSION: Mild degenerative changes Electronically authenticated by: KIM CHEN Date: 09/24/2024 15:37 Dictated By: Kim Chen M.D. Signed By: 09/24/24 1540 DD/ 1537 TD/TT: Flight Crew Ordnanceman:HOLLYadiologHeavenly cartagena MD - 09/24/[address] [address] XRay Report Signed Patient: JAY CHANDLER MR#: [id number] : 1955 Acct:[id number] Age/Sex: 68 / M ADM Date: 09/21/24 Loc: [facility] Attending Dr: Sabine Verde MANAGEMENT SERVICES TECHNICIAN Ordering Physician: Sabine Verde NP Date of Service: 09/21/24 Procedure(s): XR thoracic spine 3V Accession Number(s): [id number] cc: Sabine Verde NP [address] [address] Patient Name: JAY CHANDLER MRN: [id number] date: 1955 Sex: M Assigned Patient Location: [facility] Current Patient Location: [facility] Accession/Order Number: [id number] Exam Date: 09/21/2024 17:55 Report Date: 09/24/2024 15:37 At the request of: SABINE VERDE Procedure: XR thoracic spine 3V EXAMINATION: XR thoracic spine 3V HISTORY: Thoarasic pain M54.6 COMPARISON: No relevant comparison available. FINDINGS: BONES: Mild widespread spondylosis and facet osteoarthritis. No visible acute bony abnormality. DISC SPACES: Normal. No significant disc height narrowing, subluxation, or endplate abnormality. PARASPINOUS: Negative. No paraspinous abnormality is seen. OTHER: Negative. XR/XR thoracic spine 3V IMPRESSION: Mild degenerative changes Electronically authenticated by: KIM CHEN Date: 09/24/2024 15:37 Dictated By: Kim Chen M.D. Signed By: 09/24/24 1540 DD/ 1537 TD/TT: Flight Crew Ordnanceman: [facility] HealthcareRadiology Study observation (narrative)[facility] HealthcareXR THORACIC SPINE 3VOrdered By: Radiologist Radiology on 92-10-9156DCFJ [facility] Work Phone: all CBC WITH AUTO DIFFon 73-67-1141RBUMETONE ABSOLUTE AUTO0.1NOMS HealthcareBasophils/100 WBC (Bld)1.1 %0.2 - 2.0 %[facility] Eosinophils/100 WBC (Bld)5.8 %0.9 - 7.0 %NOMS HealthcareErythrocyte distribution width (RBC) [Ratio]12.7 %11.0 - 15.0 %[facility]OMS HealthcareHematocrit (Bld) [Volume fraction]44.8 %42.0 - 54.0 %[facility]S HealthcareHemoglobin (Bld) [Mass/Vol]14.7 g/dL 14.0 - 18.0 g/dLNOMO HealthcareIMMATURE GRANULOCYTES ABS AUTO0.03[facility] Immature granulocytes/100 WBC (Bld)0.5 %0.0 - 0.5 %N[facility] HealthcareLYMPHOCYTES ABSOLUTE AUTO1.5NOMS HealthcareLymphocytes/100 WBC (Bld)23.3 %20.5 - 60.0 %NOMS [facility] HospitalMCH (RBC) [Entitic mass]28.8 pg25.9 - 34.0 pgNOHCA Midwest DivisionMCHC (RBC) [Mass/Vol]32.8 g/dL29.9 - 35.2 g/dLNOHCA Midwest DivisionMCV (RBC) [Entitic vol]87.8 fL 80.0 - 94.0 fLNOMO HealthcareMONOCYTES ABSOLUTE AUTO0.7[facility] Monocytes/100 WBC (Bld)10.9 %1.7 - 12.0 %NOMS HealthcareNEUTROPHILS ABSOLUTE AUTO3.8NOMS HealthcareNeutrophils/100 WBC (Bld)58.4 %43.0 - 75.0 %NOMS HealthcarePlatelet mean volume (Bld) [Entitic vol]10.7 fL9.5 - 13.5 fLNOMS [facility] HospitalTBH EO #0.4NOMS HealthcareTB MQL141JCIV HealthcareTB RBC5.1NOMS HealthcareTB WBC6.5NOMS HealthcareCLINISYNCNOMS HealthcareUS RIGHT UPPER QUADRANTon 15-40-8472Py[place], [place] [address] Ultrasound Report Signed Patient: JAY CHANDLER MR#: [id number] : 1955 Acct:[id number] Age/Sex: 68 / M ADM Date: 09/13/24 Loc: US Attending Dr: Sabine Verde NP Ordering Physician: Sabine Verde NP Date of Service: 09/13/24 Procedure(s): US right upper quadrant Accession Number(s): [id number] cc: Sabine Verde NP The [address] [address] Patient Name: JAY CHANDLER MRN: [id number] date: 1955 Sex: M Assigned Patient Location: US Current Patient Location: US Accession/Order Number: [id number] Exam Date: 09/13/2024 09:30 Report Date: 09/13/2024 11:39 At the request of: SABINE VERDE Procedure: US right upper quadrant EXAM: US right upper quadrant HISTORY: Nausea And Vomiting, Right Upper Quadrant Pain COMPARISON: None. TECHNIQUE: Grayscale, color and Doppler FINDINGS: The liver measures 18 cm in length. Diffuse increase in hepatic echotexture with no focal mass. Hepatopedal flow in the main portal vein The visualized pancreas is normal. Pancreas is poorly visualized The gallbladder is normal in size. The wall measures 3 mm, normal. Negative sonographic Goldstein sign. Common bile duct measures 6.4 mm. The right kidney is normal measuring 10.8 x 5.6 x 5.7 cm. 4 mm nonobstructing nephrolith No free fluid US/US right upper quadrant IMPRESSION: Echogenic liver suggesting hepatic steatosis 4 mm nonobstructing right nephrolith. Electronically authenticated by: KIM CHEN Date: 09/13/2024 11:39 Dictated By: Kim Chen M.D. Signed By: 09/13/24 1444 DD/ 1139 TD/TT: Flight Crew Ordnanceman:TBHRadiology, Radiologist, - 09/13/[address] [address] Ultrasound Report Signed Patient: JAY CHANDLER MR#: [id number] : 1955 Acct:[id number] Age/Sex: 68 / M ADM Date: 09/13/24 Loc: US Attending Dr: Sabine Verde NP Ordering Physician: Sabine Verde NP Date of Service: 09/13/24 Procedure(s): US right upper quadrant Accession Number(s): [id number] cc: Sabine Verde NP [place] [id number] Patient Name: JAY CHANDLER MRN: [id number] date: 1955 Sex: M Assigned Patient Location: US Current Patient Location: US Accession/Order Number: [id number] Exam Date: 09/13/2024 09:30 Report Date: 09/13/2024 11:39 At the request of: SABINE VERDE Procedure: US right upper quadrant EXAM: US right upper quadrant HISTORY: Nausea And Vomiting, Right Upper Quadrant Pain COMPARISON: None. TECHNIQUE: Grayscale, color and Doppler FINDINGS: The liver measures 18 cm in length. Diffuse increase in hepatic echotexture with no focal mass. Hepatopedal flow in the main portal vein The visualized pancreas is normal. Pancreas is poorly visualized The gallbladder is normal in size. The wall measures 3 mm, normal. Negative sonographic Goldstein sign. Common bile duct measures 6.4 mm. The right kidney is normal measuring 10.8 x 5.6 x 5.7 cm. 4 mm nonobstructing nephrolith No free fluid US/US right upper quadrant IMPRESSION: Echogenic liver suggesting hepatic steatosis 4 mm nonobstructing right nephrolith. Electronically authenticated by: KIM CHEN Date: 09/13/2024 11:39 Dictated By: Kim Chen M.D. Signed By: 09/13/24 144 DD/ 1139 TD/TT: Flight Crew Ordnanceman: [facility] HealthcareRadiology Study observation (narrative)NOMS HealthcareUS RIGHT UPPER QUADRANTOrdered By: Radiologist Radiology on 60-71-1606OTLH [facility] Work Phone: [phone]-AWM-2 AG*on 17-14-2445KOJC-CoV-2 (COVID-19) RNA ELSA+probe Ql (Unsp spec)NegativeNEGATIVENOMS HealthcareComment on above:This test has not been FDA cleared or approved, but has been [...] is terminated or authorization is revoked sooner. [facility]NCUN[facility] HealthcarePathology Noteon 55-31-4696Ozgdcmeuk Note [id number]#1.00[facility] HospitalPathology Noteon 36-68-6936Wyqvdilxe Note [id number]#1.00[facility] HospitalReminderson 88-73-2962Nzveirrmh From: Zahida San LPN To: N - Clinical; Sent: 12/07/2023 09:18:33 EDT Show up: 10/22/2028 07:00:00 EST Subject: colonoscopy recall Due Date/Time: 11/22/2028 07:00:00 EST Reminder/Recall Patient due for surveillance colonoscopy 11/22/2028 due to history of tubular adenoma.[facility] HospitalOutside Colonoscopyon 08-18-1618Dgxceze [id number]#1.00TIFHarrison Community HospitalLab Reportson 54-87-5057Iyl Reports [id number]#1.00[facility] HospitalConsent for Procedure/Surgeryon 36-64-7309Sohlrjj for Procedure/Surgery [id number]#1.00[facility] HospitalAmbulatory Visit Summaryon 39-38-5152Oyrmagttpa Visit Summary JAY CHANDLER :1955 Visit Date:11/07/2023 [...] hours Tab-ER) cetirizine (cetirizine 10 mg Tab) fluticasone/umeclidinium/vilanterol (Trelegy Ellipta) levothyroxine (levothyroxine 88 mcg (0.088 [...] you for choosing us for your care. [facility] HospitalConsultation Noteon 10-05-2023 Consultation [id number]#1.00TIFFNoMarion HospitalPhysician Referralon 97-54-7366Scqpbbqqi Referral [id number]#1.00TIFHarrison Community HospitalPhysician Referralon 51-65-6387Mjmsmavqh Referral [id number]#1.00TIFHarrison Community Hospital Vital Signs Date TimeVital SignValuePerforming MnswuxfhzNbeknucq70-93-9843 09:35-0400Body azrjpu266.8 cmIselajosie Kash DPM Work Phone: [facility] CenterVrmduegmzi76-42-4945 09:35-0400Body mass index (BMI) [Ratio]28.41 kg/c3Dtpmywzv Brown DPM Work Phone: [facility] CenterWflhfkschf36-55-9651 09:35-0400Body gabrqn75.81 kgSantos Hewitt DPM Work Phone: [place] [address]Ebnubzhlmq35-86-4707 09:35-0400Respiratory rate18 /minSantos Kash DPM Work Phone: [facility] CenterIekxhqghsn79-18-8153 09:42-0400Body .8 cmJovanyjah Baconoccio DO Work Phone: [facility]08-07-2025 09:42-0400 Body mass index (BMI) [Ratio]28.55 kg/b4Xqgrx Carroccio DO Work Phone: [facility]08-07-2025 09:42-0400 Body .39 [degF]Kerrie West DO Work Phone: [facility]08-07-2025 09:42-0400 Body ulrimq94.27 kgKerrie Baconoccio DO Work Phone: [facility]08-07-2025 09:42-0400 Diastolic blood mm[Hg]Kerrie West DO Work Phone: [facility]08-07-2025 09:42-0400 Heart rate80 /minKerrie West DO Work Phone: [facility]08-07-2025 09:42-0400 SaO2% (BldA) [Mass fraction]95 %Kerrie West DO Work Phone: [facility]08-07-2025 09:42-0400 Systolic blood eblyecgu870 mm[Hg]Kerrie West DO Work Phone: [facility]08-04-2025 16:38-0400 Body mass index (BMI) [Ratio]28.55 kg/m2Sabine Verde MANAGEMENT SERVICES TECHNICIAN Work Phone: [facility] CenterTbekrnpvrp35-50-7183 16:38-0400Body temperature 97.81 [degF]Sabine Verde MANAGEMENT SERVICES TECHNICIAN Work Phone: [facility] CenterOlnsnzyoxw37-80-2202 16:38-0400Body foerdg63.27 kgSabine Verde MANAGEMENT SERVICES TECHNICIAN Work Phone: [facility] HealthcareComment on above:refused to get on our scale pt states he weighed himself on his scale this irecbhd70-95-2282 16:38-0400Diastolic blood gvuqgnjl46 mm[Hg]Sabine Verde MANAGEMENT SERVICES TECHNICIAN Work Phone: [facility] CenterMnnmjxkorn45-24-4657 16:38-0400Heart rate80 /min Sabine Verde MANAGEMENT SERVICES TECHNICIAN Work Phone: [facility] CenterPmvhwgapzh78-87-0219 16:38-0400Respiratory rate18 /minSabine Verde MANAGEMENT SERVICES TECHNICIAN Work Phone: [facility] CenterDgvstquxfi78-46-9861 16:38-9600ZiP8% (BldA) [Mass fraction]95 %Sabine Verde MANAGEMENT SERVICES TECHNICIAN Work Phone: [facility] CenterLvispvvxeq18-82-4188 16:38-0400Systolic blood rxjfjwyp318 mm[Hg]Sabine Verde MANAGEMENT SERVICES TECHNICIAN Work Phone: [phone] [place], [place] [address]Fdsmrlxhio39-53-5605 17:33-0400Body mass index (BMI) [Ratio]30.28 kg/m2Altagraciasa Yevgeniyz MANAGEMENT SERVICES TECHNICIAN Work Phone: [facility] CenterOapylrwyzo48-84-1215 17:33-0400Body temperature 97.81 [degF]Sabine Verde MANAGEMENT SERVICES TECHNICIAN Work Phone: [facility] CenterCybkgaxwwd46-49-6821 17:33-0400Body ktaqke45.71 kgLisa Ammon MANAGEMENT SERVICES TECHNICIAN Work Phone: [facility] Medical CenterComment on above:pt weighed self at home refused to get on the office abbhm34-03-5837 17:33-0400Diastolic blood hegnhqdp50 mm[Hg]Sabine Verde MANAGEMENT SERVICES TECHNICIAN Work Phone: [facility] CenterVbrstqmrow04-09-9565 17:33-0400Heart rate87 /min Sabine Yevgeniyz MANAGEMENT SERVICES TECHNICIAN Work Phone: [facility] CenterJhyhhjmlpj12-62-7409 17:33-0400Respiratory rate20 /minLisa Verde MANAGEMENT SERVICES TECHNICIAN Work Phone: [facility] CenterOqpzlldrbt91-34-0358 17:33-2863DsW7% (BldA) [Mass fraction]94 %Sabine Verde MANAGEMENT SERVICES TECHNICIAN Work Phone: [facility] CenterOmjkzndodh06-30-0945 17:33-0400Systolic blood itojmrln782 mm[Hg]Sabine Yevgeniyz MANAGEMENT SERVICES TECHNICIAN Work Phone: [facility] CenterVhfufsonme78-44-2874 17:39-0500Body pogeqa695.8 cmLisa Yevgeniyz MANAGEMENT SERVICES TECHNICIAN Work Phone: [facility] CenterMqkwwhqzvd81-99-5957 17:39-0500Body mass index (BMI) [Ratio]31.28 kg/m2Altagraciasa Yevgeniyz MANAGEMENT SERVICES TECHNICIAN Work Phone: [facility] CenterQgrajgrdik52-47-6562 17:39-0500Body temperature 98.71 [degF]Sabine Yevgeniyalise MANAGEMENT SERVICES TECHNICIAN Work Phone: [facility] CenterJtjevfxbev77-12-3171 17:39-0500Body ydpscv76.88 kgLisa Caponeholz MANAGEMENT SERVICES TECHNICIAN Work Phone: [facility] HealthcareComment on above:states pt- pt weighed self at jojq37-46-2992 17:39-0500Diastolic blood knnjurru22 mm[Hg]Sabine Caponeholz MANAGEMENT SERVICES TECHNICIAN Work Phone: [facility] CenterDpkjzyswqx84-66-0646 17:39-0500Heart rate81 /min Sabine Estelitaholz MANAGEMENT SERVICES TECHNICIAN Work Phone: [facility] CenterSlwpigsmqe93-90-7452 17:39-0500Respiratory rate21 /minLisa Frankiehholz MANAGEMENT SERVICES TECHNICIAN Work Phone: [facility] CenterBdjwtumoik31-27-1104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 GI at F * Sabine Verde NP - 10/28/2024 6:24 PM ESTAssociated Problem(s): Gastroesophageal reflux disease without esophagitis Recommendations: freq small meals, nothing to eat or drink at least 2 hours prior to bed, limit caffeine, alcohol, as well as spicy foods Meds to limit or avoid if possible: NSAIDS Elevate HOB if possible Prn dose omeprazole * Sabine Verde NP - 10/28/2024 6:24 PM ESTAssociated Problem(s): Kidney stone on right side Does not have any current sxs, UA in 09/17 no blood present, will monitor at this time * Sabine Verde NP - 10/28/2024 6:23 PM ESTAssociated Problem(s): Hypertension (CMS/HCC) Please check blood pressure daily and record DASH diet Limit caffeine Take medication as directed Contact office if chest pain, pressure, dizziness, shortness of breath, swelling legs Recommend slow position changes Current med: lisinopril * Sabine Verde NP - 10/28/2024 6:23 PM ESTAssociated Problem(s): 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 We have also discussed lifestyle modifications: attempts to perform physical activity as chronic conditions allow, also to monitor dietary intake: increasing protein/fruits/veggies and lowering carb intake (unless contraindicated). Limit sodas, juices, and sugary drinks. Doing well with weight loss, has lost about 18 pounds since last visit * Sabine Verde NP - 10/28/2024 5:30 PM EST Images from the original note were not included. Jay Chandler is a 68 y.o. male presents with chief complaint of No chief complaint on file. HPI: Here for a recheck: has been cutting back his carbs, feeling like more energy Taking meds as directed. He is having less abd complaints as well Abd complaints: does get GERD but not as freq, bowel movements are more solid as well Overall is feeling pretty good SUBJECTIVE: MEDICATIONS: Current Outpatient Medications Medication Instructions [...] ALLERGY RELIEF(CETIRIZINE)) 10 mg, Oral, Every morning hydrocortisone 2.5 % cream Apply to face bid prn for flares, hold then clear/30 days hyoscyamine (LEVSIN/SL) 0.125 mg, Oral, Every 6 [...] ED. DO NOT EXCEED 20 MG DAILY triamcinolone (Kenalog) 0.1 % cream Apply to hands and legs BID prn when flared. Hold when skin is smooth/asymptomatic. Do not use on the face, neck. Armpits or groin/30 days ALLERGIES: Allergies Allergen Reactions Iodinated Contrast Media [...] urine volume, difficulty urinating, dysuria and hematuria. Skin: Negative for color change. Neurological: Negative [...] History: Diagnosis Date ABPA (allergic bronchopulmonary aspergillosis) ([facility]) 11/09/2023 Asthma ([facility]) 11/09/2023 Erectile dysfunction 11/09/2023 Hyperlipidemia ([facility]) 11/09/2023 Hypertension ([facility]) Inguinal hernia 11/09/2023 Onychomycosis Pleurisy 11/09/2023 Pre-diabetes Thyroid trouble ([facility]) Visual impairment 11/09/2023 Past Surgical History: Procedure Laterality Date CYST REMOVAL Fatty Cyst Removed ESOPHAGEAL ATRESIA REPAIR HERNIA REPAIR Inguinal OTHER SURGICAL HISTORY 2 fingers on right hand injured 2 broken ribs family history includes Atrial fibrillation in his mother; Cancer in his father; Hypertension in his father and mother. OBJECTIVE: Visit Vitals BP 118/80 (BP Location: Left arm, Patient Position: Sitting, BP Cuff Size: Adult long) Pulse 81 Temp 98.7 F (Temporal) Resp 21 Ht 5' 10 Wt 218 lb Comment: states pt- pt weighed self at home SpO2 95% BMI 31.28 kg/m Smoking Status Never BSA 2.21 m Physical Exam Vitals and nursing note reviewed. Constitutional: Appearance: Normal appearance. HENT: Head: Normocephalic. Right Ear: External ear normal. Left Ear: External ear normal. Nose: Nose normal. Mouth/Throat: Mouth: Mucous membranes are moist. Pharynx: Oropharynx is clear. Eyes: Extraocular Movements: Extraocular movements intact. Conjunctiva/sclera: Conjunctivae normal. Cardiovascular: Rate and Rhythm: Normal rate and regular rhythm. Pulses: Normal pulses. Heart sounds: Normal heart sounds. Pulmonary: Effort: Pulmonary effort is normal. No respiratory distress. Breath sounds: Normal breath sounds. No wheezing. Abdominal: General: Bowel sounds are normal. Palpations: Abdomen is soft. Tenderness: There is no abdominal tenderness. Musculoskeletal: Cervical back: Neck supple. Skin: General: Skin is warm and dry. Capillary Refill: Capillary refill takes 2 to 3 seconds. Neurological: General: No focal deficit present. Mental Status: He is alert. Psychiatric: Mood and Affect: Mood normal. Behavior: Behavior normal. Thought Content: Thought content normal. Judgment: Judgment normal. ASSESSMENT AND PLAN: No follow-ups on file. Problem List Items Addressed This Visit Hypertension ([facility]) Please check blood pressure daily and record DASH diet Limit caffeine Take medication as directed Contact office if chest pain, pressure, dizziness, shortness of breath, swelling legs Recommend slow position changes Current med: lisinopril Obesity (BMI 30-39.9) Discussed with patient their BMI (actual, verses recommended). We have also discussed lifestyle modifications: attempts to perform physical activity as chronic conditions allow, also to monitor dietary intake: increasing protein/fruits/veggies and lowering carb intake (unless contraindicated). Limit sodas, juices, and sugary drinks. Doing well with weight loss, has lost about 18 pounds since last visit Allergic bronchopulmonary aspergillosis ([facility]) Has had in the past Was on steroids in the past for this Male erectile dysfunction, unspecified Current med: cialis Gastroesophageal reflux disease without esophagitis Recommendations: freq small meals, nothing to eat or drink at least 2 hours prior to bed, limit caffeine, alcohol, as well as spicy foods Meds to limit or avoid if possible: NSAIDS Elevate HOB if possible Prn dose omeprazole Type 2 diabetes mellitus without complication, without long-term current use of insulin ([facility]) -Primary Check blood sugars daily, notify if <70 [...] Weight loss: 18 pounds since last visit Kidney stone on right side Does not have any current sxs, UA in 09/17 no blood present, will monitor at this time Family history of celiac disease Wants to keep working on diet, will fu in 01/17 then will consider a referral to GI at F Other Visit Diagnoses Type 2 diabetes mellitus with other specified complication ([facility]) * NORAH VELIZ - 10/28/2024 5:30 PM EST 02 range 97-94 Pt weight self at home: 218lbs * Sabine Verde NP - 10/28/2024 7:23 AM ESTAssociated Problem(s): Male erectile dysfunction, unspecified Current med: laralis * Sabine Verde NP - 10/28/2024 7:22 AM ESTAssociated Problem(s): Type 2 diabetes mellitus without complication, without long-term current useof insulin ([facility]) Check blood sugars daily, notify if <70 [...] Weight loss: 18 pounds since last visit documented in this [facility]02-03-2025 Instructions* Patient Instructions* Sabine Verde NP - 10/28/2024 5:30 PM EST No med dose changes Keep up the great job When follow up in early December 2024 we can decide about GI documented in this [facility]01-20-2025 History of Present illness Narrative* JAYME Lee - 10/14/2024 10:40 AM EST Skin Check Location: Patient requests a full body skin examination Dermatologic history: no history of skin cancer, no history of atypical moles Last visit: 1 year ago Follow up #1 Diagnosis: atopic dermatitis Location: face, hands, lower extremities Last visit: 1 year ago Symptoms: red, generalized dryness Status: mild flare on hands Current treatment: Elidel cream for face (not using), TAC 0.1% cream on hands (and he admits to using on his face), moisturizes with [employer] products, uses antibacterial soap for handwashing at the sink All pertinent medical history, medications, and allergies were reviewed. General Exam: alert, oriented to person, place, and time, normal affect, well appearing Accompanied by spouse Scalp, Examined , exam limited by hair Right leg Examined Head, Face Examined Left leg Examined Neck Examined Right foot Examined Chest Examined Left foot Examined Back Examined Buttocks Examined Abdomen Examined Digits,nails: Examined Right arm Examined Left arm Examined Lymphatics: Not examined Hands Examined 1. Other atopic dermatitis Head - Anterior (Face), Left Hand - Anterior Mildly erythematous patches on the hands. Face and legs are clear today Discussed that atopic dermatitis is a chronic condition that can be controlled but not cured. Continue TAC 0.1% cream bid prn when flared, hold if smooth/asymptomatic. Instructed patient not to use TAC on the face, use Elidel instead when flared. Encouraged daily moisturizing and gentle cleansers to prevent flares. Discontinue antibacterial soap for handwashing and use a moisturizing soap. Notifyoffice if flaring despite treatment. Related Medications hydrocortisone 2.5 % cream Apply to face bid prn for flares, hold then clear/30 days triamcinolone (Kenalog) 0.1 % cream Apply to hands and legs BID prn when flared. Hold when skin is smooth/asymptomatic. Do not use on the face, neck. Armpits or groin/30 days 2. Melanocytic nevus of trunk Scattered benign appearing, regular brown to light brown melanocytic papules and macules with similar morphology Counseled regarding these benign growths. Rarely, a nevus can develop into malignant melanoma, so any changing nevi should be promptly re-evaluated. 3. Lentigines Upper back and shoulders Scattered naylor macules in sun-exposed areas. The patient was informed that lentigines are benign pigmented lesions that occur on sun-exposed andsun-damaged skin. No treatment is necessary. Recommended regular use of broad spectrum sunscreen SPF 30 or higher Next Visit: 1 year documented in this encounterNOHCA Midwest [id number] Telephone encounter Note* Telephone Encounter - Sabine Verde NP - 09/26/2024 4:56 PM EST Check on patient to see if resp symptoms are better with steroids If anything has changed indicating the need for atb therapy [facility] [id number] Miscellaneous Notes* Telephone Encounter - Sabine Verde NP - 09/26/2024 4:56 PM EST Check on patient to see if resp symptoms are better with steroids If anything has changed indicating the need for atb therapy [place] documented in this encounterMineral Area Regional Medical [id number] History of Present illness Narrative* Sabine Verde NP - 09/23/2024 11:09 PM ESTAssociated Problem(s): Kidney stone on right side No current sxs, will check KUB * Sabine Verde NP - 09/23/2024 11:08 PM ESTAssociated Problem(s): Hypertension ([facility]/HCC) No changes in med dose at this time * Sabine Verde NP - 09/23/2024 11:07 PM ESTAssociated Problem(s): Asthmatic bronchitis with acute exacerbation (CMS/HCC) At this point pt is wheezing expiratory, no inspiratory. Will hold on atb Start prednisone, check in in 2 days to see if better * Sabine Verde NP - 09/23/2024 11:05 PM ESTAssociated Problem(s): ABPA (allergic bronchopulmonary aspergillosis) ([facility]) Has had in the past Was on steroids in the past for this * NORAH VELIZ - 09/23/2024 7:00 PM EST Pt has been having s/s since Monday. Pt did do a covid test yesterday and it was negative. Sinus pressure, headaches, sore throat, losing voice, plugged ears with pain * Sabine Verde NP - 09/23/2024 7:00 PM EST Images from the original note were not [...] History: Diagnosis Date ABPA (allergic bronchopulmonary aspergillosis) ([facility]) 11/09/2023 Asthma ([facility]) 11/09/2023 Erectile dysfunction 11/09/2023 Hyperlipidemia ([facility]) 11/09/2023 Hypertension ([facility]) Inguinal hernia 11/09/2023 Onychomycosis Pleurisy 11/09/2023 Pre-diabetes [...] ASSESSMENT AND PLAN: No follow-ups on file. * Sabine Verde NP - 09/23/2024 7:44 AM ESTAssociated Problem(s): Type 2 diabetes mellitus without complication, without long-term current useof insulin ([facility]) Check blood sugars daily, notify if <70 [...] statin, metfromin Most recent A1c: 6.6% 09/13/24 * Sabine Verde NP - 09/23/2024 7:43 AM ESTAssociated Problem(s): RUQ pain Since last visit has had GBUS, HIDA was ordered and to date note done documented in this encounterMineral Area Regional Medical [id number] Instructions* Patient Instructions* Sabine Verde NP - 09/23/2024 7:00 PM [...] will check HIDA scan documented in this encounterMineral Area Regional Medical [id number] History of Present illness Narrative* Sabine Verde NP - 08/26/2024 5:48 PM ESTAssociated Problem(s): Nausea & vomiting Zofran prn 2 oz fluids, hourly as tolerated Advanced diet as tolerated * Sabine Verde NP - 08/26/2024 5:37 PM ESTAssociated Problem(s): Gastroenteritis Fluids, rest Treat symptoms, check of COVID No signs of acute abd * NORAH VELIZ - 08/26/2024 5:00 PM EST Pt started with symptoms of watery stools [...] 2am Pt now only has fluid bowels * Sabine Verde NP - 08/26/2024 5:00 PM EST Images from the original note were not included. Jay Chandler is a 68 y.o. male presents with chief complaint of Fever and Diarrhea HPI: GI Problem The primary symptoms include fever, fatigue, nausea, vomiting, diarrhea and myalgias. Primary symptoms do not include jaundice, hematochezia or dysuria. The illness began 3 to 5 days ago. The problemhas not changed since onset. The fever began [...] History: Diagnosis Date ABPA (allergic bronchopulmonary aspergillosis) ([facility]) 11/09/2023 Asthma ([facility]) 11/09/2023 Erectile dysfunction 11/09/2023 Hyperlipidemia ([facility]) 11/09/2023 Hypertension ([facility]) Inguinal hernia 11/09/2023 Onychomycosis Pleurisy 11/09/2023 Pre-diabetes Thyroid trouble ([facility]) Visual impairment 11/09/2023 Past Surgical History: Procedure [...] Advanced diet as tolerated documented in this [facility]12-02-2024 Instructions* Patient Instructions* Sabine Verde NP - 08/26/2024 5:00 PM EST Will test for COVID: [facility] faxed order to lab, due this 08/27/24 Check lab Meds for symptoms: ondansartan for nausea, hycosamine for abd cramping Fluids, bland foods documented in this encounterMineral Area Regional Medical [id number] History of Present illness Narrative* Sabine Verde NP - 07/17/2024 3:20 PM EDTAssociated Problem(s): Pleurisy Hx of collapsed lungs Hx of pnuemonia * Sabine Verde NP - 07/17/2024 3:20 PM EDTAssociated Problem(s): Thoracic spine pain Possible cause of the pleuritic pain? Radiculopathy * Sabine Verde NP - 07/17/2024 3:11 PM EDTAssociated Problem(s): Major depressive disorder with single episode, in partial remission (HCC) ([facility]/HCC) Feels wellbutrin XL 300mg doing ok * Sabine Verde NP - 07/17/2024 3:11 PM EDTAssociated Problem(s): Gastroesophageal reflux disease without esophagitis Freq small meals, avoid caffeine, aviod food and drink 2 hours prior to HS Stop pepcid, we will trial omeprazole Fu in 6 weeks * Sabine Verde NP - 07/17/2024 3:09 PM EDTAssociated Problem(s): Hypertension (CMS/HCC) Please check blood pressure daily and record DASH diet Limit caffeine Take medication as directed Contact office if chest pain, pressure, dizziness, shortness of breath, swelling legs Recommend slow position changes * NORAH VELIZ - 07/17/2024 2:20 PM EDT Pt would like to get the prescription again of the pepcid 20mg tablet 90 day supply if can Pt needs a new refill order for the IBU 600 and maybe something a lil bit stronger * Sabine Verde NP - 07/17/2024 2:20 PM EDT Images from the original note were not [...] short of breath d/t intensity, no cough. Nowheezing. No hemoptysis. Last saw pulmonology in early to mid s. Has not seen one since then. Has been seeing pet ambassador as well. No thoracic spine tenderness. HTN: [...] History: Diagnosis Date ABPA (allergic bronchopulmonary aspergillosis) ([facility]) 11/09/2023 Asthma ([facility]) 11/09/2023 Erectile dysfunction 11/09/2023 Hyperlipidemia ([facility]) 11/09/2023 Hypertension ([facility]) Inguinal hernia 11/09/2023 Onychomycosis Pleurisy 11/09/2023 Pre-diabetes Thyroid trouble ([facility]) Visual impairment 11/09/2023 Past Surgical History: Procedure [...] 300mg doing ok Hypothyroidism (acquired) (CMS/HCC) Hypertension ([facility]) Please check blood pressure daily and record [...] Relevant Orders Flu vaccine, trivalent, adjuvanted, PF ([id number]) (Fluad trivalent single dose syringe) Gastroesophageal reflux [...] views Other Visit Diagnoses Allergic bronchopulmonary aspergillosis ([facility]/HCC) documented in this encounterMineral Area Regional Medical [id number] NoteChief Complaint consultation for colonoscopy [facility] Staff 67 year old male presents on consultation from Sabine Verde for surveillance colonoscopy. Colonoscopy completed 12/2014 with polyp of ascending colon with recommended repeat in 3 years; pathology notavailable. Attempted colonoscopy completed 05/2018 converted to sigmoidoscopy as scope was unable toadvance past descending colon; unremarkable. Father with history of colon cancer, diagnosed age 72.Denies abdominal or rectal pain. No rectal bleeding or change in bowel habits. Denies nausea or vomiting. No unexplained weight loss. History of Present Illness 67 yo male with h/o htn, hyperlipidemia, hypothyroidism, asthma, bph, referred for surveillance colonoscopy; patient had colonoscopy 12/2014 at [facility] with removal of 8 mm ascending colon polyp, pathology not available; recommend f/u colonoscopy in 3 years, had attempted colonoscopy in [place] in 2018, only got to distal descending [...] swallowing difficulties, no hearing loss, no ear infection(s),no nose bleeds. Cardiovascular: normal blood pressure, no [...] tab(s), Oral, qPM Trele (more content not included)...[facility] HospitalComment on above: Result Comment: Electronically Signed By: Jason QUISPE MD\Date and Time Signed: 11/07/23 14:00 [id number] Hospital Discharge instructions Patient Education 10/12/2022 09:34:22 Benign Prostatic Hyperplasia Benign Prostatic Hyperplasia Benign prostatic hyperplasia (BPH) is an enlarged prostate gland that is caused by the normal agingprocess and not by cancer. The prostate is [...] urethra. Follow these instructions at home: Take jtbs-iwf-hefkaig and prescription medicines only as told by [...] 09/11/2006 Document Revised: 08/06/2019 Document Reviewed: 10/16/2017 [employer] Patient Education 2020 [employer]. 10/12/2022 09:05:53 Erectile Dysfunction Erectile Dysfunction Erectile [...] Follow these instructions at home: Medicines Take eyxq-hdz-irsjryy and prescription medicines only as told by your health care provider. Do not increase the dosage without first discussing it with your health care provider. If you are using self-injections, perform injections as directed by your health care provider. Makesure to avoid any veins that are on [...] come with the pump and discuss any questionswith your health care provider. Keep all follow-up [...] and may include medicines, hormone therapy, surgery, orvacuum pump. You may need follow-up visits to [...] 09/08/2001 Document Revised: 08/24/2018 Document Reviewed: 09/27/2017 [employer] Patient Education [employer]. Follow Up Care 09/13/2022 14:25:31 With:Christiano PAREDES, Julissa Matthews, [facility], [facility] Address: When: Unknown [facility] [place] evaluation + Plan note Future Appointments Appointment Date:12/14/2022 10:45:00 AM Scheduled Provider:Julissa Alvarado MD Location:[facility] Appointment Type:URO Office Visit [facility] evaluation note* Diagnosis MDD (major depressive disorder), single episode, in partial remission (HCC) ([facility])- Primary Screening for prostate cancer Special screening for malignant neoplasm of prostate Mixed hyperlipidemia ([facility]) Mixed hyperlipidemia Hypothyroidism (acquired) ([facility]) Unspecified hypothyroidism Primary hypertension ([facility]) Unspecified essential hypertension Seasonal allergies Allergic rhinitis, cause unspecified Pre-diabetes Other abnormal glucose Dermatitis Contact dermatitis and other eczema, due to unspecified cause Major depressive disorder with single episode, in partial remission (HCC) ([facility]) Obesity (BMI 30-39.9)- Primary Asthmatic bronchitis with acute exacerbation, unspecified asthma severity, unspecified whether persistent ([facility]) Screening for colon cancer Special screening for malignant neoplasms, colon Asthmatic bronchitis with acute exacerbation, unspecified asthma severity, unspecified whether persistent (CMS/HCC)- Primary Primary hypertension (CMS/HCC) Unspecified essential hypertension History of colonic polyps Personal history of colonic polyps Major depressive disorder with single episode, in partial remission (HCC) ([facility]) Obesity (BMI 30-39.9) Hypothyroidism (acquired) (CMS/HCC)- Primary [...] Esophageal reflux Obesity (BMI 30-39.9) Hypothyroidism (acquired) ([facility]/HCC) Unspecified hypothyroidism Pre-diabetes Other abnormal glucose Major depressive disorder with single episode, in partial remission (HCC) ([facility]) Thoracic spine pain Pain in thoracic spine documented in this encounter [facility] HealthcareEvaluation note* Diagnosis MDD (major depressive disorder), single episode, in partial remission (HCC) ([facility])- Primary Screening for prostate cancer Special screening for malignant neoplasm of prostate Mixed hyperlipidemia (CMS/HCC) Mixed hyperlipidemia Hypothyroidism (acquired) ([facility]) Unspecified hypothyroidism Primary hypertension ([facility]) Unspecified essential hypertension Seasonal allergies Allergic rhinitis, cause unspecified Pre-diabetes Other abnormal glucose Dermatitis Contact dermatitis and other eczema, due to unspecified cause Major depressive disorder with single episode, in partial remission (HCC) ([facility]) Obesity (BMI 30-39.9)- Primary Asthmatic bronchitis with acute exacerbation, unspecified asthma severity, unspecified whether persistent ([facility]) Screening for colon cancer Special screening for malignant neoplasms, colon Asthmatic bronchitis with acute exacerbation, unspecified asthma severity, unspecified whether persistent ([facility]/HCC)- Primary Primary hypertension ([facility]/HCC) Unspecified essential hypertension History of colonic polyps Personal history of colonic polyps Major depressive disorder with single episode, in partial remission (HCC) ([facility]) Obesity (BMI 30-39.9) Gastroenteritis- Primary Other and unspecified noninfectious gastroenteritis and colitis Obesity (BMI 30-39.9) Hypothyroidism (acquired) ([facility]/HCC)- Primary Unspecified hypothyroidism 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 Primary hypertension ([facility]/HCC) Unspecified essential hypertension Obesity (BMI 30-39.9) Mild intermittent asthma without complication (CMS/HCC) Primary hypertension ([facility]/HCC)- Primary Unspecified essential hypertension Allergic bronchopulmonary aspergillosis ([facility]/HCC) Allergic bronchopulmonary aspergillosis Encounter for wellness examination in adult Screening for prostate cancer Special screening for malignant neoplasm of prostate Needs flu shot Need for prophylactic vaccination and inoculation against influenza Pleurisy Pleurisy without mention of effusion or current tuberculosis Gastroenteritis Other and unspecified noninfectious gastroenteritis and colitis Gastroesophageal reflux disease without esophagitis Esophageal reflux Obesity (BMI 30-39.9) Hypothyroidism (acquired) ([facility]/HCC) Unspecified hypothyroidism Pre-diabetes Other abnormal glucose Major depressive disorder with single episode, in partial remission (HCC) ([facility]) Thoracic spine pain Pain in thoracic spine BPH with urinary obstruction Hypertrophy of prostate with urinary obstruction and other lower urinary tract symptoms (LUTS) Nausea and vomiting, unspecified vomiting type- Primary Obesity (BMI 30-39.9) Gastroenteritis Other and unspecified noninfectious gastroenteritis and colitis documented in this encounter [facility] HealthcareEvaluation note* Diagnosis MDD (major depressive disorder), single episode, in partial remission (HCC) ([facility])- Primary Screening for prostate cancer Special screening for malignant neoplasm of prostate Mixed hyperlipidemia (CMS/HCC) Mixed hyperlipidemia Hypothyroidism (acquired) ([facility]) Unspecified hypothyroidism Primary hypertension ([facility]) Unspecified essential hypertension Seasonal allergies Allergic rhinitis, cause unspecified Pre-diabetes Other abnormal glucose Dermatitis Contact dermatitis and other eczema, due to unspecified cause Major depressive disorder with single episode, in partial remission (HCC) ([facility]) Obesity (BMI 30-39.9)- Primary Asthmatic bronchitis with acute exacerbation, unspecified asthma severity, unspecified whether persistent ([facility]) Screening for colon cancer Special screening for malignant neoplasms, colon Asthmatic bronchitis with acute exacerbation, unspecified asthma severity, unspecified whether persistent ([facility]/HCC)- Primary Primary hypertension ([facility]) Unspecified essential hypertension History of colonic polyps Personal history of colonic polyps Major depressive disorder with single episode, in partial remission (HCC) ([facility]) Obesity (BMI 30-39.9) Gastroenteritis- Primary Other and unspecified noninfectious gastroenteritis and colitis Obesity (BMI 30-39.9) Hypothyroidism (acquired) ([facility])- Primary Unspecified hypothyroidism 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 Primary hypertension ([facility]/HCC) Unspecified essential hypertension Obesity (BMI 30-39.9) Mild intermittent asthma without complication ([facility]/HCC) Primary hypertension ([facility]/HCC)- Primary Unspecified essential hypertension Allergic bronchopulmonary aspergillosis ([facility]) Allergic bronchopulmonary aspergillosis Encounter for wellness examination in adult Screening for prostate cancer Special screening for malignant neoplasm of prostate Needs flu shot Need for prophylactic vaccination and inoculation against influenza Pleurisy Pleurisy without mention of effusion or current tuberculosis Gastroenteritis Other and unspecified noninfectious gastroenteritis and colitis Gastroesophageal reflux disease without esophagitis Esophageal reflux Obesity (BMI 30-39.9) Hypothyroidism (acquired) ([facility]) Unspecified hypothyroidism Pre-diabetes Other abnormal glucose Major depressive disorder with single episode, in partial remission (HCC) ([facility]) Thoracic spine pain Pain in thoracic spine BPH with urinary obstruction Hypertrophy of prostate with urinary obstruction and other lower urinary tract symptoms (LUTS) Nausea and vomiting, unspecified vomiting type- Primary Obesity (BMI 30-39.9) Gastroenteritis Other and unspecified noninfectious gastroenteritis and colitis Nausea and vomiting, unspecified vomiting type- Primary RUQ pain Abdominal pain, right upper quadrant Elevated serum glucose documented in this encounter [facility] HealthcareEvaluation note* Diagnosis MDD (major depressive disorder), single episode, in partial remission (HCC) ([facility])- Primary Screening for prostate cancer Special screening for malignant neoplasm of prostate Mixed hyperlipidemia ([facility]) Mixed hyperlipidemia Hypothyroidism (acquired) ([facility]) Unspecified hypothyroidism Primary hypertension ([facility]) Unspecified essential hypertension Seasonal allergies Allergic rhinitis, cause unspecified Pre-diabetes Other abnormal glucose Dermatitis Contact dermatitis and other eczema, due to unspecified cause Major depressive disorder with single episode, in partial remission (HCC) ([facility]) Obesity (BMI 30-39.9)- Primary Asthmatic bronchitis with acute exacerbation, unspecified asthma severity, unspecified whether persistent ([facility]) Screening for colon cancer Special screening for malignant neoplasms, colon Asthmatic bronchitis with acute exacerbation, unspecified asthma severity, unspecified whether persistent ([facility])- Primary Primary hypertension ([facility]) Unspecified essential hypertension History of colonic polyps Personal history of colonic polyps Major depressive disorder with single episode, in partial remission (HCC) ([facility]) Obesity (BMI 30-39.9) Gastroenteritis- Primary Other and [...] with single episode, in partial remission (HCC) ([facility]) Thoracic spine pain Pain in thoracic spine BPH with urinary obstruction Hypertrophy of prostate with urinary obstruction and other lower urinary tract symptoms (LUTS) Nausea and vomiting, unspecified vomiting type- Primary Obesity (BMI 30-39.9) Gastroenteritis Other and unspecified noninfectious gastroenteritis and colitis Hypothyroidism (acquired) (CMS/HCC) Unspecified hypothyroidism documented in this encounter [facility]* Diagnosis Mild intermittent asthma without complication (CMS/HCC)- Primary documented in this encounter [facility]* Diagnosis MDD (major depressive disorder), single episode, in partial remission (HCC) ([facility])- Primary Screening for prostate cancer Special screening for malignant neoplasm of prostate Mixed hyperlipidemia (CMS/HCC) Mixed hyperlipidemia Hypothyroidism (acquired) ([facility]/HCC) Unspecified hypothyroidism Primary hypertension ([facility]/HCC) Unspecified essential hypertension Seasonal allergies Allergic rhinitis, cause unspecified Pre-diabetes Other abnormal glucose Dermatitis Contact dermatitis and other eczema, due to unspecified cause Major depressive disorder with single episode, in partial remission (HCC) ([facility]) Obesity (BMI 30-39.9)- Primary Asthmatic bronchitis with acute exacerbation, unspecified asthma severity, unspecified whether persistent ([facility]) Screening for colon cancer Special screening for malignant neoplasms, colon Asthmatic bronchitis with acute exacerbation, unspecified asthma severity, unspecified whether persistent (CMS/HCC)- Primary Primary hypertension (CMS/HCC) Unspecified essential hypertension History of colonic polyps Personal history of colonic polyps Major depressive disorder with single episode, in partial remission (HCC) ([facility]) Obesity (BMI 30-39.9) Gastroenteritis- Primary Other and unspecified noninfectious gastroenteritis and colitis Obesity (BMI 30-39.9) Hypothyroidism (acquired) ([facility])- Primary Unspecified hypothyroidism Allergic bronchopulmonary aspergillosis ([facility]/HCC) Allergic bronchopulmonary aspergillosis Primary hypertension ([facility]) Unspecified essential hypertension Obesity (BMI 30-39.9) Mild intermittent asthma without complication ([facility]/HCC) Primary hypertension ([facility])- Primary Unspecified essential hypertension Allergic bronchopulmonary aspergillosis ([facility]) Allergic bronchopulmonary aspergillosis Encounter for wellness examination in adult Screening for prostate cancer Special screening for malignant neoplasm of prostate Needs flu shot Need for prophylactic vaccination and inoculation against influenza Pleurisy Pleurisy without mention of effusion or current tuberculosis Gastroenteritis Other and unspecified noninfectious gastroenteritis and colitis Gastroesophageal reflux disease without esophagitis Esophageal reflux Obesity (BMI 30-39.9) Hypothyroidism (acquired) ([facility]) Unspecified hypothyroidism Pre-diabetes Other abnormal glucose Major depressive disorder with single episode, in partial remission (HCC) ([facility]) Thoracic spine pain Pain in thoracic spine BPH with urinary obstruction Hypertrophy of prostate with urinary obstruction and other lower urinary tract symptoms (LUTS) Nausea and vomiting, unspecified vomiting type- Primary Obesity (BMI 30-39.9) Gastroenteritis Other and unspecified noninfectious gastroenteritis and colitis RUQ pain- Primary Abdominal pain, right upper quadrant Type 2 diabetes mellitus without complication, without long-term current use of insulin ([facility]) Kidney stone on right side documented in this encounter [facility]* Diagnosis MDD (major depressive disorder), single episode, in partial remission (HCC) ([facility])- Primary Screening for prostate cancer Special screening for malignant neoplasm of prostate Mixed hyperlipidemia ([facility]/HCC) Mixed hyperlipidemia Hypothyroidism (acquired) ([facility]) Unspecified hypothyroidism Primary hypertension ([facility]) Unspecified essential hypertension Seasonal allergies Allergic rhinitis, cause unspecified Pre-diabetes Other abnormal glucose Dermatitis Contact dermatitis and other eczema, due to unspecified cause Major depressive disorder with single episode, in partial remission (HCC) ([facility]) Obesity (BMI 30-39.9)- Primary Asthmatic bronchitis with acute exacerbation, unspecified asthma severity, unspecified whether persistent ([facility]) Screening for colon cancer Special screening for malignant neoplasms, colon Asthmatic bronchitis with acute exacerbation, unspecified asthma severity, unspecified whether persistent (CMS/HCC)- Primary Primary hypertension ([facility]/HCC) Unspecified essential hypertension History of colonic polyps Personal history of colonic polyps Major depressive disorder with single episode, in partial remission (HCC) ([facility]) Obesity (BMI 30-39.9) Gastroenteritis- Primary Other and unspecified noninfectious gastroenteritis and colitis Obesity (BMI 30-39.9) Hypothyroidism (acquired) ([facility])- Primary Unspecified hypothyroidism Allergic bronchopulmonary aspergillosis ([facility]/HCC) Allergic bronchopulmonary aspergillosis Primary hypertension (CMS/HCC) Unspecified essential hypertension Obesity (BMI 30-39.9) Mild intermittent asthma without complication ([facility]/HCC) Primary hypertension ([facility]/HCC)- Primary Unspecified essential hypertension Allergic bronchopulmonary aspergillosis ([facility]) Allergic bronchopulmonary aspergillosis Encounter for wellness examination in adult Screening for prostate cancer Special screening for malignant neoplasm of prostate Needs flu shot Need for prophylactic vaccination and inoculation against influenza Pleurisy Pleurisy without mention of effusion or current tuberculosis Gastroenteritis Other and unspecified noninfectious gastroenteritis and colitis Gastroesophageal reflux disease without esophagitis Esophageal reflux Obesity (BMI 30-39.9) Hypothyroidism (acquired) ([facility]) Unspecified hypothyroidism Pre-diabetes Other abnormal glucose Major depressive disorder with single episode, in partial remission (HCC) ([facility]) Thoracic spine pain Pain in thoracic spine BPH with urinary obstruction Hypertrophy of prostate with urinary obstruction and other lower urinary tract symptoms (LUTS) Nausea and vomiting, unspecified vomiting type- Primary Obesity (BMI 30-39.9) Gastroenteritis Other and unspecified noninfectious gastroenteritis and colitis Asthmatic bronchitis with acute exacerbation, unspecified asthma severity, unspecified whether persistent ([facility])- Primary RUQ pain Abdominal pain, right upper quadrant Type 2 diabetes mellitus without complication, without long-term current use of insulin ([facility]) Kidney stone on right side Seasonal allergies Allergic rhinitis, cause unspecified ABPA (allergic bronchopulmonary aspergillosis) ([facility]) Allergic bronchopulmonary aspergillosis Primary hypertension ([facility]) Unspecified essential hypertension MDD (major depressive disorder), single episode, in partial remission (HCC) ([facility]) Obesity (BMI 30-39.9) documented in this encounter [facility]* Diagnosis MDD (major depressive disorder), single episode, in partial remission (HCC) ([facility])- Primary Screening for prostate cancer Special screening for malignant neoplasm of prostate Mixed hyperlipidemia ([facility]) Mixed hyperlipidemia Hypothyroidism (acquired) ([facility]) Unspecified hypothyroidism Primary hypertension ([facility]) Unspecified essential hypertension Seasonal allergies Allergic rhinitis, cause unspecified Pre-diabetes Other abnormal glucose Dermatitis Contact dermatitis and other eczema, due to unspecified cause Major depressive disorder with single episode, in partial remission (HCC) ([facility]) Obesity (BMI 30-39.9)- Primary Asthmatic bronchitis with acute exacerbation, unspecified asthma severity, unspecified whether persistent ([facility]) Screening for colon cancer Special screening for malignant neoplasms, colon Asthmatic bronchitis with acute exacerbation, unspecified asthma severity, unspecified whether persistent ([facility])- Primary Primary hypertension ([facility]) Unspecified essential hypertension History of colonic polyps Personal history of colonic polyps Major depressive disorder with single episode, in partial remission (HCC) ([facility]) Obesity (BMI 30-39.9) Gastroenteritis- Primary Other and unspecified noninfectious gastroenteritis and colitis Obesity (BMI 30-39.9) Hypothyroidism (acquired) ([facility])- Primary Unspecified hypothyroidism Allergic bronchopulmonary aspergillosis ([facility]) Allergic bronchopulmonary aspergillosis Primary hypertension ([facility]) Unspecified essential hypertension Obesity (BMI 30-39.9) Mild intermittent asthma without complication ([facility]) Primary hypertension ([facility])- Primary Unspecified essential hypertension Allergic bronchopulmonary aspergillosis ([facility]) Allergic bronchopulmonary aspergillosis Encounter for wellness examination in adult Screening for prostate cancer Special screening for malignant neoplasm of prostate Needs flu shot Need for prophylactic vaccination and inoculation against influenza Pleurisy Pleurisy without mention of effusion or current tuberculosis Gastroenteritis Other and unspecified noninfectious gastroenteritis and colitis Gastroesophageal reflux disease without esophagitis Esophageal reflux Obesity (BMI 30-39.9) Hypothyroidism (acquired) ([facility]) Unspecified hypothyroidism Pre-diabetes Other abnormal glucose Major depressive disorder with single episode, in partial remission (HCC) ([facility]) Thoracic spine pain Pain in thoracic spine BPH with urinary obstruction Hypertrophy of prostate with urinary obstruction and other lower urinary tract symptoms (LUTS) Nausea and vomiting, unspecified vomiting type- Primary Obesity (BMI 30-39.9) Gastroenteritis Other and unspecified noninfectious gastroenteritis and colitis Asthmatic bronchitis with acute exacerbation, unspecified asthma severity, unspecified whether persistent ([facility])- Primary RUQ pain Abdominal pain, right upper quadrant Type 2 diabetes mellitus without complication, without long-term current use of insulin (CMS/HCC) Kidney stone on right side Seasonal allergies Allergic rhinitis, cause unspecified ABPA (allergic bronchopulmonary aspergillosis) ([facility]/HCC) Allergic bronchopulmonary aspergillosis Primary hypertension ([facility]) Unspecified essential hypertension MDD (major depressive disorder), single episode, in partial remission (HCC) ([facility]) Obesity (BMI 30-39.9) URI, acute Acute upper respiratory infections of unspecified site Mild intermittent asthma without complication (CMS/HCC) documented in this encounter [facility] HealthcareEvaluation note* Diagnosis MDD (major depressive disorder), single episode, in partial remission (HCC) ([facility])- Primary Screening for prostate cancer Special screening for malignant neoplasm of prostate Mixed hyperlipidemia ([facility]/HCC) Mixed hyperlipidemia Hypothyroidism (acquired) ([facility]) Unspecified hypothyroidism Primary hypertension ([facility]) Unspecified essential hypertension Seasonal allergies Allergic rhinitis, cause unspecified Pre-diabetes Other abnormal glucose Dermatitis Contact dermatitis and other eczema, due to unspecified cause Major depressive disorder with single episode, in partial remission (HCC) ([facility]) Obesity (BMI 30-39.9)- Primary Asthmatic bronchitis with acute exacerbation, unspecified asthma severity, unspecified whether persistent ([facility]) Screening for colon cancer Special screening for malignant neoplasms, colon Asthmatic bronchitis with acute exacerbation, unspecified asthma severity, unspecified whether persistent ([facility])- Primary Primary hypertension ([facility]) Unspecified essential hypertension History of colonic polyps Personal history of colonic polyps Major depressive disorder with single episode, in partial remission (HCC) ([facility]) Obesity (BMI 30-39.9) Gastroenteritis- Primary Other and unspecified noninfectious gastroenteritis and colitis Obesity (BMI 30-39.9) Hypothyroidism (acquired) ([facility])- Primary Unspecified hypothyroidism 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 Primary hypertension ([facility]) Unspecified essential hypertension Obesity (BMI 30-39.9) Mild intermittent asthma without complication ([facility]/HCC) Primary hypertension ([facility]/HCC)- Primary Unspecified essential hypertension Allergic bronchopulmonary aspergillosis ([facility]/HCC) Allergic bronchopulmonary aspergillosis Encounter for wellness examination in adult Screening for prostate cancer Special screening for malignant neoplasm of prostate Needs flu shot Need for prophylactic vaccination and inoculation against influenza Pleurisy Pleurisy without mention of effusion or current tuberculosis Gastroenteritis Other and unspecified noninfectious gastroenteritis and colitis Gastroesophageal reflux disease without esophagitis Esophageal reflux Obesity (BMI 30-39.9) Hypothyroidism (acquired) ([facility]) Unspecified hypothyroidism Pre-diabetes Other abnormal glucose Major depressive disorder with single episode, in partial remission (HCC) ([facility]) Thoracic spine pain Pain in thoracic spine BPH with urinary obstruction Hypertrophy of prostate with urinary obstruction and other lower urinary tract symptoms (LUTS) Nausea and vomiting, unspecified vomiting type- Primary Obesity (BMI 30-39.9) Gastroenteritis Other and unspecified noninfectious gastroenteritis and colitis Asthmatic bronchitis with acute exacerbation, unspecified asthma severity, unspecified whether persistent ([facility])- Primary RUQ pain Abdominal pain, right upper quadrant Type 2 diabetes mellitus without complication, without long-term current use of insulin ([facility]) Kidney stone on right side Seasonal allergies Allergic rhinitis, cause unspecified ABPA (allergic bronchopulmonary aspergillosis) ([facility]) Allergic bronchopulmonary aspergillosis Primary hypertension ([facility]) Unspecified essential hypertension MDD (major depressive disorder), single episode, in partial remission (HCC) ([facility]) Obesity (BMI 30-39.9) URI, acute Acute upper respiratory infections of unspecified site Upper respiratory tract infection, unspecified type- Primary documented in this encounter [facility] HealthcareEvaluation note* Diagnosis MDD (major depressive disorder), single episode, in partial remission (HCC) ([facility])- Primary Screening for prostate cancer Special screening for malignant neoplasm of prostate Mixed hyperlipidemia ([facility] Mixed hyperlipidemia Hypothyroidism (acquired) ([facility] Unspecified hypothyroidism Primary hypertension ([facility]) Unspecified essential hypertension Seasonal allergies Allergic rhinitis, cause unspecified Pre-diabetes Other abnormal glucose Dermatitis Contact dermatitis and other eczema, due to unspecified cause Major depressive disorder with single episode, in partial remission (HCC) ([facility]) Obesity (BMI 30-39.9)- Primary Asthmatic bronchitis with acute exacerbation, unspecified asthma severity, unspecified whether persistent ([facility]) Screening for colon cancer Special screening for malignant neoplasms, colon Asthmatic bronchitis with acute exacerbation, unspecified asthma severity, unspecified whether persistent ([facility])- Primary Primary hypertension ([facility]) Unspecified essential hypertension History of colonic polyps Personal history of colonic polyps Major depressive disorder with single episode, in partial remission (HCC) ([facility]) Obesity (BMI 30-39.9) Gastroenteritis- Primary Other and unspecified noninfectious gastroenteritis and colitis Obesity (BMI 30-39.9) Hypothyroidism (acquired) ([facility])- Primary Unspecified hypothyroidism Allergic bronchopulmonary aspergillosis ([facility]/HCC) Allergic bronchopulmonary aspergillosis Primary hypertension ([facility]) Unspecified essential hypertension Obesity (BMI 30-39.9) Mild intermittent asthma without complication ([facility]) Primary hypertension ([facility])- Primary Unspecified essential hypertension Allergic bronchopulmonary aspergillosis ([facility]) Allergic bronchopulmonary aspergillosis Encounter for wellness examination in adult Screening for prostate cancer Special screening for malignant neoplasm of prostate Needs flu shot Need for prophylactic vaccination and inoculation against influenza Pleurisy Pleurisy without mention of effusion or current tuberculosis Gastroenteritis Other and unspecified noninfectious gastroenteritis and colitis Gastroesophageal reflux disease without esophagitis Esophageal reflux Obesity (BMI 30-39.9) Hypothyroidism (acquired) ([facility]) Unspecified hypothyroidism Pre-diabetes Other abnormal glucose Major depressive disorder with single episode, in partial remission (HCC) ([facility]) Thoracic spine pain Pain in thoracic spine BPH with urinary obstruction Hypertrophy of prostate with urinary obstruction and other lower urinary tract symptoms (LUTS) Nausea and vomiting, unspecified vomiting type- Primary Obesity (BMI 30-39.9) Gastroenteritis Other and unspecified noninfectious gastroenteritis and colitis Asthmatic bronchitis with acute exacerbation, unspecified asthma severity, unspecified whether persistent ([facility])- Primary RUQ pain Abdominal pain, right upper quadrant Type 2 diabetes mellitus without complication, without long-term current use of insulin ([facility]) Kidney stone on right side Seasonal allergies Allergic rhinitis, cause unspecified ABPA (allergic bronchopulmonary aspergillosis) ([facility]) Allergic bronchopulmonary aspergillosis Primary hypertension ([facility]) Unspecified essential hypertension MDD (major depressive disorder), single episode, in partial remission (HCC) ([facility]) Obesity (BMI 30-39.9) URI, acute Acute upper respiratory infections of unspecified site Gastroesophageal reflux disease without esophagitis Esophageal reflux documented in this encounter [facility] HealthcareEvaluation note* Diagnosis MDD (major depressive disorder), single episode, in partial remission (HCC) ([facility])- Primary Screening for prostate cancer Special screening for malignant neoplasm of prostate Mixed hyperlipidemia ([facility] Mixed hyperlipidemia Hypothyroidism (acquired) ([facility] Unspecified hypothyroidism Primary hypertension ([facility]) Unspecified essential hypertension Seasonal allergies Allergic rhinitis, cause unspecified Pre-diabetes Other abnormal glucose Dermatitis Contact dermatitis and other eczema, due to unspecified cause Major depressive disorder with single episode, in partial remission (HCC) ([facility]) Obesity (BMI 30-39.9)- Primary Asthmatic bronchitis with acute exacerbation, unspecified asthma severity, unspecified whether persistent ([facility]) Screening for colon cancer Special screening for malignant neoplasms, colon Asthmatic bronchitis with acute exacerbation, unspecified asthma severity, unspecified whether persistent ([facility]/HCC)- Primary Primary hypertension ([facility]) Unspecified essential hypertension History of colonic polyps Personal history of colonic polyps Major depressive disorder with single episode, in partial remission (HCC) ([facility]) Obesity (BMI 30-39.9) Gastroenteritis- Primary Other and unspecified noninfectious gastroenteritis and colitis Obesity (BMI 30-39.9) Hypothyroidism (acquired) ([facility])- Primary Unspecified hypothyroidism Allergic bronchopulmonary aspergillosis ([facility]) Allergic bronchopulmonary aspergillosis Primary hypertension ([facility]) Unspecified essential hypertension Obesity (BMI 30-39.9) Mild intermittent asthma without complication ([facility]) Primary hypertension ([facility])- Primary Unspecified essential hypertension Allergic bronchopulmonary aspergillosis ([facility]) Allergic bronchopulmonary aspergillosis Encounter for wellness examination in adult Screening for prostate cancer Special screening for malignant neoplasm of prostate Needs flu shot Need for prophylactic vaccination and inoculation against influenza Pleurisy Pleurisy without mention of effusion or current tuberculosis Gastroenteritis Other and unspecified noninfectious gastroenteritis and colitis Gastroesophageal reflux disease without esophagitis Esophageal reflux Obesity (BMI 30-39.9) Hypothyroidism (acquired) ([facility]) Unspecified hypothyroidism Pre-diabetes Other abnormal glucose Major depressive disorder with single episode, in partial remission (HCC) ([facility]) Thoracic spine pain Pain in thoracic spine BPH with urinary obstruction Hypertrophy of prostate with urinary obstruction and other lower urinary tract symptoms (LUTS) Nausea and vomiting, unspecified vomiting type- Primary Obesity (BMI 30-39.9) Gastroenteritis Other and unspecified noninfectious gastroenteritis and colitis Asthmatic bronchitis with acute exacerbation, unspecified asthma severity, unspecified whether persistent ([facility])- Primary RUQ pain Abdominal pain, right upper quadrant Type 2 diabetes mellitus without complication, without long-term current use of insulin ([facility]) Kidney stone on right side Seasonal allergies Allergic rhinitis, cause unspecified ABPA (allergic bronchopulmonary aspergillosis) ([facility]/HCC) Allergic bronchopulmonary aspergillosis Primary hypertension ([facility]/HCC) Unspecified essential hypertension MDD (major depressive disorder), single episode, in partial remission (HCC) ([facility]) Obesity (BMI 30-39.9) URI, acute Acute upper respiratory infections of unspecified site Other atopic dermatitis- Primary Melanocytic nevus of trunk Benign neoplasm of skin of trunk, except scrotum Lentigines documented in this encounter [facility] HealthcareEvaluation note* Diagnosis MDD (major depressive disorder), single episode, in partial remission (HCC) ([facility])- Primary Screening for prostate cancer Special screening for malignant neoplasm of prostate Mixed hyperlipidemia ([facility]/HCC) Mixed hyperlipidemia Hypothyroidism (acquired) ([facility]) Unspecified hypothyroidism Primary hypertension ([facility]) Unspecified essential hypertension Seasonal allergies Allergic rhinitis, cause unspecified Pre-diabetes Other abnormal glucose Dermatitis Contact dermatitis and other eczema, due to unspecified cause Major depressive disorder with single episode, in partial remission (HCC) ([facility]) Obesity (BMI 30-39.9)- Primary Asthmatic bronchitis with acute exacerbation, unspecified asthma severity, unspecified whether persistent ([facility]) Screening for colon cancer Special screening for malignant neoplasms, colon Asthmatic bronchitis with acute exacerbation, unspecified asthma severity, unspecified whether persistent ([facility])- Primary Primary hypertension ([facility]) Unspecified essential hypertension History of colonic polyps Personal history of colonic polyps Major depressive disorder with single episode, in partial remission (HCC) ([facility]) Obesity (BMI 30-39.9) Gastroenteritis- Primary Other and unspecified noninfectious gastroenteritis and colitis Obesity (BMI 30-39.9) Hypothyroidism (acquired) ([facility])- Primary Unspecified hypothyroidism Allergic bronchopulmonary aspergillosis ([facility]/HCC) Allergic bronchopulmonary aspergillosis Primary hypertension ([facility]/HCC) Unspecified essential hypertension Obesity (BMI 30-39.9) Mild intermittent asthma without complication ([facility]/HCC) Primary hypertension ([facility]/HCC)- Primary Unspecified essential hypertension Allergic bronchopulmonary aspergillosis ([facility]/HCC) Allergic bronchopulmonary aspergillosis Encounter for wellness examination in adult Screening for prostate cancer Special screening for malignant neoplasm of prostate Needs flu shot Need for prophylactic vaccination and inoculation against influenza Pleurisy Pleurisy without mention of effusion or current tuberculosis Gastroenteritis Other and unspecified noninfectious gastroenteritis and colitis Gastroesophageal reflux disease without esophagitis Esophageal reflux Obesity (BMI 30-39.9) Hypothyroidism (acquired) ([facility]) Unspecified hypothyroidism Pre-diabetes Other abnormal glucose Major depressive disorder with single episode, in partial remission (HCC) ([facility]) Thoracic spine pain Pain in thoracic spine BPH with urinary obstruction Hypertrophy of prostate with urinary obstruction and other lower urinary tract symptoms (LUTS) Nausea and vomiting, unspecified vomiting type- Primary Obesity (BMI 30-39.9) Gastroenteritis Other and unspecified noninfectious gastroenteritis and colitis Asthmatic bronchitis with acute exacerbation, unspecified asthma severity, unspecified whether persistent ([facility])- Primary RUQ pain Abdominal pain, right upper quadrant Type 2 diabetes mellitus without complication, without long-term current use of insulin ([facility]) Kidney stone on right side Seasonal allergies Allergic rhinitis, cause unspecified ABPA (allergic bronchopulmonary aspergillosis) ([facility]) Allergic bronchopulmonary aspergillosis Primary hypertension ([facility]) Unspecified essential hypertension MDD (major depressive disorder), single episode, in partial remission (HCC) ([facility]) Obesity (BMI 30-39.9) URI, acute Acute upper respiratory infections of unspecified site Hypothyroidism (acquired) ([facility]) Unspecified hypothyroidism documented in this encounter [facility]* Diagnosis MDD (major depressive disorder), single episode, in partial remission (HCC) ([facility])- Primary Screening for prostate cancer Special screening for malignant neoplasm of prostate Mixed hyperlipidemia ([facility]) Mixed hyperlipidemia Hypothyroidism (acquired) ([facility] Unspecified hypothyroidism Primary hypertension ([facility]) Unspecified essential hypertension Seasonal allergies Allergic rhinitis, cause unspecified Pre-diabetes Other abnormal glucose Dermatitis Contact dermatitis and other eczema, due to unspecified cause Major depressive disorder with single episode, in partial remission (HCC) ([facility]) Obesity (BMI 30-39.9)- Primary Asthmatic bronchitis with acute exacerbation, unspecified asthma severity, unspecified whether persistent ([facility]) Screening for colon cancer Special screening for malignant neoplasms, colon Asthmatic bronchitis with acute exacerbation, unspecified asthma severity, unspecified whether persistent ([facility])- Primary Primary hypertension ([facility]) Unspecified essential hypertension History of colonic polyps Personal history of colonic polyps Major depressive disorder with single episode, in partial remission (HCC) ([facility]) Obesity (BMI 30-39.9) Gastroenteritis- Primary Other and unspecified noninfectious gastroenteritis and colitis Obesity (BMI 30-39.9) Hypothyroidism (acquired) ([facility])- Primary Unspecified hypothyroidism Allergic bronchopulmonary aspergillosis ([facility]/HCC) Allergic bronchopulmonary aspergillosis Primary hypertension ([facility]/HCC) Unspecified essential hypertension Obesity (BMI 30-39.9) Mild intermittent asthma without complication (CMS/HCC) Primary hypertension ([facility]/HCC)- Primary Unspecified essential hypertension Allergic bronchopulmonary aspergillosis ([facility]/HCC) Allergic bronchopulmonary aspergillosis Encounter for wellness examination in adult Screening for prostate cancer Special screening for malignant neoplasm of prostate Needs flu shot Need for prophylactic vaccination and inoculation against influenza Pleurisy Pleurisy without mention of effusion or current tuberculosis Gastroenteritis Other and unspecified noninfectious gastroenteritis and colitis Gastroesophageal reflux disease without esophagitis Esophageal reflux Obesity (BMI 30-39.9) Hypothyroidism (acquired) ([facility]) Unspecified hypothyroidism Pre-diabetes Other abnormal glucose Major depressive disorder with single episode, in partial remission (HCC) ([facility]) Thoracic spine pain Pain in thoracic spine BPH with urinary obstruction Hypertrophy of prostate with urinary obstruction and other lower urinary tract symptoms (LUTS) Nausea and vomiting, unspecified vomiting type- Primary Obesity (BMI 30-39.9) Gastroenteritis Other and unspecified noninfectious gastroenteritis and colitis Asthmatic bronchitis with acute exacerbation, unspecified asthma severity, unspecified whether persistent ([facility])- Primary RUQ pain Abdominal pain, right upper quadrant Type 2 diabetes mellitus without complication, without long-term current use of insulin ([facility]) Kidney stone on right side Seasonal allergies Allergic rhinitis, cause unspecified ABPA (allergic bronchopulmonary aspergillosis) ([facility]) Allergic bronchopulmonary aspergillosis Primary hypertension ([facility]) Unspecified essential hypertension MDD (major depressive disorder), single episode, in partial remission (HCC) ([facility]) Obesity (BMI 30-39.9) URI, acute Acute upper respiratory infections of unspecified site Type 2 diabetes mellitus without complication, without long-term current use of insulin ([facility])- Primary Type 2 diabetes mellitus with other specified complication ([facility]) Male erectile dysfunction, unspecified 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 Obesity (BMI 30-39.9) Primary hypertension ([facility]) Unspecified essential hypertension Kidney stone on right side Gastroesophageal reflux disease without esophagitis Esophageal reflux Family history of celiac disease Family history of other digestive disorders documented in this encounter [facility] HealthcareEvaluation note* Diagnosis MDD (major depressive disorder), single episode, in partial remission (HCC) ([facility])- Primary Screening for prostate cancer Special screening for malignant neoplasm of prostate Mixed hyperlipidemia ([facility]) Mixed hyperlipidemia Hypothyroidism (acquired) ([facility] Unspecified hypothyroidism Primary hypertension ([facility]) Unspecified essential hypertension Seasonal allergies Allergic rhinitis, cause unspecified Pre-diabetes Other abnormal glucose Dermatitis Contact dermatitis and other eczema, due to unspecified cause Major depressive disorder with single episode, in partial remission (HCC) ([facility]) Obesity (BMI 30-39.9)- Primary Asthmatic bronchitis with acute exacerbation, unspecified asthma severity, unspecified whether persistent ([facility]) Screening for colon cancer Special screening for malignant neoplasms, colon Asthmatic bronchitis with acute exacerbation, unspecified asthma severity, unspecified whether persistent ([facility])- Primary Primary hypertension ([facility]) Unspecified essential hypertension History of colonic polyps Personal history of colonic polyps Major depressive disorder with single episode, in partial remission (HCC) ([facility]) Obesity (BMI 30-39.9) Gastroenteritis- Primary Other and unspecified noninfectious gastroenteritis and colitis Obesity (BMI 30-39.9) Hypothyroidism (acquired) ([facility])- Primary Unspecified hypothyroidism Allergic bronchopulmonary aspergillosis ([facility]) Allergic bronchopulmonary aspergillosis Primary hypertension ([facility]) Unspecified essential hypertension Obesity (BMI 30-39.9) Mild intermittent asthma without complication ([facility]) Primary hypertension ([facility])- Primary Unspecified essential hypertension Allergic bronchopulmonary aspergillosis ([facility]) Allergic bronchopulmonary aspergillosis Encounter for wellness examination in adult Screening for prostate cancer Special screening for malignant neoplasm of prostate Needs flu shot Need for prophylactic vaccination and inoculation against influenza Pleurisy Pleurisy without mention of effusion or current tuberculosis Gastroenteritis Other and unspecified noninfectious gastroenteritis and colitis Gastroesophageal reflux disease without esophagitis Esophageal reflux Obesity (BMI 30-39.9) Hypothyroidism (acquired) ([facility]) Unspecified hypothyroidism Pre-diabetes Other abnormal glucose Major depressive disorder with single episode, in partial remission (HCC) ([facility]) Thoracic spine pain Pain in thoracic spine BPH with urinary obstruction Hypertrophy of prostate with urinary obstruction and other lower urinary tract symptoms (LUTS) Nausea and vomiting, unspecified vomiting type- Primary Obesity (BMI 30-39.9) Gastroenteritis Other and unspecified noninfectious gastroenteritis and colitis Asthmatic bronchitis with acute exacerbation, unspecified asthma severity, unspecified whether persistent ([facility])- Primary RUQ pain Abdominal pain, right upper quadrant Type 2 diabetes mellitus without complication, without long-term current use of insulin ([facility]) Kidney stone on right side Seasonal allergies Allergic rhinitis, cause unspecified ABPA (allergic bronchopulmonary aspergillosis) ([facility]) Allergic bronchopulmonary aspergillosis Primary hypertension ([facility]) Unspecified essential hypertension MDD (major depressive disorder), single episode, in partial remission (HCC) ([facility]) Obesity (BMI 30-39.9) URI, acute Acute upper respiratory infections of unspecified site Type 2 diabetes mellitus without complication, without long-term current use of insulin ([facility])- Primary Type 2 diabetes mellitus with other specified complication ([facility]) Male erectile dysfunction, unspecified Allergic bronchopulmonary aspergillosis ([facility]) Allergic bronchopulmonary aspergillosis Obesity (BMI 30-39.9) Primary hypertension ([facility]) Unspecified essential hypertension Kidney stone on right side Gastroesophageal reflux disease without esophagitis Esophageal reflux Family history of celiac disease Family history of other digestive disorders Mild intermittent asthma without complication ([facility]) documented in this encounter [facility] HealthcareEvaluation note* Diagnosis MDD (major depressive disorder), single episode, in partial remission (HCC) ([facility])- Primary Screening for prostate cancer Special screening for malignant neoplasm of prostate Mixed hyperlipidemia ([facility] Mixed hyperlipidemia Hypothyroidism (acquired) ([facility] Unspecified hypothyroidism Primary hypertension ([facility]) Unspecified essential hypertension Seasonal allergies Allergic rhinitis, cause unspecified Pre-diabetes Other abnormal glucose Dermatitis Contact dermatitis and other eczema, due to unspecified cause Major depressive disorder with single episode, in partial remission (HCC) ([facility]) Obesity (BMI 30-39.9)- Primary Asthmatic bronchitis with acute exacerbation, unspecified asthma severity, unspecified whether persistent ([facility]) Screening for colon cancer Special screening for malignant neoplasms, colon Asthmatic bronchitis with acute exacerbation, unspecified asthma severity, unspecified whether persistent (CMS/HCC)- Primary Primary hypertension ([facility]) Unspecified essential hypertension History of colonic polyps Personal history of colonic polyps Major depressive disorder with single episode, in partial remission (HCC) ([facility]) Obesity (BMI 30-39.9) Gastroenteritis- Primary Other and unspecified noninfectious gastroenteritis and colitis Obesity (BMI 30-39.9) Hypothyroidism (acquired) ([facility])- Primary Unspecified hypothyroidism Allergic bronchopulmonary aspergillosis ([facility]/HCC) Allergic bronchopulmonary aspergillosis Primary hypertension ([facility]) Unspecified essential hypertension Obesity (BMI 30-39.9) Mild intermittent asthma without complication ([facility]) Primary hypertension ([facility])- Primary Unspecified essential hypertension Allergic bronchopulmonary aspergillosis ([facility]) Allergic bronchopulmonary aspergillosis Encounter for wellness examination in adult Screening for prostate cancer Special screening for malignant neoplasm of prostate Needs flu shot Need for prophylactic vaccination and inoculation against influenza Pleurisy Pleurisy without mention of effusion or current tuberculosis Gastroenteritis Other and unspecified noninfectious gastroenteritis and colitis Gastroesophageal reflux disease without esophagitis Esophageal reflux Obesity (BMI 30-39.9) Hypothyroidism (acquired) ([facility]) Unspecified hypothyroidism Pre-diabetes Other abnormal glucose Major depressive disorder with single episode, in partial remission (HCC) ([facility]) Thoracic spine pain Pain in thoracic spine BPH with urinary obstruction Hypertrophy of prostate with urinary obstruction and other lower urinary tract symptoms (LUTS) Nausea and vomiting, unspecified vomiting type- Primary Obesity (BMI 30-39.9) Gastroenteritis Other and unspecified noninfectious gastroenteritis and colitis Asthmatic bronchitis with acute exacerbation, unspecified asthma severity, unspecified whether persistent ([facility])- Primary RUQ pain Abdominal pain, right upper quadrant Type 2 diabetes mellitus without complication, without long-term current use of insulin Kidney stone on right side Seasonal allergies Allergic rhinitis, cause unspecified ABPA (allergic bronchopulmonary aspergillosis) ([facility]) Allergic bronchopulmonary aspergillosis Primary hypertension ([facility]) Unspecified essential hypertension MDD (major depressive disorder), single episode, in partial remission (HCC) ([facility]) Obesity (BMI 30-39.9) URI, acute Acute upper respiratory infections of unspecified site Type 2 diabetes mellitus without complication, without long-term current use of insulin- Primary Type 2 diabetes mellitus with other specified complication Male erectile dysfunction, unspecified Allergic bronchopulmonary aspergillosis ([facility]/HCC) Allergic bronchopulmonary aspergillosis Obesity (BMI 30-39.9) Primary hypertension ([facility]) Unspecified essential hypertension Kidney stone on right side Gastroesophageal reflux disease without esophagitis Esophageal reflux Family history of celiac disease Family history of other digestive disorders Primary hypertension ([facility]/HCC)- Primary Unspecified essential hypertension Type 2 diabetes mellitus without complication, without long-term current use of insulin Obesity (BMI 30-39.9) Tremors of nervous system documented in this encounter [facility]* Diagnosis MDD (major depressive disorder), single episode, in partial remission (HCC) ([facility])- Primary Screening for prostate cancer Special screening for malignant neoplasm of prostate Mixed hyperlipidemia ([facility] Mixed hyperlipidemia Hypothyroidism (acquired) ([facility]) Unspecified hypothyroidism Primary hypertension ([facility]) Unspecified essential hypertension Seasonal allergies Allergic rhinitis, cause unspecified Pre-diabetes Other abnormal glucose Dermatitis Contact dermatitis and other eczema, due to unspecified cause Major depressive disorder with single episode, in partial remission (HCC) ([facility]) Obesity (BMI 30-39.9)- Primary Asthmatic bronchitis with acute exacerbation, unspecified asthma severity, unspecified whether persistent ([facility]) Screening for colon cancer Special screening for malignant neoplasms, colon Asthmatic bronchitis with acute exacerbation, unspecified asthma severity, unspecified whether persistent ([facility])- Primary Primary hypertension ([facility]) Unspecified essential hypertension History of colonic polyps Personal history of colonic polyps Major depressive disorder with single episode, in partial remission (HCC) ([facility]) Obesity (BMI 30-39.9) Gastroenteritis- Primary Other and unspecified noninfectious gastroenteritis and colitis Obesity (BMI 30-39.9) Hypothyroidism (acquired) ([facility])- Primary Unspecified hypothyroidism Allergic bronchopulmonary aspergillosis ([facility]/HCC) Allergic bronchopulmonary aspergillosis Primary hypertension ([facility]) Unspecified essential hypertension Obesity (BMI 30-39.9) Mild intermittent asthma without complication ([facility]/HCC) Primary hypertension ([facility]/HCC)- Primary Unspecified essential hypertension Allergic bronchopulmonary aspergillosis ([facility]/HCC) Allergic bronchopulmonary aspergillosis Encounter for wellness examination in adult Screening for prostate cancer Special screening for malignant neoplasm of prostate Needs flu shot Need for prophylactic vaccination and inoculation against influenza Pleurisy Pleurisy without mention of effusion or current tuberculosis Gastroenteritis Other and unspecified noninfectious gastroenteritis and colitis Gastroesophageal reflux disease without esophagitis Esophageal reflux Obesity (BMI 30-39.9) Hypothyroidism (acquired) ([facility]) Unspecified hypothyroidism Pre-diabetes Other abnormal glucose Major depressive disorder with single episode, in partial remission (HCC) ([facility]) Thoracic spine pain Pain in thoracic spine BPH with urinary obstruction Hypertrophy of prostate with urinary obstruction and other lower urinary tract symptoms (LUTS) Nausea and vomiting, unspecified vomiting type- Primary Obesity (BMI 30-39.9) Gastroenteritis Other and unspecified noninfectious gastroenteritis and colitis Asthmatic bronchitis with acute exacerbation, unspecified asthma severity, unspecified whether persistent ([facility])- Primary RUQ pain Abdominal pain, right upper quadrant Type 2 diabetes mellitus without complication, without long-term current use of insulin Kidney stone on right side Seasonal allergies Allergic rhinitis, cause unspecified ABPA (allergic bronchopulmonary aspergillosis) ([facility]) Allergic bronchopulmonary aspergillosis Primary hypertension ([facility]) Unspecified essential hypertension MDD (major depressive disorder), single episode, in partial remission (HCC) ([facility]) Obesity (BMI 30-39.9) URI, acute Acute upper respiratory infections of unspecified site Type 2 diabetes mellitus without complication, without long-term current use of insulin- Primary Type 2 diabetes mellitus with other specified complication Male erectile dysfunction, unspecified Allergic bronchopulmonary aspergillosis ([facility]) Allergic bronchopulmonary aspergillosis Obesity (BMI 30-39.9) Primary hypertension ([facility]) Unspecified essential hypertension Kidney stone on right side Gastroesophageal reflux disease without esophagitis Esophageal reflux Family history of celiac disease Family history of other digestive disorders Tremors of nervous system- Primary Primary hypertension ([facility]) Unspecified essential hypertension Type 2 diabetes mellitus without complication, without long-term current use of insulin Obesity (BMI 30-39.9) Gastroesophageal reflux disease without esophagitis Esophageal reflux documented in this encounter [facility] HealthcareEvaluation note* Diagnosis MDD (major depressive disorder), single episode, in partial remission (HCC) ([facility])- Primary Screening for prostate cancer Special screening for malignant neoplasm of prostate Mixed hyperlipidemia ([facility] Mixed hyperlipidemia Hypothyroidism (acquired) ([facility] Unspecified hypothyroidism Primary hypertension ([facility]) Unspecified essential hypertension Seasonal allergies Allergic rhinitis, cause unspecified Pre-diabetes Other abnormal glucose Dermatitis Contact dermatitis and other eczema, due to unspecified cause Major depressive disorder with single episode, in partial remission (HCC) ([facility]) Obesity (BMI 30-39.9)- Primary Asthmatic bronchitis with acute exacerbation, unspecified asthma severity, unspecified whether persistent ([facility]) Screening for colon cancer Special screening for malignant neoplasms, colon Asthmatic bronchitis with acute exacerbation, unspecified asthma severity, unspecified whether persistent (CMS/HCC)- Primary Primary hypertension ([facility]) Unspecified essential hypertension History of colonic polyps Personal history of colonic polyps Major depressive disorder with single episode, in partial remission (HCC) ([facility]) Obesity (BMI 30-39.9) Gastroenteritis- Primary Other and unspecified noninfectious gastroenteritis and colitis Obesity (BMI 30-39.9) Hypothyroidism (acquired) ([facility])- Primary Unspecified hypothyroidism Allergic bronchopulmonary aspergillosis ([facility] Allergic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
--- NOTE | 2025-08-18 11:24 | ECG_ITS ---
[facility] Test Date: 2025-08-18 Pat Name: JULISA BATISTA Department: Room: - Gender: Male [employer]pper: : 1955 Requested By: SJ GUARDADO Order Number: [id number] Reading MD: HUNG RENDON M.D. Measurements Intervals [place] Rate: 71 P: 30 CA: 172 QRS: 26 QRSD: 86 T: 46 QT: 368 QTc: 400 Interpretive Statements SINUS RHYTHM WITH OCCASIONAL ECTOPIC PREMATURE COMPLEXES LOW QRS VOLTAGE IN PRECORDIAL LEADS [QRS DEFLECTION < 1.0 mV IN CHEST LEADS] Borderline ECG No previous ECG available for comparison Electronically Signed On 08-18-2025 19:41:24 EST by HUNG RENDON M.D.
[2025-08-18 11:49] LABS: Hematocrit 44.1 % (42.0-54.0); Hemoglobin 14.5 g/dL (14.0-18.0); Immature Granulocytes Abs Auto 0.02 10^3/uL (0.00-0.03); Immature Granulocytes Pct Auto 0.3 % (0.0-0.5); Lymphocytes Absolute Auto 1.8 10^3/uL (1.2-3.8); Mean Corpuscular HGB Conc 32.9 g/dL (29.9-35.2); Mean Corpuscular Hemoglobin 30.3 pg (25.9-34.0); Mean Corpuscular Volume 92.1 fL (80.0-94.0); Platelet Count 262 10^3/uL (150-450); Red Blood Count 4.79 10^6/uL (4.70-6.10); White Blood Count 6.3 10^3/uL (4.0-11.0)
[2025-08-18 11:53] LABS: Anion Gap 11.7; Blood Urea Nitrogen 20.0 mg/dL (7.0-18.0); Calcium 9.2 mg/dL (8.5-10.1); Carbon Dioxide 27.7 mmol/L (21.0-32.0); Chloride 107 mmol/L (98-107); Estimated GFR (African America >60 (>=60 mL/min/1.73m^2); Estimated GFR (Non-African Ame >60 (>=60 mL/min/1.73m^2); Glucose 88 mg/dL (74-106); Potassium 4.4 mmol/L (3.5-5.1); Sodium 142 mmol/L (136-145)
== END 2025-08-18 11:11 | disposition home or self-care (01) ==
LOC: LAB 11:15
PROVIDERS: PCP Nurse Practitioner
DX: Z01.818 Encounter for other preprocedural examination (principal); Z01.812 Encounter for preprocedural laboratory examination
CPT/HCPCS: 36415; 80048; 85025; 93005